=== PATIENT | female | born 1945 | race Caucasian/White ===

== ENCOUNTER → 2019-07-27 11:33 | Outpatient (CLI) | payer MEDICARE, BC, SELFPAY ==
--- NOTE | 2019-07-27 | DI.MG.S_ITS ---
BILATERAL DIGITAL SCREENING MAMMOGRAM 3D/2D WITH CAD: 07/27/2019 CLINICAL: Routine screening. Family history of breast cancer. Comparison is made to exams dated: 08/24/2017 mammogram, 08/13/2015 mammogram, and 08/02/2014 mammogram - [facility]. The tissue of both breasts is heterogeneously dense. This may lower the sensitivity of mammography. Current study was also evaluated with a Computer Aided Detection (CAD) system. No significant masses, calcifications, or other findings are seen in either breast. There has been no significant interval change. IMPRESSION: NEGATIVE There is no mammographic evidence of malignancy. A 1 year screening mammogram is recommended. This exam was interpreted at Station ID: [id number]. NOTE: For mammograms, a report in lay terms will be sent to the patient. Approximately 15% of breast malignancies will not be visualized mammographically. In the management of a palpable breast mass, a negative mammogram must not discourage biopsy of a clinically suspicious lesion. Electronically Signed By: Rafael conde/niyah:07/27/2019 16:25:09 letter sent: Normal Exam ACR BI-RADS Category 1: Negative 3341F
== END ==
PROVIDERS: PCP Student in an Organized Health Care Education/Training Program; Visit Provider Student in an Organized Health Care Education/Training Program
DX: Z12.31 Encounter for screening mammogram for malignant neoplasm of breast (principal); Z80.3 Family history of malignant neoplasm of breast
CPT/HCPCS: 77063; 77067

== ENCOUNTER → 2019-09-24 12:34 | Outpatient (CLI) | payer MEDICARE, BC, SELFPAY | PROVIDERS: PCP Student in an Organized Health Care Education/Training Program; Visit Provider Student in an Organized Health Care Education/Training Program | DX: Z13.820 Encounter for screening for osteoporosis (principal); Z78.0 Asymptomatic menopausal state; E07.9 Disorder of thyroid, unspecified; Z90.722 Acquired absence of ovaries, bilateral | CPT/HCPCS: 77080 ==

== ENCOUNTER → 2020-09-05 11:56 | Outpatient (CLI) | payer MEDICARE, BC, SELFPAY ==
--- NOTE | 2020-09-05 | DI.MG.S_ITS ---
BILATERAL DIGITAL SCREENING MAMMOGRAM 3D/2D WITH CAD: 09/05/2020 CLINICAL: Routine screening. Family history of breast cancer. Comparison is made to exams dated: 07/27/2019 mammogram, 08/24/2017 mammogram, and 08/13/2015 mammogram - [facility]. The tissue of both breasts is heterogeneously dense. This may lower the sensitivity of mammography. Current study was also evaluated with a Computer Aided Detection (CAD) system. No significant masses, calcifications, or other findings are seen in either breast. There has been no significant interval change. IMPRESSION: NEGATIVE There is no mammographic evidence of malignancy. A 1 year screening mammogram is recommended. This exam was interpreted at Station ID: [id number]. NOTE: For mammograms, a report in lay terms will be sent to the patient. Approximately 15% of breast malignancies will not be visualized mammographically. In the management of a palpable breast mass, a negative mammogram must not discourage biopsy of a clinically suspicious lesion. Electronically Signed By: Carly green/niyah:09/05/2020 12:51:48 letter sent: Normal Exam ACR BI-RADS Category 1: Negative 3341F
== END ==
PROVIDERS: PCP Student in an Organized Health Care Education/Training Program; Referring Provider Student in an Organized Health Care Education/Training Program; Visit Provider Student in an Organized Health Care Education/Training Program
DX: Z12.31 Encounter for screening mammogram for malignant neoplasm of breast (principal); Z80.3 Family history of malignant neoplasm of breast
CPT/HCPCS: 77063; 77067

== ENCOUNTER → 2021-09-14 08:34 | Outpatient (CLI) | payer MEDICARE, BC, SELFPAY ==
--- NOTE | 2021-09-14 08:35 | DI.MG.S_ITS ---
BILATERAL DIGITAL SCREENING MAMMOGRAM 3D/2D WITH CAD: 09/14/2021 CLINICAL: Routine screening. Family history of breast cancer. Comparison is made to exams dated: 09/05/2020 mammogram, 07/27/2019 mammogram, and 08/24/2017 mammogram - [facility]. The tissue of both breasts is heterogeneously dense. This may lower the sensitivity of mammography. Current study was also evaluated with a Computer Aided Detection (CAD) system. There is a possible developing irregular asymmetry in the left breast at 12 o'clock posterior depth. This is more prominent and increased in size. No other significant masses, calcifications, or other findings are seen in either breast. IMPRESSION: INCOMPLETE: NEEDS ADDITIONAL IMAGING EVALUATION The possible developing irregular asymmetry in the left breast is indeterminate. Additional views with possible ultrasound are recommended. This exam was interpreted at Station ID: [id number]. NOTE: For mammograms, a report in lay terms will be sent to the patient. Approximately 15% of breast malignancies will not be visualized mammographically. In the management of a palpable breast mass, a negative mammogram must not discourage biopsy of a clinically suspicious lesion. Electronically Signed By: Bridget angel/niyah:09/14/2021 10:31:50 letter sent: Additional Imaging Needed ACR BI-RADS Category 0: Incomplete 3340F
== END ==
PROVIDERS: PCP Student in an Organized Health Care Education/Training Program; Referring Provider Student in an Organized Health Care Education/Training Program; Visit Provider Student in an Organized Health Care Education/Training Program
DX: Z12.31 Encounter for screening mammogram for malignant neoplasm of breast (principal); Z80.3 Family history of malignant neoplasm of breast
CPT/HCPCS: 77063; 77067

== ENCOUNTER → 2021-09-21 11:47 | Outpatient (CLI) | payer MEDICARE, BC, SELFPAY ==
--- NOTE | 2021-09-21 | DI.MG.S_ITS ---
UNILATERAL LEFT DIGITAL DIAGNOSTIC MAMMOGRAM 3D/2D WITH ADDITIONAL VIEWS: 09/21/2021 CLINICAL: Additional evaluation requested from prior study. Comparison is made to exams dated: 09/14/2021 mammogram, 09/05/2020 mammogram, 07/27/2019 mammogram, 08/24/2017 mammogram, and 08/13/2015 mammogram - [facility]. The tissue of left breast is heterogeneously dense. This may lower the sensitivity of mammography. The previously seen focal asymmetry in the left breast at the 12 o'clock position posterior depth disperses on spot compression views, compatible with normal fibroglandular breast tissue. No significant masses, calcifications, or other findings are seen in the breast. IMPRESSION: NEGATIVE There is no mammographic evidence of malignancy. A 1 year screening mammogram is recommended. This exam was interpreted at Station ID: [id number]. NOTE: For mammograms, a report in lay terms will be sent to the patient. Approximately 15% of breast malignancies will not be visualized mammographically. In the management of a palpable breast mass, a negative mammogram must not discourage biopsy of a clinically suspicious lesion. Electronically Signed By: Ruddy ng/niyah:09/21/2021 12:21:33 letter sent: Normal Exam ACR BI-RADS Category 1: Negative 3341F
== END ==
PROVIDERS: PCP Student in an Organized Health Care Education/Training Program; Referring Provider Student in an Organized Health Care Education/Training Program; Visit Provider Student in an Organized Health Care Education/Training Program
DX: R92.8 Other abnormal and inconclusive findings on diagnostic imaging of breast (principal)
CPT/HCPCS: 77065; G0279

== ENCOUNTER → 2021-11-23 10:16 | Outpatient (CLI) | payer MEDICARE, OTHER, SELFPAY ==
[2021-11-23 15:19] LABS: COVID19 -Nasal RAPID Negative (Negative)
== END ==
PROVIDERS: PCP Student in an Organized Health Care Education/Training Program; Visit Provider Physician Assistant
DX: Z01.812 Encounter for preprocedural laboratory examination (principal); Z20.822 Contact with and (suspected) exposure to COVID-19
CPT/HCPCS: 87635; C9803

== ENCOUNTER 2021-11-24 08:22 | Day surgery (SDC) | payer MEDICARE, OTHER, SELFPAY ==
[2021-11-24 09:42] VITALS: BP 149/79; PULSE 70; RESP 18; TEMP 36.6; O2SAT 99; BMI 23.6
[2021-11-24] MEDS: CATARACT EYE COMPOUND (10 DROPS/SYRINGE) 3 DROPS EYE-OP (09:50)
[2021-11-24] MEDS: PROPARACAINE 0.5% OPHTH SOL 2 DROPS EYE-OP (09:50)
--- NOTE | 2021-11-24 10:21 | P.OP_ITS ---
Operative Date/Time/Diagnoses Pre-op diagnosis: Nuclear Cataract Left eye Post-op diagnosis: same Procedure & Clinicians Same procedure as scheduled: Yes Surgeon: Yang Lala Anesthesia Type: MAC +/- and Sedation Operative Notes Procedure in detail: Patient brought to the operating suite. Tetracaine drops placed in the left eye. Marking instrument was used to rosa maria the vertical and horizontal meridians. Patient was prepped and draped in sterile manner. Wire lid speculum was placed in the eye. Marking instrument was used to rosa maria the 80 degree meridian. Beta dine drops were placed on the eye. This was irrigated. Lidocaine jelly was placed on the eye. A paracentesis port was created with a side-port blade. 0.1 mL 1% preservative free lidocaine was injected into the anterior chamber. The anterior chamber was deepened with viscoelastic. 2.6 mm keratome was used to create a temporal clear corneal incision. Cystotome and Utrata forceps were used to create continuous tear capsulorrhexis. Balanced salt solution was used to hydro dissect the nucleus. The phacoemulsification handpiece was inserted and the nucleus was removed using the stop and chop technique. The irrigation aspiration handpiece was inserted and the remaining cortex was removed. Anterior chamber was deepened with viscoelastic. An Thakkar RML380 intraocular lens with a power of 23.0 was injected into the capsular bag. Irrigation aspiration handpiece was inserted and the remaining viscoelastic was removed. The lens was rotated to the 80 degree meridian. Incision was hydrated with balanced salt solution and found to be leak free with pressure with Weck-Shelly sponges. 0.1 mL Vigamox injected anterior chamber. 0.3 mL Kenalog 10 mg was injected subconjunctivally. Lid speculum was removed. The patient left the operating room in excellent condition. Complications: none Post-operative Condition: stable Disposition: same day surgery
--- NOTE | 2021-11-24 10:21 | PM.PREOP ---
Pre-operative Note Interval Note History & Physical reviewed/Exam performed by Physician: Yes Changes to H&P: No
[2021-11-24] MEDS: HYALURONATE SODIUM 30 MG-10 MG/ML SYRINGES 1 BOX INTRAOCULA (10:39)
[2021-11-24] MEDS: MOXIFLOXACIN INJ 4 MG/0.8 ML VIAL 0.5 MG EYE-OP (10:40)
[2021-11-24] MEDS: PHENYLEPHRINE/LIDOCAINE VIAL (OR) 0.2 ML EYE-OP (10:40)
[2021-11-24] MEDS: TRIAMCINOLONE 50 MG/5 ML VIAL INJ (10:40)
[2021-11-24] MEDS: LIDOCAINE 2% (GLYDO) 6 ML GEL TOP (10:42)
[2021-11-24] MEDS: BALANCED SALT IRRIG SOLN NO.2 500 ML, EPINEPHrine 1 MG IRR (10:42)
[2021-11-24] MEDS: TETRACAINE 0.5% OPHTH DROPS 4 ML 2 DROPS EYE-OP (10:42)
[2021-11-24 10:54] VITALS: BP 124/62; PULSE 64; RESP 16; TEMP 36.6; O2SAT 99
--- NOTE | 2021-11-24 11:22 | SUR.PHASEII ---
Pt ready to go, ride called, not available x 2. Message left x 2.
== END 2021-11-24 11:20 | disposition home or self-care (01) ==
PROVIDERS: PCP Student in an Organized Health Care Education/Training Program; Referring Provider Ophthalmology; Visit Provider Ophthalmology
PROC: (CPT 66984; principal; 2021-11-24 10:15)
DX: H25.12 Age-related nuclear cataract, left eye (principal)
CPT/HCPCS: 66984; J0171; J3301; V2787

== ENCOUNTER → 2021-12-07 09:47 | Outpatient (CLI) | payer MEDICARE, OTHER, SELFPAY ==
[2021-12-07 13:30] LABS: COVID19 -Nasal RAPID Negative (Negative)
== END ==
PROVIDERS: PCP Student in an Organized Health Care Education/Training Program; Referring Provider Ophthalmology; Visit Provider Ophthalmology
DX: Z20.822 Contact with and (suspected) exposure to COVID-19 (principal)
CPT/HCPCS: 87635; C9803

== ENCOUNTER 2021-12-08 11:54 | Day surgery (SDC) | payer MEDICARE, OTHER, SELFPAY ==
[2021-12-08] MEDS: PROPARACAINE 0.5% OPHTH SOL 2 DROPS EYE-OP (12:09)
[2021-12-08] MEDS: CATARACT EYE COMPOUND (10 DROPS/SYRINGE) 3 DROPS EYE-OP (12:10)
[2021-12-08 12:14] VITALS: BP 147/81; PULSE 75; RESP 14; TEMP 36.7; O2SAT 99
--- NOTE | 2021-12-08 12:49 | SUR.OPER ---
Supine on eye stretcher, head on extension cradle secured with tape. Arms tucked at sides with blanket. Pillow under knees.
--- NOTE | 2021-12-08 13:00 | PM.PREOP ---
Pre-operative Note Interval Note History & Physical reviewed/Exam performed by Physician: Yes Changes to H&P: No Addendum Addendum Note: There are no non surgical alternatives to the patients condition. Deterioration of the patient's condition is expected. There is the possibility that delay results in more complex future surgery.
[2021-12-08] MEDS: HYALURONATE SODIUM 30 MG-10 MG/ML SYRINGES 1 BOX INTRAOCULA (13:10)
[2021-12-08] MEDS: MOXIFLOXACIN INJ 4 MG/0.8 ML VIAL 0.5 MG EYE-OP (13:10)
[2021-12-08] MEDS: PHENYLEPHRINE/LIDOCAINE VIAL (OR) 0.2 ML EYE-OP (13:11)
[2021-12-08] MEDS: TRIAMCINOLONE 50 MG/5 ML VIAL INJ (13:11)
[2021-12-08] MEDS: BALANCED SALT IRRIG SOLN NO.2 500 ML, EPINEPHrine 1 MG IRR (13:11)
[2021-12-08] MEDS: LIDOCAINE 2% (GLYDO) 6 ML GEL TOP (13:12)
[2021-12-08] MEDS: TETRACAINE 0.5% OPHTH DROPS 4 ML 2 DROPS EYE-OP (13:12)
[2021-12-08 13:22] VITALS: BP 138/59; PULSE 66; RESP 12; TEMP 37; O2SAT 98
--- NOTE | 2021-12-08 13:22 | P.OP_ITS ---
Operative Date/Time/Diagnoses Pre-op diagnosis: Nuclear cataract right eye Procedure & Clinicians Procedure: Cataract Surgery Same procedure as scheduled: Yes Surgeon: Yang Lala Anesthesia Type: MAC +/- and Sedation Operative Notes Procedure in detail: Patient brought to the operating suite. Tetracaine drops placed in the right eye. Marking instrument was used to rosa maria the vertical and horizontal meridians. Patient was prepped and draped in sterile manner. Wire lid speculum was placed in the eye. Marking instrument was used to rosa maria the 80 degree meridian. Betadine drops were placed on the eye. This was irrigated. Lidocaine jelly was placed on the eye. A paracentesis port was created with a side-port blade. 0.1 mL 1% preservative free lidocaine was injected into the anterior chamber. The anterior chamber was deepened with viscoelastic. 2.6 mm keratome was used to create a temporal clear corneal incision. Cystotome and Utrata forceps were used to create continuous tear capsulorrhexis. Balanced salt solution was used to hydro dissect the nucleus. The phacoemulsification handpiece was inserted and the nucleus was removed using the stop and chop technique. The irrigation aspiration handpiece was inserted and the remaining cortex was removed. Anterior chamber was deepened with viscoelastic. An Thakkar [id number] intraocular lens with a power of 24.0 was injected into the capsular bag. Irrigation aspiration handpiece was inserted and the remaining viscoelastic was removed. The lens was rotated to the 80 degree meridian. Incision was hydrated with balanced salt solution and found to be leak free with pressure with Weck-Shelly sponges. 0.1 mL Vigamox injected anterior chamber. 0.3 mL Kenalog 10 mg was injected subco njunctivally. Lid speculum was removed. The patient left the operating room in excellent condition. Complications: none Post-operative Condition: stable Disposition: same day surgery
== END 2021-12-08 13:38 | disposition home or self-care (01) ==
PROVIDERS: PCP Student in an Organized Health Care Education/Training Program; Referring Provider Ophthalmology; Visit Provider Ophthalmology
PROC: (CPT 66984; principal; 2021-12-08 13:45)
DX: H25.11 Age-related nuclear cataract, right eye (principal); E03.9 Hypothyroidism, unspecified
CPT/HCPCS: 66984; J0171; J2250; J3010; J3301; V2787

== ENCOUNTER → 2022-06-28 07:39 | Outpatient (CLI) | payer MEDICARE, OTHER, SELFPAY ==
[2022-06-28 08:27] LABS: BUN Creatinine Ratio 16.5 (6-22); Blood Urea Nitrogen 14 mg/dL (7-17); Calcium 8.7 mg/dL (8.4-10.2); Carbon Dioxide 29 mmol/L (22-32); Chloride 103 mmol/L (98-107); Estimated Glomerular Filt Rate > 60 mL/min (>60); Glucose 103 mg/dL (80-110); HEMOLYSIS < 15 (0-50); Potassium 4.2 mmol/L (3.4-5.1); Sodium 137 mmol/L (137-145)
== END ==
PROVIDERS: PCP Family Medicine; Referring Provider Family Medicine; Visit Provider Family Medicine
DX: U07.1 COVID-19 (principal)
CPT/HCPCS: 36415; 80048

== ENCOUNTER → 2022-09-21 09:09 | Outpatient (CLI) | payer MEDICARE, OTHER, SELFPAY ==
--- NOTE | 2022-09-21 | DI.MG.S_ITS ---
BILATERAL DIGITAL SCREENING MAMMOGRAM 3D/2D WITH CAD: 09/21/2022 CLINICAL: Routine screening. Family history of breast cancer. Comparison is made to exams dated: 09/14/2021 mammogram, 09/05/2020 mammogram, and 07/27/2019 mammogram - [facility]. Both breasts are heterogeneously dense, which may obscure small masses (category c / 51-75% glandular tissue). Current study was also evaluated with a Computer Aided Detection (CAD) system. No significant masses, calcifications, or other findings are seen in either breast. There has been no significant interval change. IMPRESSION: NEGATIVE There is no mammographic evidence of malignancy. A 1 year screening mammogram is recommended. Based on the Tyrer Cuzick model (a risk assessment model) the patient's lifetime risk is 6.7% and her 10 year risk is 6.7%. According to the ACR, ACS, and NCCN guidelines, an annual breast MRI exam along with mammogram is recommended if the patient's lifetime risk is 20% or greater. This exam was interpreted at Station ID: [id number]. NOTE: For mammograms, a report in lay terms will be sent to the patient. Approximately 15% of breast malignancies will not be visualized mammographically. In the management of a palpable breast mass, a negative mammogram must not discourage biopsy of a clinically suspicious lesion. Electronically Signed By: Carly green/niyah:09/21/2022 15:10:34 letter sent: Normal Exam ACR BI-RADS Category 1: Negative 3341F
== END ==
PROVIDERS: PCP Family Medicine; Referring Provider Family Medicine; Visit Provider Family Medicine
DX: Z12.31 Encounter for screening mammogram for malignant neoplasm of breast (principal); Z80.3 Family history of malignant neoplasm of breast
CPT/HCPCS: 77063; 77067

== ENCOUNTER → 2023-03-23 09:01 | Outpatient (CLI) | payer MEDICARE, OTHER, SELFPAY ==
--- NOTE | 2023-03-23 09:02 | DI.RAD.S_ITS ---
PROCEDURE: XR LUMBAR SPINE MIN 4V INDICATIONS: LOW BACK PAIN TECHNIQUE: 5 views of the lumbar spine were acquired, including bilateral oblique views. COMPARISON: None. FINDINGS: Bones: 5 nonrib-bearing vertebrae are present. There is normal bony alignment. No vertebral body compression fractures. No suspicious bony lesions. Moderate disc height loss at all levels. Grade 1 retrolisthesis of L3 on L4, L2 on L3. Soft tissues: Overlying bowel gas pattern is normal. No suspicious soft tissue calcifications. Oblique images: No pars defects. IMPRESSION: Grade 1 retrolisthesis of L3 on L4 and L2 on L3. Moderate, multilevel degenerative disc disease. Dictated by: Rupesh Jaramillo M.D. on 03/23/2023 at 15:39 Approved by: Rupesh Jaramillo M.D. on 03/23/2023 at 15:40
== END ==
PROVIDERS: PCP Family Medicine; Referring Provider Anesthesiology; Visit Provider Anesthesiology
DX: M51.16 Intervertebral disc disorders with radiculopathy, lumbar region (principal); M47.26 Other spondylosis with radiculopathy, lumbar region; M43.16 Spondylolisthesis, lumbar region; M54.50 Low back pain, unspecified; G89.29 Other chronic pain
CPT/HCPCS: 72110; 99214

== ENCOUNTER → 2023-03-30 13:36 | Outpatient (CLI) | payer MEDICARE, OTHER, SELFPAY ==
--- NOTE | 2023-03-30 13:38 | DI.MRI.S_ITS ---
PROCEDURE: MR LUMBAR SPINE WO CON INDICATIONS: Lumbar Radiculopathy TECHNIQUE: Noncontrast sagittal T1 spin echo and T2 fast echo, sagittal STIR, and T2 fast spin echo through the lumbar spine. In cases with scoliosis, additional coronal T2 fast spin echo may be performed. COMPARISON: [facility], , L-SPINE WITHOUT CONTRAST, 11/03/2016, 10:26. FINDINGS: Image quality: Excellent. Alignment and Curvature: There is normal bony alignment. Bone Marrow: Marrow is of normal overall signal. No acute vertebral body compression fractures. Spinal Cord: Conus medullaris terminates at the L1 level. Visualized cord demonstrates normal signal and size. Paraspinous Soft Tissues: No paravertebral masses. T12-L1: Severe disc desiccation and height loss. Broad-based disc bulge. Mild facet ligamentum flavum hypertrophy. No canal stenosis. No foraminal stenosis. Findings are unchanged from the study dated November 03, 2016. L1-L2: Moderate disc desiccation and height loss. Broad-based disc bulge. Mild facet ligamentum flavum hypertrophy. No canal stenosis. No foraminal stenosis. Findings are unchanged. L2-L3: Severe disc desiccation and height loss. No canal stenosis. Mild bilateral foraminal stenosis. The extent of reactive endplate changes has increased when compared with the 2016 study. L3-L4: Moderate disc desiccation and height loss. Broad-based disc bulge. Moderate facet ligamentum flavum hypertrophy. No canal stenosis. Mild bilateral foraminal stenosis. Findings are unchanged from the prior study. L4-L5: Moderate disc desiccation and height loss. Broad-based disc bulge. Moderate facet ligamentum flavum hypertrophy. Mild foraminal stenosis. No canal stenosis. Findings are unchanged. L5-S1: Severe disc desiccation and height loss. Mild facet sclerosis. No canal stenosis. Mild left foraminal stenosis. Findings are similar to the 2016 study. IMPRESSION: 1. Overall similar findings when compared with the MRI dated November 03, 2016. There are slightly increased reactive endplate changes at L2-3 when compared with the prior study. No significant canal stenosis or foraminal narrowing of the lumbar spine. Dictated by: Carly Montez M.D. on 03/30/2023 at 15:41 Approved by: Carly Montez M.D. on 03/30/2023 at 15:45
== END ==
PROVIDERS: PCP Family Medicine; Referring Provider Anesthesiology; Visit Provider Anesthesiology
DX: M54.16 Radiculopathy, lumbar region (principal)
CPT/HCPCS: 72148

== ENCOUNTER → 2023-09-05 17:13 | Outpatient (ROUT) | payer MEDICARE, OTHER, SELFPAY | PROVIDERS: Family Provider Family Medicine; PCP Family Medicine; Visit Provider Dermatology | DX: L02.416 Cutaneous abscess of left lower limb (principal) | CPT/HCPCS: 87070; 87075; 87205 ==

== ENCOUNTER → 2023-09-29 12:56 | Outpatient (CLI) | payer MEDICARE, OTHER, SELFPAY ==
--- NOTE | 2023-09-29 13:00 | DI.MG.S_ITS ---
BILATERAL DIGITAL SCREENING MAMMOGRAM 3D/2D WITH CAD: 09/29/2023 CLINICAL: Routine screening. Family history of breast cancer. Comparison is made to exams dated: 09/21/2022 mammogram, 09/21/2021 mammogram, 09/14/2021 mammogram, and 09/05/2020 mammogram - [facility]. Both breasts are heterogeneously dense, which may obscure small masses (category c / 51-75% glandular tissue). Current study was also evaluated with a Computer Aided Detection (CAD) system. There is a possible developing irregular high density asymmetry with an obscured margin in the right breast at 10 o'clock posterior depth. No other significant masses, calcifications, or other findings are seen in either breast. IMPRESSION: INCOMPLETE: NEEDS ADDITIONAL IMAGING EVALUATION The possible developing irregular high density asymmetry in the right breast is indeterminate. Additional views with possible ultrasound are recommended. Based on the Tyrer Cuzick model (a risk assessment model) the patient's lifetime risk is 6.2% and her 10 year risk is 0.0%. According to the ACR, ACS, and NCCN guidelines, an annual breast MRI exam along with mammogram is recommended if the patient's lifetime risk is 20% or greater. This exam was interpreted at Station ID: [id number]. NOTE: For mammograms, a report in lay terms will be sent to the patient. Approximately 15% of breast malignancies will not be visualized mammographically. In the management of a palpable breast mass, a negative mammogram must not discourage biopsy of a clinically suspicious lesion. Electronically Signed By: Bridget angel/niyah:09/29/2023 17:17:13 letter sent: Additional Imaging Needed ACR BI-RADS Category 0: Incomplete [id number]
== END ==
PROVIDERS: Family Provider Family Medicine; PCP Family Medicine; Referring Provider Family Medicine; Visit Provider Family Medicine
DX: Z12.31 Encounter for screening mammogram for malignant neoplasm of breast (principal); Z80.3 Family history of malignant neoplasm of breast
CPT/HCPCS: 77063; 77067

== ENCOUNTER → 2023-10-24 11:52 | Outpatient (CLI) | payer MEDICARE, OTHER, SELFPAY ==
--- NOTE | 2023-10-24 | DI.MG.S_ITS ---
UNILATERAL RIGHT DIGITAL DIAGNOSTIC MAMMOGRAM 3D/2D WITH ADDITIONAL VIEWS: 10/24/2023 CLINICAL: Additional evaluation requested from prior study. Comparison is made to exams dated: 09/29/2023 mammogram, 09/21/2022 mammogram, 09/21/2021 mammogram, and 09/14/2021 mammogram - [facility]. The right breast is heterogeneously dense, which may obscure small masses (category c / 51-75% glandular tissue). The asymmetry in the right breast at 10 o'clock posterior depth seen on the screening mammogram is not seen in additional views. No other significant masses or calcifications are seen in the breast. IMPRESSION: BENIGN There is no mammographic evidence of malignancy. Return to annual mammogram screening schedule is recommended. Based on the Tyrer Cuzick model (a risk assessment model) the patient's lifetime risk is 6.2% and her 10 year risk is 0.0%. According to the ACR, ACS, and NCCN guidelines, an annual breast MRI exam along with mammogram is recommended if the patient's lifetime risk is 20% or greater. This exam was interpreted at Station ID: [id number]. NOTE: For mammograms, a report in lay terms will be sent to the patient. Approximately 15% of breast malignancies will not be visualized mammographically. In the management of a palpable breast mass, a negative mammogram must not discourage biopsy of a clinically suspicious lesion. Electronically Signed By: Carly Montez M.D. lk/:10/24/2023 12:29:18 letter sent: Normal Exam ACR BI-RADS Category 2: Benign Finding(s) 3342F
== END ==
PROVIDERS: Family Provider Family Medicine; PCP Family Medicine; Referring Provider Family Medicine; Visit Provider Family Medicine
DX: R92.8 Other abnormal and inconclusive findings on diagnostic imaging of breast (principal)
CPT/HCPCS: 77065; G0279

== ENCOUNTER 2023-11-24 13:45 | Outpatient (RCR) | payer MEDICARE, OTHER, SELFPAY ==
--- NOTE | 2023-06-16 16:44 | PT.OIE ---
Current Diagnoses Other chronic pain (06/16/23) Spondylosis without myelopathy or radiculopathy, lumbar region (06/16/23) Other intervertebral disc degeneration, lumbar region (06/16/23) Radiculopathy, lumbar region (06/16/23) Low back pain, unspecified (06/16/23) Muscle weakness (generalized) (06/16/23) Past Medical History (Last Updated 04/04/23 @ 14:32 by Kevan Marino MD) Arthritis Chronic low back pain Costochondritis DDD (degenerative disc disease), lumbar DJD (degenerative joint disease) Hiatal hernia Hypothyroidism Lumbar radiculopathy Lumbar spondylosis Past Surgical History (Last Reviewed 04/04/23 @ 14:29 by Kevan Marino MD) H/O partial thyroidectomy History of hysterectomy Status post tonsillectomy and adenoidectomy Visit Care Team Role Provider Type Genie Milligan MD Family Provider Physician Primary Care Provider Specialty: Family Practice Address: [address] [place] [address], [facility] Email: [email or web address] Kevan Marino MD Attending Provider Physician Referring Provider Specialty: Anesthesiology Interventional Radiology Pain Management Address: [address] [place] [address], [id number] Email: [email or web address] Physical Therapy Initial Evaluation PT-OP-A Visit Information Start: 06/02/23 18:16 Freq: Status: Active Protocol: Document 06/16/23 12:33 LRN (Rec: 06/16/23 13:28 LRN [id number]) Out-Patient Physical Therapy Visit Information Visit Information Visit Type Initial Evaluation Visit Start Time 12:33 Visit Stop Time 13:27 Total Visit Minutes 49 Visit Number 1 Evaluation Information Evaluation Date 06/16/23 Precautions Precautions LATEX ALLERGY, arthritis, thyroid disorder PT-OP-B Current Condition Start: 06/02/23 18:16 Freq: Status: Active Protocol: Document 06/16/23 12:33 LRN (Rec: 06/16/23 13:28 LRN [id number]) Current Condition History of Current Condition Onset Date Last year worsened after return to gym exer Current Complaints Back pain and R LE pain. History of Current Condition For 25 yrs has had back pain and R hip pain. Variable onset of bilateral leg pain that comes only on one side at a time. States the pain moves around. Walking, standing has worsened her back and shooting pain in R hip on lateral side into the top/ lateral foot. Pain with twisting, like wiping after a BM. Pt reports being referred to PT after imaging comparison to see if her back was worsening. Prior Treatments and Tests X-Ray report 03/23/23: Grade 1 retrolisthesis of L3 on L4 and L2 on L3. Moderate, multilevel degenerative disc disease (pt reported it showed arthritis, impinging on nerves and R hip bursitis). MRI report 03/30/23: Overall similar findings when compared with the MRI dated November 03, 2016 (moderate to severe disc dessication and height loss). There was slightly increased reactive endplate changes at L2-3. No significant canal stenosis or foraminal narrowing of the lumbar spine. Pt reports in/out of PT for years. Last time 10-12 yrs ago had PT and was on an ex program, but then moved and took care of grandson from 8 months old until 8 yrs old. Future Testing and Treatments Planned Next MD visit is after 2 PT treatment visits. Developmental History Developmental History In 1999, bent over into car to pick something up and couldn' t move and straighten up. Pt was living in [place] at the time and was told not to lift >20#. Now when she lifts a gallon of milk she has tightness in the low back that warns her not to lift more. Treatment Goals Patient/Caregiver Goals Pt goal: To learn what she should avoid doing, Be placed on an exercise program. How to keep from aggrevating the LB to avoid increased pain . Current Functional Impairments (Reported) Functional Limitations- ADL's Standing or walking 1 hr or less (causes compaction of spine). Sit for a long time. Sometimes was wakes with pain in the hips and generally sore in hips waking up in morning. Avoids twisting as much as she can. Functional Limitations- Other ........... Vacuming results in pain. Personal Factors Other Personal Factors That May Effect Pt spouse sometimes needs Therapy/Recovery physical assist with tasks, pt has 25 yr history of LBP. PT-OP-C Subjective Start: 06/02/23 18:16 Freq: Status: Active Protocol: Document 06/16/23 12:33 LRN (Rec: 06/16/23 13:28 LRN [id number]) Patient Questionnaires Oswestry Low Back Index Oswestry Score 32 Oswestry Impairment 20 to 39% Impaired (Score 20- 39) OP-PT Pain Assessment Pain Assessment Grid Paper Pain Assessment Grid Completed Yes Location Low back Pain Location Details Across low back Intensity 3 Scale Used Numeric (0 - 10) Description Aching,Dull,Sharp Description- Other Pain ranges 2-9 Frequency Frequent Pain Duration Comes and goes. Pain Aggravating Factors Activity,Standing,Walking Pain Alleviating Factors Heat,Medication Other Pain Alleviating Factors Tylenol PT-OP-H Neuro Start: 06/02/23 18:16 Freq: Status: Active Protocol: Document 06/16/23 12:33 LRN (Rec: 06/16/23 13:28 LRN [id number]) Sensation Evaluation Gross Sensation Gross Sensation WNL PT-OP-J Posture/Palpation/Skin Start: 06/02/23 18:16 Freq: Status: Active Protocol: Document 06/16/23 12:33 LRN (Rec: 06/16/23 13:28 LRN [id number]) Posture Evaluation Position Standing T-Spine Posture Increased Kyphosis L-Spine Posture Decreased Lordosis,Shifted Left Scapula Posture (R) Depressed Pelvis Posture (R) Iliac Crest Superior Comments Posture Comments Mild increased lordosis, protruding abdomen Palpation Assessment Location Sacrum Palpation Location Sacrum Palpation Findings Tenderness Palpation Details Sacrum in extension. Hips Palpation Location Gluteals Palpation Details R Gluteals - atrophy L Gluteals - Ms tightness Low back Palpation Location Paraspinals, Interspinous spaces L1 through S1 Palpation Findings Muscle Guarding,Tenderness PT-OP-K Range of Motion Start: 06/02/23 18:16 Freq: Status: Active Protocol: Document 06/16/23 12:33 LRN (Rec: 06/16/23 13:28 LRN [id number]) Lumbar Spine Range of Motion Lumbar Spine Active Degrees Testing Position Standing Flexion 50 Extension 5 Rotation Left 20 Rotation Right 20 Lateral Flexion Left 7 Lateral Flexion Right 5 Comments Trunk AROM: Flexion is 50 deg ?s with 30 deg?s hip flexion, Trunk extension is 5 deg?s with 3 deg?s hip extension. Hip Goniometric Range of Motion Hip Right Passive Testing Position Supine Straight Leg Raise 75 Internal Rotation 30 External Rotation 65 Comments R hip pain with ER. Left Passive Testing Position Supine Straight Leg Raise 55 Internal Rotation 20 External Rotation 65 PT-OP-L Special Tests Start: 06/02/23 18:16 Freq: Status: Active Protocol: Document 06/16/23 12:33 LRN (Rec: 06/16/23 13:28 LRN [id number]) Special Tests Lumbar Spine Special Tests Straight Leg Raise Test Results + R LE: 75 deg's. L LE: 65 deg's. Comments RLE: Pain in R posterior thigh and hip PT-OP-M Strength Start: 06/02/23 18:16 Freq: Status: Active Protocol: Document 06/16/23 12:33 LRN (Rec: 06/16/23 13:28 LRN [id number]) Trunk Strength Trunk Manual Muscle Testing Core Stabilization Pt is unable to maintain core stability with LE MMT. Hip Strength Hip Manual Muscle Testing Right Flexion (L2) 3+ Fair+ Extension (S1) 5 Normal Abduction 4 Good Adduction 2 Poor External Rotation 5 Normal Internal Rotation 5 Normal Comments Pain with ER Left Flexion (L2) 3+ Fair+ Extension (S1) 3 Fair Abduction 3 Fair Adduction 1 Trace External Rotation 3 Fair Internal Rotation 5 Normal PT-OP-Q Treatments Start: 06/02/23 18:16 Freq: Status: Active Protocol: Document 06/16/23 12:33 LRN (Rec: 06/16/23 13:28 LRN [id number]) Self-Care/Home Management Treatment Education Other Education Discussed results of evaluation, goals, and plan of care (POC). Pt agreeable to goals and POC of possible PT beyond 2 visits. Discussed at length modification of pt's home activities and pt making choices of activities vs pain. PT-OP-T Assessment and Plan Start: 06/02/23 18:16 Freq: Status: Active Protocol: Document 06/16/23 12:33 LRN (Rec: 06/16/23 13:28 LRN [id number]) Physical Therapy Assessment Rehab Potential Rehabilitation Potential Good Evaluation Complexity Number of Personal Factors/Comorbidities 1-2 Number of Body Systems Impaired 4 or More Clinical Presentation at Evaluation Evolving Impairments Impairments Activity Tolerance,Functional Activities,Pain,Posture,ROM, Soft Tissue Mobility,Strength, Transfers Other Impairments Limited lifting of 20# or greater. Goals Three Impairment Decreased hip strength Impairment R hip: Flex 3+/5, AB 4/5, AD 2/5, ER/IR 5/5. L hip: Flex 3+/5, AB & Ext 3 /5, AD 1/5, ER 3/5, IR 5/5 Detention Goal (LTG) Improve hip strength to 4-/5 or greater in areas of weakness. LTG Duration 12 weeks (09/14/23) Two Impairment Decreased core strength and stability Impairment Pt limited in functional activities, especially motions including twisting. Short Term Goal (STG) Pt will be educated in movements and activities to avoid. STG Duration 6 wks (07/31/23) Rope Silica Machine Operator Goal (LTG) Pt will be able to maintain core stability with MMT of lower extremities to demonstrate improved core stability and strength. LTG Duration 12 weeks (09/14/23) One Impairment Pt lacks appropriate self care HEP. Short Term Goal (STG) Pt will be educated in log roll transfers, proper body mechanics for ADLs, proper sitting/standing posture. STG Duration 6 wks (07/31/23) Rope Silica Machine Operator Goal (LTG) Be placed on an exercise program of self care HEP for core/hip strengthening, stabilization and mobility ex' s. LTG Duration 12 weeks (09/14/23) Assessment Summary Assessment Pt is a 77 year old female who presents with + R PSLR and very limited mobility of the hips and trunk bilaterally with RLE symptoms consistent with R sciatic pain althought she is +R PSLR. She has notable Weakness in the R hip. As expected she has limited LB mobility and pain in the low back and sacral region, although X-ray and MRI shows more dysfunction in the upper lumbar region. The pt also demonstrates poor body mechanics with transfers and will benefit from transfer training to reduce LB strain. The pt would benefit from more than 2 therapy visits for skilled physical therapy for pt education, Soft tissue mobilization (STM), therapeutic exercise and progression of a core stabilization program and proper body mechanics training , in order to improve her core stability, minimize pain and maximize function in above stated goals. If you have any questions or concerns, please feel free to contact me at your convenience. Physical Therapy Plan Frequency and Duration Frequency of Treatment 2x/Week Duration of treatment (weeks) 6 Plan of Care Start Date 06/16/23 Plan of Care End Date 07/31/23 Therapeutic Interventions Therapeutic Interventions Home Exercise Program,Joint Mobilizations,Manual Therapy, Neuromuscular Re-education, Self-Care/Home Management,Soft Tissue Mobilization, Therapeutic Activities, Therapeutic Exercises Modalities Cold Pack/Ice Massage,Electric Stimulation,Hot Packs, Ultrasound Next Visit Focus/Plan Next Note Type Treatment Note Next Visit Plan HEP in next 1-2 visits, then reassess need for further therapy needs. Education: Transfer & body mechanics training STM: Paraspinals Ex's: Trunk and hip mobility, Core (abdominals)/hip strengthening. Manual: Lumbar traction, sacral balancing. Modalities: Cryotherapy/MH
--- NOTE | 2023-06-16 16:46 | PT.OPPOC ---
Physical, Occupational & Speech Therapy At [facility] Current Diagnoses Other chronic pain (06/16/23) Spondylosis without myelopathy or radiculopathy, lumbar region (06/16/23) Other intervertebral disc degeneration, lumbar region (06/16/23) Radiculopathy, lumbar region (06/16/23) Low back pain, unspecified (06/16/23) Muscle weakness (generalized) (06/16/23) Visit Care Team Role Provider Type Genie Milligan MD Family Provider Physician Primary Care Provider Specialty: Family Practice Address: [address] [place] [address], [id number] Email: [email or web address] Kevan Marino MD Attending Provider Physician Referring Provider Specialty: Anesthesiology Interventional Radiology Pain Management Address: [address] [place] [address], [id number] Email: [email or web address] Plan Of Care PT-OP-T Assessment and Plan Start: 06/02/23 18:16 Freq: Status: Active Protocol: Document 06/16/23 12:33 LRN (Rec: 06/16/23 13:28 LRN [id number]) Physical Therapy Assessment Rehab Potential Rehabilitation Potential Good Evaluation Complexity Number of Personal Factors/Comorbidities 1-2 Number of Body Systems Impaired 4 or More Clinical Presentation at Evaluation Evolving Impairments Impairments Activity Tolerance,Functional Activities,Pain,Posture,ROM, Soft Tissue Mobility,Strength, Transfers Other Impairments Limited lifting of 20# or greater. Goals Three Impairment Decreased hip strength Impairment R hip: Flex 3+/5, AB 4/5, AD 2/5, ER/IR 5/5. L hip: Flex 3+/5, AB & Ext 3 /5, AD 1/5, ER 3/5, IR 5/5 Fdc Goal (LTG) Improve hip strength to 4-/5 or greater in areas of weakness. LTG Duration 12 weeks (09/14/23) Two Impairment Decreased core strength and stability Impairment Pt limited in functional activities, especially motions including twisting. Short Term Goal (STG) Pt will be educated in movements and activities to avoid. STG Duration 6 wks (07/31/23) Open Winder Goal (LTG) Pt will be able to maintain core stability with MMT of lower extremities to demonstrate improved core stability and strength. LTG Duration 12 weeks (09/14/23) One Impairment Pt lacks appropriate self care HEP. Short Term Goal (STG) Pt will be educated in log roll transfers, proper body mechanics for ADLs, proper sitting/standing posture. STG Duration 6 wks (07/31/23) Fdc Goal (LTG) Be placed on an exercise program of self care HEP for core/hip strengthening, stabilization and mobility ex' s. LTG Duration 12 weeks (09/14/23) Assessment Summary Assessment Pt is a 77 year old female who presents with + R PSLR and very limited mobility of the hips and trunk bilaterally with RLE symptoms consistent with R sciatic pain althought she is +R PSLR. She has notable Weakness in the R hip. As expected she has limited LB mobility and pain in the low back and sacral region, although X-ray and MRI shows more dysfunction in the upper lumbar region. The pt also demonstrates poor body mechanics with transfers and will benefit from transfer training to reduce LB strain. The pt would benefit from more than 2 therapy visits for skilled physical therapy for pt education, Soft tissue mobilization (STM), therapeutic exercise and progression of a core stabilization program and proper body mechanics training , in order to improve her core stability, minimize pain and maximize function in above stated goals. If you have any questions or concerns, please feel free to contact me at your convenience. Physical Therapy Plan Frequency and Duration Frequency of Treatment 2x/Week Duration of treatment (weeks) 6 Plan of Care Start Date 06/16/23 Plan of Care End Date 07/31/23 Therapeutic Interventions Therapeutic Interventions Home Exercise Program,Joint Mobilizations,Manual Therapy, Neuromuscular Re-education, Self-Care/Home Management,Soft Tissue Mobilization, Therapeutic Activities, Therapeutic Exercises Modalities Cold Pack/Ice Massage,Electric Stimulation,Hot Packs, Ultrasound Next Visit Focus/Plan Next Note Type Treatment Note Next Visit Plan HEP in next 1-2 visits, then reassess need for further therapy needs. Education: Transfer & body mechanics training STM: Paraspinals Ex's: Trunk and hip mobility, Core (abdominals)/hip strengthening. Manual: Lumbar traction, sacral balancing. Modalities: Cryotherapy/MH Plan of Care Dates Plan of Care Start Date 06/16/23 Plan of Care End Date 07/31/23 Electronically Signed by: Carly Austin, PT 06/17/23 [id number] If you are in agreement with this Plan of Care, please return a signed and dated copy. I have reviewed this Plan of Care and certify that the skilled therapy services above are required to meet the patient?s needs. Physician Signature Date Printed Name and Credentials Clinical Instructor Signature Printed Name and Credentials
--- NOTE | 2023-06-23 10:56 | PT.OTN ---
Current Diagnoses Other chronic pain (06/23/23) Spondylosis without myelopathy or radiculopathy, lumbar region (06/23/23) Other intervertebral disc degeneration, lumbar region (06/23/23) Radiculopathy, lumbar region (06/23/23) Low back pain, unspecified (06/23/23) Muscle weakness (generalized) (06/23/23) Physical Therapy Treatment Note PT-OP-A Visit Information Start: 06/02/23 18:16 Freq: Status: Active Protocol: Document 06/23/23 09:38 LRN (Rec: 06/23/23 10:30 LRN [id number]) Out-Patient Physical Therapy Visit Information Visit Information Visit Type Treatment Note Visit Start Time 09:37 Visit Stop Time 10:18 Total Visit Minutes 41 Visit Number 2 PT-OP-B Current Condition Start: 06/02/23 18:16 Freq: Status: Active Protocol: Document 06/16/23 12:33 LRN (Rec: 06/16/23 13:28 LRN [id number]) Current Condition History of Current Condition Onset Date Last year worsened after return to gym exer Current Complaints Back pain and R LE pain. History of Current Condition For 25 yrs has had back pain and R hip pain. Variable onset of bilateral leg pain that comes only on one side at a time. States the pain moves around. Walking, standing has worsened her back and shooting pain in R hip on lateral side into the top/ lateral foot. Pain with twisting, like wiping after a BM. Pt reports being referred to PT after imaging comparison to see if her back was worsening. Prior Treatments and Tests X-Ray report 03/23/23: Grade 1 retrolisthesis of L3 on L4 and L2 on L3. Moderate, multilevel degenerative disc disease (pt reported it showed arthritis, impinging on nerves and R hip bursitis). MRI report 03/30/23: Overall similar findings when compared with the MRI dated November 03, 2016 (moderate to severe disc dessication and height loss). There was slightly increased reactive endplate changes at L2-3. No significant canal stenosis or foraminal narrowing of the lumbar spine. Pt reports in/out of PT for years. Last time 10-12 yrs ago had PT and was on an ex program, but then moved and took care of grandson from 8 months old until 8 yrs old. Future Testing and Treatments Planned Next MD visit is after 2 PT treatment visits. Developmental History Developmental History In 1999, bent over into car to pick something up and couldn' t move and straighten up. Pt was living in [place] at the time and was told not to lift >20#. Now when she lifts a gallon of milk she has tightness in the low back that warns her not to lift more. Treatment Goals Patient/Caregiver Goals Pt goal: To learn what she should avoid doing, Be placed on an exercise program. How to keep from aggrevating the LB to avoid increased pain . Current Functional Impairments (Reported) Functional Limitations- ADL's Standing or walking 1 hr or less (causes compaction of spine). Sit for a long time. Sometimes was wakes with pain in the hips and generally sore in hips waking up in morning. Avoids twisting as much as she can. Functional Limitations- Other ........... Vacuming results in pain. Personal Factors Other Personal Factors That May Effect Pt spouse sometimes needs Therapy/Recovery physical assist with tasks, pt has 25 yr history of LBP. PT-OP-C Subjective Start: 06/02/23 18:16 Freq: Status: Active Protocol: Document 06/23/23 09:38 LRN (Rec: 06/23/23 10:30 LRN [id number]) OP-PT Subjective Patient Comments Patient Comments Bad pain one night in R hip going down lateral leg. Has had twiges of pain like when you turn wrong. States she will do more therapy than 1-[address] Marino agrees. PT-OP-H Neuro Start: 06/02/23 18:16 Freq: Status: Active Protocol: Document 06/16/23 12:33 LRN (Rec: 06/16/23 13:28 LRN [id number]) Sensation Evaluation Gross Sensation Gross Sensation WNL PT-OP-J Posture/Palpation/Skin Start: 06/02/23 18:16 Freq: Status: Active Protocol: Document 06/16/23 12:33 LRN (Rec: 06/16/23 13:28 LRN [id number]) Posture Evaluation Position Standing T-Spine Posture Increased Kyphosis L-Spine Posture Decreased Lordosis,Shifted Left Scapula Posture (R) Depressed Pelvis Posture (R) Iliac Crest Superior Comments Posture Comments Mild increased lordosis, protruding abdomen Palpation Assessment Location Sacrum Palpation Location Sacrum Palpation Findings Tenderness Palpation Details Sacrum in extension. Hips Palpation Location Gluteals Palpation Details R Gluteals - atrophy L Gluteals - Ms tightness Low back Palpation Location Paraspinals, Interspinous spaces L1 through S1 Palpation Findings Muscle Guarding,Tenderness PT-OP-K Range of Motion Start: 06/02/23 18:16 Freq: Status: Active Protocol: Document 06/16/23 12:33 LRN (Rec: 06/16/23 13:28 LRN [id number]) Lumbar Spine Range of Motion Lumbar Spine Active Degrees Testing Position Standing Flexion 50 Extension 5 Rotation Left 20 Rotation Right 20 Lateral Flexion Left 7 Lateral Flexion Right 5 Comments Trunk AROM: Flexion is 50 deg ?s with 30 deg?s hip flexion, Trunk extension is 5 deg?s with 3 deg?s hip extension. Hip Goniometric Range of Motion Hip Right Passive Testing Position Supine Straight Leg Raise 75 Internal Rotation 30 External Rotation 65 Comments R hip pain with ER. Left Passive Testing Position Supine Straight Leg Raise 55 Internal Rotation 20 External Rotation 65 PT-OP-L Special Tests Start: 06/02/23 18:16 Freq: Status: Active Protocol: Document 06/16/23 12:33 LRN (Rec: 06/16/23 13:28 LRN [id number]) Special Tests Lumbar Spine Special Tests Straight Leg Raise Test Results + R LE: 75 deg's. L LE: 65 deg's. Comments RLE: Pain in R posterior thigh and hip PT-OP-M Strength Start: 06/02/23 18:16 Freq: Status: Active Protocol: Document 06/16/23 12:33 LRN (Rec: 06/16/23 13:28 LRN [id number]) Trunk Strength Trunk Manual Muscle Testing Core Stabilization Pt is unable to maintain core stability with LE MMT. Hip Strength Hip Manual Muscle Testing Right Flexion (L2) 3+ Fair+ Extension (S1) 5 Normal Abduction 4 Good Adduction 2 Poor External Rotation 5 Normal Internal Rotation 5 Normal Comments Pain with ER Left Flexion (L2) 3+ Fair+ Extension (S1) 3 Fair Abduction 3 Fair Adduction 1 Trace External Rotation 3 Fair Internal Rotation 5 Normal PT-OP-Q Treatments Start: 06/02/23 18:16 Freq: Status: Active Protocol: Document 06/23/23 09:38 LRN (Rec: 06/23/23 10:30 LRN [id number]) Therapeutic Activity Therapeutic Activity Sidelie positioning Name Sidelie positioning training with pillows btn legs Reps/Minutes 3' Sitting posture training Name Sitting posture training Reps/Minutes 4' Comments Much cuing and reinforcement of concept of not slouching with sitting and to minimize flexion at hips when sitting for prolonged time. Sit<>supine transfer Name Sit<>supine transfer training Reps/Minutes 11 Comments Much repetition of training needed for pt to understand how to perform log roll transfer to support and protect the low back. Manual Therapy Treatment Manual Traction Lumbar Details Gentle slow pull traction with belt Body Position Hooklying Reps/Duration 5' Comments Pt felt stretch in L upper back with lumbar traction. Pt reports a little lessening of bilateral hip pain with traction. Self-Care/Home Management Treatment Education Patient Education Body Mechanics,Posture Other Education Pt education in: - proper standing sitting posture. - proper body mechanics for ADLs. - proper transfer sit<>supine. - LB excess pressure on discs in all positions. - position of comfort with recommendation to avoid prone lying at nighttime. Handouts issued and reviewed for education topics above. PT-OP-T Assessment and Plan Start: 06/02/23 18:16 Freq: Status: Active Protocol: Document 06/23/23 09:38 LRN (Rec: 06/23/23 10:30 LRN [id number]) Physical Therapy Assessment Goals Three Impairment Decreased hip strength Impairment R hip: Flex 3+/5, AB 4/5, AD 2/5, ER/IR 5/5. L hip: Flex 3+/5, AB & Ext 3 /5, AD 1/5, ER 3/5, IR 5/5 Community Resource Consultant Goal (LTG) Improve hip strength to 4-/5 or greater in areas of weakness. LTG Duration 12 weeks (09/14/23) Two Impairment Decreased core strength and stability Impairment Pt limited in functional activities, especially motions including twisting. Short Term Goal (STG) Pt will be educated in movements and activities to avoid. 06/23/23: Pt educated in proper transfer sit<>supine and proper body mechanics. STG Duration 6 wks (07/31/23) discussed proper movement 06/23/23 Community Resource Consultant Goal (LTG) Pt will be able to maintain core stability with MMT of lower extremities to demonstrate improved core stability and strength. LTG Duration 12 weeks (09/14/23) One Impairment Pt lacks appropriate self care HEP. Short Term Goal (STG) Pt will be educated in log roll transfers, proper body mechanics for ADLs, proper sitting/standing posture. STG Duration 6 wks (07/31/23) (06/23/23: MET GOAL) Community Resource Consultant Goal (LTG) Be placed on an exercise program of self care HEP for core/hip strengthening, stabilization and mobility ex' s. LTG Duration 12 weeks (09/14/23) Assessment Summary Assessment Pt receptive to education in minimizing onset of LBP & RLE pain through proper posturing, body mechanics and positioning. Pt does not hold core stable with transfer sit <>supine and appears to hve poor awareness of she is choosing to sit slouched and move without core stabilized; therefore further training may be needed. Review of referring physician note doesn 't specify number of PT visits he wants pt to receive. Physical Therapy Plan Frequency and Duration Frequency of Treatment 2x/Week Duration of treatment (weeks) 6 Plan of Care Start Date 06/16/23 Plan of Care End Date 07/31/23 Next Visit Focus/Plan Next Note Type Treatment Note Next Visit Plan Education: movements and activities to avoid (STG #2). STM: Paraspinals Manual: Self mob for T/S Ex's: Trunk and hip mobility, Core (abdominals)/hip strengthening. Manual: sacral balancing, occasional check for need of L /S traction. Modalities: Cryotherapy/MH
--- NOTE | 2023-06-27 12:19 | PT.OTN ---
Current Diagnoses Other chronic pain (06/27/23) Spondylosis without myelopathy or radiculopathy, lumbar region (06/27/23) Other intervertebral disc degeneration, lumbar region (06/27/23) Radiculopathy, lumbar region (06/27/23) Low back pain, unspecified (06/27/23) Muscle weakness (generalized) (06/27/23) Physical Therapy Treatment Note PT-OP-A Visit Information Start: 06/02/23 18:16 Freq: Status: Active Protocol: Document 06/27/23 11:20 LRN (Rec: 06/27/23 12:18 LRN [id number]) Out-Patient Physical Therapy Visit Information Visit Information Visit Type Treatment Note Visit Start Time 11:20 Visit Stop Time 12:00 Total Visit Minutes 40 Visit Number 2 Evaluation Information Evaluation Date 06/16/23 Precautions Precautions LATEX ALLERGY, arthritis, thyroid disorder PT-OP-B Current Condition Start: 06/02/23 18:16 Freq: Status: Active Protocol: Document 06/16/23 12:33 LRN (Rec: 06/16/23 13:28 LRN [id number]) Current Condition History of Current Condition Onset Date Last year worsened after return to gym exer Current Complaints Back pain and R LE pain. History of Current Condition For 25 yrs has had back pain and R hip pain. Variable onset of bilateral leg pain that comes only on one side at a time. States the pain moves around. Walking, standing has worsened her back and shooting pain in R hip on lateral side into the top/ lateral foot. Pain with twisting, like wiping after a BM. Pt reports being referred to PT after imaging comparison to see if her back was worsening. Prior Treatments and Tests X-Ray report 03/23/23: Grade 1 retrolisthesis of L3 on L4 and L2 on L3. Moderate, multilevel degenerative disc disease (pt reported it showed arthritis, impinging on nerves and R hip bursitis). MRI report 03/30/23: Overall similar findings when compared with the MRI dated November 03, 2016 (moderate to severe disc dessication and height loss). There was slightly increased reactive endplate changes at L2-3. No significant canal stenosis or foraminal narrowing of the lumbar spine. Pt reports in/out of PT for years. Last time 10-12 yrs ago had PT and was on an ex program, but then moved and took care of grandson from 8 months old until 8 yrs old. Future Testing and Treatments Planned Next MD visit is after 2 PT treatment visits. Developmental History Developmental History In 1999, bent over into car to pick something up and couldn' t move and straighten up. Pt was living in [place] at the time and was told not to lift >20#. Now when she lifts a gallon of milk she has tightness in the low back that warns her not to lift more. Treatment Goals Patient/Caregiver Goals Pt goal: To learn what she should avoid doing, Be placed on an exercise program. How to keep from aggrevating the LB to avoid increased pain . Current Functional Impairments (Reported) Functional Limitations- ADL's Standing or walking 1 hr or less (causes compaction of spine). Sit for a long time. Sometimes was wakes with pain in the hips and generally sore in hips waking up in morning. Avoids twisting as much as she can. Functional Limitations- Other ........... Vacuming results in pain. Personal Factors Other Personal Factors That May Effect Pt spouse sometimes needs Therapy/Recovery physical assist with tasks, pt has 25 yr history of LBP. PT-OP-C Subjective Start: 06/02/23 18:16 Freq: Status: Active Protocol: Document 06/27/23 11:20 LRN (Rec: 06/27/23 12:18 LRN [id number]) OP-PT Subjective Patient Comments Patient Comments States [place] the [place] 2 hrs was problematic due to pain on R hip starting. Bursitis pain every morning. Stiff this morning. Seeing Dr Marino tomorrow PT-OP-H Neuro Start: 06/02/23 18:16 Freq: Status: Active Protocol: Document 06/16/23 12:33 LRN (Rec: 06/16/23 13:28 LRN [id number]) Sensation Evaluation Gross Sensation Gross Sensation WNL PT-OP-J Posture/Palpation/Skin Start: 06/02/23 18:16 Freq: Status: Active Protocol: Document 06/16/23 12:33 LRN (Rec: 06/16/23 13:28 LRN [id number]) Posture Evaluation Position Standing T-Spine Posture Increased Kyphosis L-Spine Posture Decreased Lordosis,Shifted Left Scapula Posture (R) Depressed Pelvis Posture (R) Iliac Crest Superior Comments Posture Comments Mild increased lordosis, protruding abdomen Palpation Assessment Location Sacrum Palpation Location Sacrum Palpation Findings Tenderness Palpation Details Sacrum in extension. Hips Palpation Location Gluteals Palpation Details R Gluteals - atrophy L Gluteals - Ms tightness Low back Palpation Location Paraspinals, Interspinous spaces L1 through S1 Palpation Findings Muscle Guarding,Tenderness PT-OP-K Range of Motion Start: 06/02/23 18:16 Freq: Status: Active Protocol: Document 06/16/23 12:33 LRN (Rec: 06/16/23 13:28 LRN [id number]) Lumbar Spine Range of Motion Lumbar Spine Active Degrees Testing Position Standing Flexion 50 Extension 5 Rotation Left 20 Rotation Right 20 Lateral Flexion Left 7 Lateral Flexion Right 5 Comments Trunk AROM: Flexion is 50 deg ?s with 30 deg?s hip flexion, Trunk extension is 5 deg?s with 3 deg?s hip extension. Hip Goniometric Range of Motion Hip Right Passive Testing Position Supine Straight Leg Raise 75 Internal Rotation 30 External Rotation 65 Comments R hip pain with ER. Left Passive Testing Position Supine Straight Leg Raise 55 Internal Rotation 20 External Rotation 65 PT-OP-L Special Tests Start: 06/02/23 18:16 Freq: Status: Active Protocol: Document 06/16/23 12:33 LRN (Rec: 06/16/23 13:28 LRN [id number]) Special Tests Lumbar Spine Special Tests Straight Leg Raise Test Results + R LE: 75 deg's. L LE: 65 deg's. Comments RLE: Pain in R posterior thigh and hip PT-OP-M Strength Start: 06/02/23 18:16 Freq: Status: Active Protocol: Document 06/16/23 12:33 LRN (Rec: 06/16/23 13:28 LRN [id number]) Trunk Strength Trunk Manual Muscle Testing Core Stabilization Pt is unable to maintain core stability with LE MMT. Hip Strength Hip Manual Muscle Testing Right Flexion (L2) 3+ Fair+ Extension (S1) 5 Normal Abduction 4 Good Adduction 2 Poor External Rotation 5 Normal Internal Rotation 5 Normal Comments Pain with ER Left Flexion (L2) 3+ Fair+ Extension (S1) 3 Fair Abduction 3 Fair Adduction 1 Trace External Rotation 3 Fair Internal Rotation 5 Normal PT-OP-Q Treatments Start: 06/02/23 18:16 Freq: Status: Active Protocol: Document 06/27/23 11:20 LRN (Rec: 06/27/23 12:18 LRN [id number]) Therapeutic Exercises Supine Exercises TA/PF tightening Supine Exercise Name TA/PF tightening TA tightening Supine Exercise Name TA tightening Reps/Minutes 6' Neutral spine awareness Supine Exercise Name Neutral spine awareness Reps/Minutes 8 Self-Care/Home Management Treatment Education Patient Education Home Exercise Program,Posture Other Education Educated and discussed best sitting posture of her home rocking chair and positions to avoid (slouching) Educated and discussed posturing in sitting and supine in neutral spine positioning and positions to avoid (working in forward bend and rotation, sitting bending forward, instead to hip hinge ). Used anatomy model to demonstrate changes in spine curves with excessive slouching. Activities Self-Care/Home Management Activities Issued & reviewed HEP: Core stabilization program for first 4 ex's (pelvic tilts, PF /TA, Multipfidi/PF, and Heel slides (HS)). Pt to work up to 10x 3 sets of heel slides before advancing to HS/SLR. PT-OP-T Assessment and Plan Start: 06/02/23 18:16 Freq: Status: Active Protocol: Document 06/27/23 11:20 LRN (Rec: 06/27/23 12:18 LRN [id number]) Physical Therapy Assessment Goals Three Impairment Decreased hip strength Impairment R hip: Flex 3+/5, AB 4/5, AD 2/5, ER/IR 5/5. L hip: Flex 3+/5, AB & Ext 3 /5, AD 1/5, ER 3/5, IR 5/5 Residential Goal (LTG) Improve hip strength to 4-/5 or greater in areas of weakness. LTG Duration 12 weeks (09/14/23) Two Impairment Decreased core strength and stability Impairment Pt limited in functional activities, especially motions including twisting. Short Term Goal (STG) Pt will be educated in movements and activities to avoid. 06/23/23: Pt educated in proper transfer sit<>supine and proper body mechanics. 06/27/23: Educated pt in proper transfer sit<>supine from L side of plinth and in proper body mechanics for her activities of ironing, mopping and vacumming floors. 06/27/23: Educated pt in positions and movements to avoid and educated in hip hinging for activities. STG Duration 6 wks (07/31/23) (06/23/23: MET GOAL) Residential Goal (LTG) Pt will be able to maintain core stability with MMT of lower extremities to demonstrate improved core stability and strength. LTG Duration 12 weeks (09/14/23) One Impairment Pt lacks appropriate self care HEP. Short Term Goal (STG) Pt will be educated in log roll transfers, proper body mechanics for ADLs, proper sitting/standing posture. STG Duration 6 wks (07/31/23) (06/23/23: MET GOAL) Recruiting Coordinator Goal (LTG) Be placed on an exercise program of self care HEP for core/hip strengthening, stabilization and mobility ex' s. 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 Pt was not able to hold neutral spine in supine with heel slides. Physical Therapy Plan Frequency and Duration Frequency of Treatment 2x/Week Duration of treatment (weeks) 6 Plan of Care Start Date 06/16/23 Plan of Care End Date 07/31/23 Next Visit Focus/Plan Next Note Type Treatment Note Next Visit Plan Pt to see MD tomorrow. Pt to return in 1 month 07/22/23 for 2x/wk for 8 weeks rehab; therefore new POC needed on return. Review core stab program progression. STM: Paraspinals Manual: Self mob for T/S Ex's: Trunk and hip mobility, Core (abdominals)/hip strengthening. Manual: sacral balancing, occasional check for need of L /S traction. Modalities: Cryotherapy/MH
--- NOTE | 2023-07-22 17:45 | PT.OTN ---
Current Diagnoses Other chronic pain (07/22/23) Spondylosis without myelopathy or radiculopathy, lumbar region (07/22/23) Other intervertebral disc degeneration, lumbar region (07/22/23) Radiculopathy, lumbar region (07/22/23) Low back pain, unspecified (07/22/23) Muscle weakness (generalized) (07/22/23) Physical Therapy Treatment Note PT-OP-A Visit Information Start: 06/02/23 18:16 Freq: Status: Active Protocol: Document 07/22/23 13:21 LRN (Rec: 07/22/23 17:38 LRN [id number]) Out-Patient Physical Therapy Visit Information Visit Information Visit Type Progress Note Visit Start Time 13:21 Visit Stop Time 13:59 Total Visit Minutes 38 Visit Number 3 Evaluation Information Evaluation Date 06/16/23 Precautions Precautions LATEX ALLERGY, arthritis, thyroid disorder PT-OP-B Current Condition Start: 06/02/23 18:16 Freq: Status: Active Protocol: Document 06/16/23 12:33 LRN (Rec: 06/16/23 13:28 LRN [id number]) Current Condition History of Current Condition Onset Date Last year worsened after return to gym exer Current Complaints Back pain and R LE pain. History of Current Condition For 25 yrs has had back pain and R hip pain. Variable onset of bilateral leg pain that comes only on one side at a time. States the pain moves around. Walking, standing has worsened her back and shooting pain in R hip on lateral side into the top/ lateral foot. Pain with twisting, like wiping after a BM. Pt reports being referred to PT after imaging comparison to see if her back was worsening. Prior Treatments and Tests X-Ray report 03/23/23: Grade 1 retrolisthesis of L3 on L4 and L2 on L3. Moderate, multilevel degenerative disc disease (pt reported it showed arthritis, impinging on nerves and R hip bursitis). MRI report 03/30/23: Overall similar findings when compared with the MRI dated November 03, 2016 (moderate to severe disc dessication and height loss). There was slightly increased reactive endplate changes at L2-3. No significant canal stenosis or foraminal narrowing of the lumbar spine. Pt reports in/out of PT for years. Last time 10-12 yrs ago had PT and was on an ex program, but then moved and took care of grandson from 8 months old until 8 yrs old. Future Testing and Treatments Planned Next MD visit is after 2 PT treatment visits. Developmental History Developmental History In 1999, bent over into car to pick something up and couldn' t move and straighten up. Pt was living in [place] at the time and was told not to lift >20#. Now when she lifts a gallon of milk she has tightness in the low back that warns her not to lift more. Treatment Goals Patient/Caregiver Goals Pt goal: To learn what she should avoid doing, Be placed on an exercise program. How to keep from aggrevating the LB to avoid increased pain . Current Functional Impairments (Reported) Functional Limitations- ADL's Standing or walking 1 hr or less (causes compaction of spine). Sit for a long time. Sometimes was wakes with pain in the hips and generally sore in hips waking up in morning. Avoids twisting as much as she can. Functional Limitations- Other ........... Vacuming results in pain. Personal Factors Other Personal Factors That May Effect Pt spouse sometimes needs Therapy/Recovery physical assist with tasks, pt has 25 yr history of LBP. PT-OP-C Subjective Start: 06/02/23 18:16 Freq: Status: Active Protocol: Document 07/22/23 13:21 LRN (Rec: 07/22/23 17:38 LRN [id number]) OP-PT Subjective Patient Comments Patient Comments While on vacatioin walked ~ mile while and then every step hurt. Once home, sitting in chair helped to ease out the discomfort. Woke today in a lot of pain in legs and low back. Same condition or getting worse. PT-OP-H Neuro Start: 06/02/23 18:16 Freq: Status: Active Protocol: Document 06/16/23 12:33 LRN (Rec: 06/16/23 13:28 LRN [id number]) Sensation Evaluation Gross Sensation Gross Sensation WNL PT-OP-J Posture/Palpation/Skin Start: 06/02/23 18:16 Freq: Status: Active Protocol: Document 06/16/23 12:33 LRN (Rec: 06/16/23 13:28 LRN [id number]) Posture Evaluation Position Standing T-Spine Posture Increased Kyphosis L-Spine Posture Decreased Lordosis,Shifted Left Scapula Posture (R) Depressed Pelvis Posture (R) Iliac Crest Superior Comments Posture Comments Mild increased lordosis, protruding abdomen Palpation Assessment Location Sacrum Palpation Location Sacrum Palpation Findings Tenderness Palpation Details Sacrum in extension. Hips Palpation Location Gluteals Palpation Details R Gluteals - atrophy L Gluteals - Ms tightness Low back Palpation Location Paraspinals, Interspinous spaces L1 through S1 Palpation Findings Muscle Guarding,Tenderness PT-OP-K Range of Motion Start: 06/02/23 18:16 Freq: Status: Active Protocol: Document 06/16/23 12:33 LRN (Rec: 06/16/23 13:28 LRN [id number]) Lumbar Spine Range of Motion Lumbar Spine Active Degrees Testing Position Standing Flexion 50 Extension 5 Rotation Left 20 Rotation Right 20 Lateral Flexion Left 7 Lateral Flexion Right 5 Comments Trunk AROM: Flexion is 50 deg ?s with 30 deg?s hip flexion, Trunk extension is 5 deg?s with 3 deg?s hip extension. Hip Goniometric Range of Motion Hip Right Passive Testing Position Supine Straight Leg Raise 75 Internal Rotation 30 External Rotation 65 Comments R hip pain with ER. Left Passive Testing Position Supine Straight Leg Raise 55 Internal Rotation 20 External Rotation 65 PT-OP-L Special Tests Start: 06/02/23 18:16 Freq: Status: Active Protocol: Document 06/16/23 12:33 LRN (Rec: 06/16/23 13:28 LRN [id number]) Special Tests Lumbar Spine Special Tests Straight Leg Raise Test Results + R LE: 75 deg's. L LE: 65 deg's. Comments RLE: Pain in R posterior thigh and hip PT-OP-M Strength Start: 06/02/23 18:16 Freq: Status: Active Protocol: Document 06/16/23 12:33 LRN (Rec: 06/16/23 13:28 LRN [id number]) Trunk Strength Trunk Manual Muscle Testing Core Stabilization Pt is unable to maintain core stability with LE MMT. Hip Strength Hip Manual Muscle Testing Right Flexion (L2) 3+ Fair+ Extension (S1) 5 Normal Abduction 4 Good Adduction 2 Poor External Rotation 5 Normal Internal Rotation 5 Normal Comments Pain with ER Left Flexion (L2) 3+ Fair+ Extension (S1) 3 Fair Abduction 3 Fair Adduction 1 Trace External Rotation 3 Fair Internal Rotation 5 Normal PT-OP-Q Treatments Start: 06/02/23 18:16 Freq: Status: Active Protocol: Document 07/22/23 13:21 LRN (Rec: 07/22/23 17:38 LRN [id number]) Therapeutic Exercises Supine Exercises NS/Heel slides Supine Exercise Name NS/heels slides Side bilateral Reps/Minutes 9' Comments Manual assist & phys/v cuing needed to TA and multifidus during slides Neutral Spine(NS)/TA/Multifidus/PF Supine Exercise Name Neutral Spine(NS)/TA/ Multifidus/PF Reps/Minutes 5' Comments Req'd NS awareness training before ex; then cuing needed for all ms grps TA/PF tightening Supine Exercise Name TA/PF tightening Reps/Minutes 2' Comments Cuing to tighten PF w/o arching back. TA tightening Supine Exercise Name TA tightening Reps/Minutes 6' Comments Cuing to pull belly button to spine Neutral spine awareness Supine Exercise Name Neutral spine awareness training Reps/Minutes 4' Sitting Exercises NS/TA/Multifidus/PF Sitting Exercise Name NS/TA/Multifidus/PF Reps/Minutes 12' PT-OP-T Assessment and Plan Start: 06/02/23 18:16 Freq: Status: Active Protocol: Document 07/22/23 13:21 LRN (Rec: 07/22/23 17:38 LRN [id number]) Physical Therapy Assessment Rehab Potential Rehabilitation Potential Good Evaluation Complexity Number of Personal Factors/Comorbidities 1-2 Number of Body Systems Impaired 4 or More Clinical Presentation at Evaluation Evolving Impairments Impairments Activity Tolerance,Functional Activities,Pain,Posture,ROM, Soft Tissue Mobility,Strength, Transfers Other Impairments Limited lifting of 20# or greater. Goals Three Impairment Decreased hip strength Impairment R hip: Flex 3+/5, AB 4/5, AD 2/5, ER/IR 5/5. L hip: Flex 3+/5, AB & Ext 3 /5, AD 1/5, ER 3/5, IR 5/5 Short Term Goal (STG) Pt will be independent on a HEP of hip strengthening and mobility ex's. STG Duration 5 wks (08/26/23) Fci Goal (LTG) Improve hip strength to 4-/5 or greater in areas of weakness. LTG Duration 10 wks (09/30/23) Two Impairment Decreased core strength and stability Impairment Pt limited in functional activities, especially motions including twisting. Short Term Goal (STG) Pt will be educated in movements and activities to avoid. 06/23/23: Pt educated in proper transfer sit<>supine and proper body mechanics. 06/27/23: Educated pt in proper transfer sit<>supine from L side of plinth and in proper body mechanics for her activities of ironing, mopping and vacumming floors. 06/27/23: Educated pt in positions and movements to avoid and educated in hip hinging for activities. STG Duration 6 wks (07/31/23) (06/23/23: MET GOAL) [facility]ci Goal (LTG) Pt will be able to maintain core stability with MMT of lower extremities to demonstrate improved core stability and strength. LTG Duration 10 wks (09/30/23) One Impairment Pt lacks appropriate self care HEP. Short Term Goal (STG) Pt will be educated in log roll transfers, proper body mechanics for ADLs, proper sitting/standing posture. STG Duration 6 wks (07/31/23) (06/23/23: MET GOAL) [facility]ci Goal (LTG) Be placed on an exercise program of self care HEP for core strengthening, stabilization and mobility ex' s. 06/27/23: HEP: Neutral spine, LTG Duration 10 wks (09/30/23) Assessment Summary Assessment The pt is a 78 yo female who was seen for her initial eval 06/16/23, and 2 treatment visits before leaving for vacation for the 2 months and returns with worsening of her LB and hips. It appears she did not have a good understanding of her HEP ex's issued before she left on vacation and needed a through review. She was extremely slow in understanding and learning, but after much education in core tightening ex's she was finally able to show understanding of her HEP of progressive TA exercises. Now that the pt has no other plans of leaving the area I recommend the pt resume her rehabilitation program for mechanical and soft tissue dysfunction of her low back and sacrum. Initially she presented with bilateral Sciatic pain and +R PSLR, MRI showing moderate to severe disc desiccation of lumbar region. She has pain in bilateral hips and demonstrates demonstrates poor body mechanics with transfers. The pt would benefit from skilled physical therapy for pt education, Soft tissue mobilization (STM), therapeutic exercise and progression of a core stabilization program and proper body mechanics training , in order to improve her core stability, minimize pain and maximize function in above stated goals. Physical Therapy Plan Frequency and Duration Frequency of Treatment 2x/Week Duration of treatment (weeks) 10 Plan of Care Start Date 07/22/23 Plan of Care End Date 09/30/23 Therapeutic Interventions Therapeutic Interventions Home Exercise Program,Joint Mobilizations,Manual Therapy, Neuromuscular Re-education, Self-Care/Home Management,Soft Tissue Mobilization, Therapeutic Activities, Therapeutic Exercises Modalities Cold Pack/Ice Massage,Electric Stimulation,Hot Packs, Ultrasound Next Visit Focus/Plan Next Note Type Treatment Note Next Visit Plan 2x/wk for 10 weeks extended lumbar rehab due to holiday and vacation schedule. Review again core stab program progression. STM: Paraspinals Manual: Self mob for T/S, lumbar traction Ex's: Trunk (disc dessication) and hip mobility (note: + R PSLR), Core (abdominals)/hip strengthening. Education: Posture, body mechanics/ADLs, rest positioning. Manual: sacral balancing, occasional check for need of L /S traction due to disc dessication. Modalities: Cryotherapy/MH/US
--- NOTE | 2023-07-22 17:45 | PT.OPPOC ---
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 Kevan Marino MD Attending Provider Physician Referring Provider Specialty: Anesthesiology Interventional Radiology Pain Management Address: [address] [place] [address], [id number] Email: [email or web address] Plan Of Care PT-OP-T Assessment and Plan Start: 06/02/23 18:16 Freq: Status: Active Protocol: Document 07/22/23 13:21 LRN (Rec: 07/22/23 17:38 LRN [id number]) Physical Therapy Assessment Rehab Potential Rehabilitation Potential Good Evaluation Complexity Number of Personal Factors/Comorbidities 1-2 Number of Body Systems Impaired 4 or More Clinical Presentation at Evaluation Evolving Impairments Impairments Activity Tolerance,Functional Activities,Pain,Posture,ROM, Soft Tissue Mobility,Strength, Transfers Other Impairments Limited lifting of 20# or greater. Goals Three Impairment Decreased hip strength Impairment R hip: Flex 3+/5, AB 4/5, AD 2/5, ER/IR 5/5. L hip: Flex 3+/5, AB & Ext 3 /5, AD 1/5, ER 3/5, IR 5/5 Short Term Goal (STG) Pt will be independent on a HEP of hip strengthening and mobility ex's. STG Duration 5 wks (08/26/23) Filter Plant Operator Goal (LTG) Improve hip strength to 4-/5 or greater in areas of weakness. LTG Duration 10 wks (09/30/23) Two Impairment Decreased core strength and stability Impairment Pt limited in functional activities, especially motions including twisting. Short Term Goal (STG) Pt will be educated in movements and activities to avoid. 06/23/23: Pt educated in proper transfer sit<>supine and proper body mechanics. 06/27/23: Educated pt in proper transfer sit<>supine from L side of plinth and in proper body mechanics for her activities of ironing, mopping and vacumming floors. 06/27/23: Educated pt in positions and movements to avoid and educated in hip hinging for activities. STG Duration 6 wks (07/31/23) (06/23/23: MET GOAL) Filter Plant Operator Goal (LTG) Pt will be able to maintain core stability with MMT of lower extremities to demonstrate improved core stability and strength. LTG Duration 10 wks (09/30/23) One Impairment Pt lacks appropriate self care HEP. Short Term Goal (STG) Pt will be educated in log roll transfers, proper body mechanics for ADLs, proper sitting/standing posture. STG Duration 6 wks (07/31/23) (06/23/23: MET GOAL) Care Home Goal (LTG) Be placed on an exercise program of self care HEP for core strengthening, stabilization and mobility ex' s. 06/27/23: HEP: Neutral spine, LTG Duration 10 wks (09/30/23) Assessment Summary Assessment The pt is a 78 yo female who was seen for her initial eval 06/16/23, and 2 treatment visits before leaving for vacation for the 2 months and returns with worsening of her LB and hips. It appears she did not have a good understanding of her HEP ex's issued before she left on vacation and needed a through review. She was extremely slow in understanding and learning, but after much education in core tightening ex's she was finally able to show understanding of her HEP of progressive TA exercises. Now that the pt has no other plans of leaving the area I recommend the pt resume her rehabilitation program for mechanical and soft tissue dysfunction of her low back and sacrum. Initially she presented with bilateral Sciatic pain and +R PSLR, MRI showing moderate to severe disc desiccation of lumbar region. She has pain in bilateral hips and demonstrates demonstrates poor body mechanics with transfers. The pt would benefit from skilled physical therapy for pt education, Soft tissue mobilization (STM), therapeutic exercise and progression of a core stabilization program and proper body mechanics training , in order to improve her core stability, minimize pain and maximize function in above stated goals. Physical Therapy Plan Frequency and Duration Frequency of Treatment 2x/Week Duration of treatment (weeks) 10 Plan of Care Start Date 07/22/23 Plan of Care End Date 09/30/23 Therapeutic Interventions Therapeutic Interventions Home Exercise Program,Joint Mobilizations,Manual Therapy, Neuromuscular Re-education, Self-Care/Home Management,Soft Tissue Mobilization, Therapeutic Activities, Therapeutic Exercises Modalities Cold Pack/Ice Massage,Electric Stimulation,Hot Packs, Ultrasound Next Visit Focus/Plan Next Note Type Treatment Note Next Visit Plan 2x/wk for 10 weeks extended lumbar rehab due to holiday and vacation schedule. Review again core stab program progression. STM: Paraspinals Manual: Self mob for T/S, lumbar traction Ex's: Trunk (disc dessication) and hip mobility (note: + R PSLR), Core (abdominals)/hip strengthening. Education: Posture, body mechanics/ADLs, rest positioning. Manual: sacral balancing, occasional check for need of L /S traction due to disc dessication. Modalities: Cryotherapy/MH/US Plan of Care Dates Plan of Care Start Date 07/22/23 Plan of Care End Date 09/30/23 Electronically Signed by: Carly Austin, PT 07/22/23 [id number] If you are in agreement with this Plan of Care, please return a signed and dated copy. I have reviewed this Plan of Care and certify that the skilled therapy services above are required to meet the patient?s needs. Physician Signature Date Printed Name and Credentials Clinical Instructor Signature Printed Name and Credentials
--- NOTE | 2023-07-29 11:33 | PT.OTN ---
Current Diagnoses Other chronic pain (07/29/23) Spondylosis without myelopathy or radiculopathy, lumbar region (07/29/23) Other intervertebral disc degeneration, lumbar region (07/29/23) Radiculopathy, lumbar region (07/29/23) Low back pain, unspecified (07/29/23) Muscle weakness (generalized) (07/29/23) Physical Therapy Treatment Note PT-OP-A Visit Information Start: 06/02/23 18:16 Freq: Status: Active Protocol: Document 07/29/23 10:49 SP (Rec: 07/29/23 11:35 SP [id number]) Out-Patient Physical Therapy Visit Information Visit Information Visit Type Treatment Note Visit Start Time 10:49 Visit Stop Time 11:33 Total Visit Minutes 44 Visit Number 4 Number of INSURANCE LICENSING SUPERVISOR Visits 1 Evaluation Information Evaluation Date 06/16/23 Precautions Precautions LATEX ALLERGY, arthritis, thyroid disorder PT-OP-B Current Condition Start: 06/02/23 18:16 Freq: Status: Active Protocol: Document 06/16/23 12:33 LRN (Rec: 06/16/23 13:28 LRN [id number]) Current Condition History of Current Condition Onset Date Last year worsened after return to gym exer Current Complaints Back pain and R LE pain. History of Current Condition For 25 yrs has had back pain and R hip pain. Variable onset of bilateral leg pain that comes only on one side at a time. States the pain moves around. Walking, standing has worsened her back and shooting pain in R hip on lateral side into the top/ lateral foot. Pain with twisting, like wiping after a BM. Pt reports being referred to PT after imaging comparison to see if her back was worsening. Prior Treatments and Tests X-Ray report 03/23/23: Grade 1 retrolisthesis of L3 on L4 and L2 on L3. Moderate, multilevel degenerative disc disease (pt reported it showed arthritis, impinging on nerves and R hip bursitis). MRI report 03/30/23: Overall similar findings when compared with the MRI dated November 03, 2016 (moderate to severe disc dessication and height loss). There was slightly increased reactive endplate changes at L2-3. No significant canal stenosis or foraminal narrowing of the lumbar spine. Pt reports in/out of PT for years. Last time 10-12 yrs ago had PT and was on an ex program, but then moved and took care of grandson from 8 months old until 8 yrs old. Future Testing and Treatments Planned Next MD visit is after 2 PT treatment visits. Developmental History Developmental History In 1999, bent over into car to pick something up and couldn' t move and straighten up. Pt was living in [place] at the time and was told not to lift >20#. Now when she lifts a gallon of milk she has tightness in the low back that warns her not to lift more. Treatment Goals Patient/Caregiver Goals Pt goal: To learn what she should avoid doing, Be placed on an exercise program. How to keep from aggrevating the LB to avoid increased pain . Current Functional Impairments (Reported) Functional Limitations- ADL's Standing or walking 1 hr or less (causes compaction of spine). Sit for a long time. Sometimes was wakes with pain in the hips and generally sore in hips waking up in morning. Avoids twisting as much as she can. Functional Limitations- Other ........... Vacuming results in pain. Personal Factors Other Personal Factors That May Effect Pt spouse sometimes needs Therapy/Recovery physical assist with tasks, pt has 25 yr history of LBP. PT-OP-C Subjective Start: 06/02/23 18:16 Freq: Status: Active Protocol: Document 07/29/23 10:49 SP (Rec: 07/29/23 11:35 SP [id number]) OP-PT Subjective Patient Comments Patient Comments Pt reports thinks did her exercises to hard and back pain extending down her R leg down to R ankle (sometimes skips fischer). PT-OP-H Neuro Start: 06/02/23 18:16 Freq: Status: Active Protocol: Document 06/16/23 12:33 LRN (Rec: 06/16/23 13:28 LRN [id number]) Sensation Evaluation Gross Sensation Gross Sensation WNL PT-OP-J Posture/Palpation/Skin Start: 06/02/23 18:16 Freq: Status: Active Protocol: Document 06/16/23 12:33 LRN (Rec: 06/16/23 13:28 LRN [id number]) Posture Evaluation Position Standing T-Spine Posture Increased Kyphosis L-Spine Posture Decreased Lordosis,Shifted Left Scapula Posture (R) Depressed Pelvis Posture (R) Iliac Crest Superior Comments Posture Comments Mild increased lordosis, protruding abdomen Palpation Assessment Location Sacrum Palpation Location Sacrum Palpation Findings Tenderness Palpation Details Sacrum in extension. Hips Palpation Location Gluteals Palpation Details R Gluteals - atrophy L Gluteals - Ms tightness Low back Palpation Location Paraspinals, Interspinous spaces L1 through S1 Palpation Findings Muscle Guarding,Tenderness PT-OP-K Range of Motion Start: 06/02/23 18:16 Freq: Status: Active Protocol: Document 06/16/23 12:33 LRN (Rec: 06/16/23 13:28 LRN [id number]) Lumbar Spine Range of Motion Lumbar Spine Active Degrees Testing Position Standing Flexion 50 Extension 5 Rotation Left 20 Rotation Right 20 Lateral Flexion Left 7 Lateral Flexion Right 5 Comments Trunk AROM: Flexion is 50 deg ?s with 30 deg?s hip flexion, Trunk extension is 5 deg?s with 3 deg?s hip extension. Hip Goniometric Range of Motion Hip Right Passive Testing Position Supine Straight Leg Raise 75 Internal Rotation 30 External Rotation 65 Comments R hip pain with ER. Left Passive Testing Position Supine Straight Leg Raise 55 Internal Rotation 20 External Rotation 65 PT-OP-L Special Tests Start: 06/02/23 18:16 Freq: Status: Active Protocol: Document 06/16/23 12:33 LRN (Rec: 06/16/23 13:28 LRN [id number]) Special Tests Lumbar Spine Special Tests Straight Leg Raise Test Results + R LE: 75 deg's. L LE: 65 deg's. Comments RLE: Pain in R posterior thigh and hip PT-OP-M Strength Start: 06/02/23 18:16 Freq: Status: Active Protocol: Document 06/16/23 12:33 LRN (Rec: 06/16/23 13:28 LRN [id number]) Trunk Strength Trunk Manual Muscle Testing Core Stabilization Pt is unable to maintain core stability with LE MMT. Hip Strength Hip Manual Muscle Testing Right Flexion (L2) 3+ Fair+ Extension (S1) 5 Normal Abduction 4 Good Adduction 2 Poor External Rotation 5 Normal Internal Rotation 5 Normal Comments Pain with ER Left Flexion (L2) 3+ Fair+ Extension (S1) 3 Fair Abduction 3 Fair Adduction 1 Trace External Rotation 3 Fair Internal Rotation 5 Normal PT-OP-Q Treatments Start: 06/02/23 18:16 Freq: Status: Active Protocol: Document 07/29/23 10:49 SP (Rec: 07/29/23 11:35 SP [id number]) Therapeutic Exercises Supine Exercises LTR Supine Exercise Name showed/discussed, not performed Resistance * review next tx- give HO Reps/Minutes 5 reps each side Comments early am warm up mobility before get up Sciatic nerve glide Supine Exercise Name added for active HS mobiltiy w / AP Side bilateral Reps/Minutes x10 APs Comments good feedback stretch Piriformis stretch Supine Exercise Name reviewed past own stretch Side bilateral Resistance R>L Equipment Used opp LE straight Reps/Minutes 20 SH Comments good feedback stretch Fig 4 stretch Supine Exercise Name Reviewed past own stretch Side bilateral Resistance R>L Reps/Minutes 20SH Comments good feedback stretch NS/Heel slides Supine Exercise Name NS/ DL heels slides Side bilateral Equipment Used TA/ Multifidus/ neutral pelvis Reps/Minutes 3 reps x3 Comments cue TA, neutral pelvis, LE ROM can maintain TA- dbl feels moreeff vs single Neutral Spine(NS)/TA/Multifidus/PF Supine Exercise Name Neutral Spine(NS)/TA/ Multifidus/PF Reps/Minutes 5' Comments Req'd NS awareness training before ex; then cuing needed for all ms grps TA/PF tightening Supine Exercise Name TA/PF tightening Reps/Minutes 10 SH x10 Comments Cuing to tighten PF w/o arching back. TA tightening Supine Exercise Name TA tightening Resistance supine and standing Reps/Minutes 10 SH x10 Comments TA draw in. Neutral spine awareness Supine Exercise Name Neutral spine awareness training Reps/Minutes 4' Comments supine and standing Sidelying Exercises openbook Sidelying Exercise Name showed/discussed, not performed Resistance * review next tx- give HO Reps/Minutes 5 reps each side Comments early am warm up mobility before get up Sitting Exercises NS/TA/Multifidus/PF Sitting Exercise Name NS/TA/Multifidus/PF Reps/Minutes 20 SH x10 Self-Care/Home Management Treatment Education Patient Education Home Exercise Program,Posture Other Education TIme spent ed anatomy disc/ vertebra/ facet and structure for mobility posture/TA strength. Extr time spent feedback engagement TA, multifidi for HEP supine and standing for carryover. Short discussion or use pillow behind back for postural positioning. PT-OP-T Assessment and Plan Start: 06/02/23 18:16 Freq: Status: Active Protocol: Document 07/29/23 10:49 SP (Rec: 07/29/23 11:37 SP [id number]) Physical Therapy Assessment Goals Three Impairment Decreased hip strength Impairment R hip: Flex 3+/5, AB 4/5, AD 2/5, ER/IR 5/5. L hip: Flex 3+/5, AB & Ext 3 /5, AD 1/5, ER 3/5, IR 5/5 Short Term Goal (STG) Pt will be independent on a HEP of hip strengthening and mobility ex's. 07/29/23: added fig 4, piriformis stretch and sciatic nerve/active HS stretch R>L LE diminished radiating leg pain. STG Duration 5 wks (08/26/23) updated Digital Strategy Director Goal (LTG) Improve hip strength to 4-/5 or greater in areas of weakness. LTG Duration 10 wks (09/30/23) Two Impairment Decreased core strength and stability Impairment Pt limited in functional activities, especially motions including twisting. Short Term Goal (STG) Pt will be educated in movements and activities to avoid. 06/23/23: Pt educated in proper transfer sit<>supine and proper body mechanics. 06/27/23: Educated pt in proper transfer sit<>supine from L side of plinth and in proper body mechanics for her activities of ironing, mopping and vacumming floors. 06/27/23: Educated pt in positions and movements to avoid and educated in hip hinging for activities. STG Duration 6 wks (07/31/23) (06/23/23: MET GOAL) Digital Strategy Director Goal (LTG) Pt will be able to maintain core stability with MMT of lower extremities to demonstrate improved core stability and strength. LTG Duration 10 wks (09/30/23) One Impairment Pt lacks appropriate self care HEP. Short Term Goal (STG) Pt will be educated in log roll transfers, proper body mechanics for ADLs, proper sitting/standing posture. STG Duration 6 wks (07/31/23) (06/23/23: MET GOAL) Jail Goal (LTG) Be placed on an exercise program of self care HEP for core strengthening, stabilization and mobility ex' s. 06/27/23: HEP: Neutral spine 07/29/23: Reviewed HEP: TA/ multifidus and DL heel slides. LTG Duration 10 wks (09/30/23) updated Assessment Summary Assessment Pt improved self corrections for maintaining TA, neutral pelvis and multifidi HEP review this tx. Added fig 4, piriformis and sciatic nerve glide this tx for R hip flexibility ROM with reports made R hip pain down leg go away by end of tx. Physical Therapy Plan Frequency and Duration Frequency of Treatment 2x/Week Duration of treatment (weeks) 10 Plan of Care Start Date 07/22/23 Plan of Care End Date 09/30/23 Therapeutic Interventions Therapeutic Interventions Home Exercise Program,Joint Mobilizations,Manual Therapy, Neuromuscular Re-education, Self-Care/Home Management,Soft Tissue Mobilization, Therapeutic Activities, Therapeutic Exercises Modalities Cold Pack/Ice Massage,Electric Stimulation,Hot Packs, Ultrasound Next Visit Focus/Plan Next Note Type Treatment Note Next Visit Plan 2x/wk for 10 weeks extended lumbar rehab due to holiday and vacation schedule. Check response stretch, add TA sit/ stands, ball wall, check LTR/ open book give HOs if needed. Review again core stab program progression. STM: Paraspinals Manual: Self mob for T/S, lumbar traction Ex's: Trunk (disc dessication) and hip mobility (note: + R PSLR), Core (abdominals)/hip strengthening. Education: Posture, body mechanics/ADLs, rest positioning. Manual: sacral balancing, occasional check for need of L /S traction due to disc dessication. Modalities: Cryotherapy/MH/US
--- NOTE | 2023-08-02 12:45 | PT.OTN ---
Current Diagnoses Other chronic pain (08/02/23) Spondylosis without myelopathy or radiculopathy, lumbar region (08/02/23) Other intervertebral disc degeneration, lumbar region (08/02/23) Radiculopathy, lumbar region (08/02/23) Low back pain, unspecified (08/02/23) Muscle weakness (generalized) (08/02/23) Physical Therapy Treatment Note PT-OP-A Visit Information Start: 06/02/23 18:16 Freq: Status: Active Protocol: Document 08/02/23 12:01 SP (Rec: 08/02/23 12:47 SP [id number]) Out-Patient Physical Therapy Visit Information Visit Information Visit Type Treatment Note Visit Start Time 12:01 Visit Stop Time 12:45 Total Visit Minutes 44 Visit Number 5 Number of PROPERTY CARETAKER Visits 2 Evaluation Information Evaluation Date 06/16/23 Precautions Precautions LATEX ALLERGY, arthritis, thyroid disorder PT-OP-B Current Condition Start: 06/02/23 18:16 Freq: Status: Active Protocol: Document 06/16/23 12:33 LRN (Rec: 06/16/23 13:28 LRN [id number]) Current Condition History of Current Condition Onset Date Last year worsened after return to gym exer Current Complaints Back pain and R LE pain. History of Current Condition For 25 yrs has had back pain and R hip pain. Variable onset of bilateral leg pain that comes only on one side at a time. States the pain moves around. Walking, standing has worsened her back and shooting pain in R hip on lateral side into the top/ lateral foot. Pain with twisting, like wiping after a BM. Pt reports being referred to PT after imaging comparison to see if her back was worsening. Prior Treatments and Tests X-Ray report 03/23/23: Grade 1 retrolisthesis of L3 on L4 and L2 on L3. Moderate, multilevel degenerative disc disease (pt reported it showed arthritis, impinging on nerves and R hip bursitis). MRI report 03/30/23: Overall similar findings when compared with the MRI dated November 03, 2016 (moderate to severe disc dessication and height loss). There was slightly increased reactive endplate changes at L2-3. No significant canal stenosis or foraminal narrowing of the lumbar spine. Pt reports in/out of PT for years. Last time 10-12 yrs ago had PT and was on an ex program, but then moved and took care of grandson from 8 months old until 8 yrs old. Future Testing and Treatments Planned Next MD visit is after 2 PT treatment visits. Developmental History Developmental History In 1999, bent over into car to pick something up and couldn' t move and straighten up. Pt was living in [place] at the time and was told not to lift >20#. Now when she lifts a gallon of milk she has tightness in the low back that warns her not to lift more. Treatment Goals Patient/Caregiver Goals Pt goal: To learn what she should avoid doing, Be placed on an exercise program. How to keep from aggrevating the LB to avoid increased pain . Current Functional Impairments (Reported) Functional Limitations- ADL's Standing or walking 1 hr or less (causes compaction of spine). Sit for a long time. Sometimes was wakes with pain in the hips and generally sore in hips waking up in morning. Avoids twisting as much as she can. Functional Limitations- Other ........... Vacuming results in pain. Personal Factors Other Personal Factors That May Effect Pt spouse sometimes needs Therapy/Recovery physical assist with tasks, pt has 25 yr history of LBP. PT-OP-C Subjective Start: 06/02/23 18:16 Freq: Status: Active Protocol: Document 08/02/23 12:01 SP (Rec: 08/02/23 12:47 SP [id number]) OP-PT Subjective Patient Comments Patient Comments Pt reported young grandson was in town so didn't get many exercises done. She reported walked around [place] and had her L low back tweek and now when performs TA back flatening and wiping causes more pain. She reports when focuses on posture, helps reduce back tension sitting in chair. PT-OP-H Neuro Start: 06/02/23 18:16 Freq: Status: Active Protocol: Document 06/16/23 12:33 LRN (Rec: 06/16/23 13:28 LRN [id number]) Sensation Evaluation Gross Sensation Gross Sensation WNL PT-OP-J Posture/Palpation/Skin Start: 06/02/23 18:16 Freq: Status: Active Protocol: Document 06/16/23 12:33 LRN (Rec: 06/16/23 13:28 LRN [id number]) Posture Evaluation Position Standing T-Spine Posture Increased Kyphosis L-Spine Posture Decreased Lordosis,Shifted Left Scapula Posture (R) Depressed Pelvis Posture (R) Iliac Crest Superior Comments Posture Comments Mild increased lordosis, protruding abdomen Palpation Assessment Location Sacrum Palpation Location Sacrum Palpation Findings Tenderness Palpation Details Sacrum in extension. Hips Palpation Location Gluteals Palpation Details R Gluteals - atrophy L Gluteals - Ms tightness Low back Palpation Location Paraspinals, Interspinous spaces L1 through S1 Palpation Findings Muscle Guarding,Tenderness PT-OP-K Range of Motion Start: 06/02/23 18:16 Freq: Status: Active Protocol: Document 06/16/23 12:33 LRN (Rec: 06/16/23 13:28 LRN [id number]) Lumbar Spine Range of Motion Lumbar Spine Active Degrees Testing Position Standing Flexion 50 Extension 5 Rotation Left 20 Rotation Right 20 Lateral Flexion Left 7 Lateral Flexion Right 5 Comments Trunk AROM: Flexion is 50 deg ?s with 30 deg?s hip flexion, Trunk extension is 5 deg?s with 3 deg?s hip extension. Hip Goniometric Range of Motion Hip Right Passive Testing Position Supine Straight Leg Raise 75 Internal Rotation 30 External Rotation 65 Comments R hip pain with ER. Left Passive Testing Position Supine Straight Leg Raise 55 Internal Rotation 20 External Rotation 65 PT-OP-L Special Tests Start: 06/02/23 18:16 Freq: Status: Active Protocol: Document 06/16/23 12:33 LRN (Rec: 06/16/23 13:28 LRN [id number]) Special Tests Lumbar Spine Special Tests Straight Leg Raise Test Results + R LE: 75 deg's. L LE: 65 deg's. Comments RLE: Pain in R posterior thigh and hip PT-OP-M Strength Start: 06/02/23 18:16 Freq: Status: Active Protocol: Document 06/16/23 12:33 LRN (Rec: 06/16/23 13:28 LRN [id number]) Trunk Strength Trunk Manual Muscle Testing Core Stabilization Pt is unable to maintain core stability with LE MMT. Hip Strength Hip Manual Muscle Testing Right Flexion (L2) 3+ Fair+ Extension (S1) 5 Normal Abduction 4 Good Adduction 2 Poor External Rotation 5 Normal Internal Rotation 5 Normal Comments Pain with ER Left Flexion (L2) 3+ Fair+ Extension (S1) 3 Fair Abduction 3 Fair Adduction 1 Trace External Rotation 3 Fair Internal Rotation 5 Normal PT-OP-Q Treatments Start: 06/02/23 18:16 Freq: Status: Active Protocol: Document 08/02/23 12:01 SP (Rec: 08/02/23 12:47 SP [id number]) Therapeutic Exercises Supine Exercises TA/braced bridge Supine Exercise Name added to HEP Reps/Minutes 3 SH x8 reps Comments cued TA&multifidus fac LTR Supine Exercise Name reviewed added last tx to HEP Side bilateral Reps/Minutes 5 reps each side Comments early am warm up mobility before get up Sciatic nerve glide Supine Exercise Name reviewed active HS mobiltiy w/ AP Side bilateral Reps/Minutes x10 APs Comments good feedback stretch to low back Neutral Spine(NS)/TA/Multifidus/PF Supine Exercise Name Neutral Spine(NS)/TA/ Multifidus/PF Reps/Minutes 2x8 reps Comments alternating LE ext/heel slide TA/PF tightening Supine Exercise Name TA/PF tightening Reps/Minutes 10 SH x10 Comments Cuing to tighten PF w/o arching back. Standing Exercises shoulder extension Standing Exercise Name added HEP Side bilateral Resistance orange TB Reps/Minutes x10 reps Comments cued neutral pelvis, elbow extension, pull back to side leg- good core/rho Other Exercises bird dog Other Exercise Name UE/ LE ext- (added/ review past self HEP) Side bilateral Reps/Minutes x 5 reps each side Comments occasional cue L hip depress level pelvis quadruped Other Exercise Name 1. cat camel 2. child's pose ( added/ review past self HEP) Reps/Minutes 1. x8- reps 2. 2 x30 sec Comments improved decrease LB tension reported PT-OP-T Assessment and Plan Start: 06/02/23 18:16 Freq: Status: Active Protocol: Document 08/02/23 12:01 SP (Rec: 08/02/23 12:47 SP [id number]) Physical Therapy Assessment Goals Three Impairment Decreased hip strength Impairment R hip: Flex 3+/5, AB 4/5, AD 2/5, ER/IR 5/5. L hip: Flex 3+/5, AB & Ext 3 /5, AD 1/5, ER 3/5, IR 5/5 Short Term Goal (STG) Pt will be independent on a HEP of hip strengthening and mobility ex's. 07/29/23: added fig 4, piriformis stretch and sciatic nerve/active HS stretch R>L LE diminished radiating leg pain. STG Duration 5 wks (08/26/23) updated Platform Worker Goal (LTG) Improve hip strength to 4-/5 or greater in areas of weakness. LTG Duration 10 wks (09/30/23) Two Impairment Decreased core strength and stability Impairment Pt limited in functional activities, especially motions including twisting. Short Term Goal (STG) Pt will be educated in movements and activities to avoid. 06/23/23: Pt educated in proper transfer sit<>supine and proper body mechanics. 06/27/23: Educated pt in proper transfer sit<>supine from L side of plinth and in proper body mechanics for her activities of ironing, mopping and vacumming floors. 06/27/23: Educated pt in positions and movements to avoid and educated in hip hinging for activities. STG Duration 6 wks (07/31/23) (06/23/23: MET GOAL) Platform Worker Goal (LTG) Pt will be able to maintain core stability with MMT of lower extremities to demonstrate improved core stability and strength. LTG Duration 10 wks (09/30/23) One Impairment Pt lacks appropriate self care HEP. Short Term Goal (STG) Pt will be educated in log roll transfers, proper body mechanics for ADLs, proper sitting/standing posture. STG Duration 6 wks (07/31/23) (06/23/23: MET GOAL) [facility] Goal (LTG) Be placed on an exercise program of self care HEP for core strengthening, stabilization and mobility ex' s. 06/27/23: HEP: Neutral spine 07/29/23: Reviewed HEP: TA/ multifidus and DL heel slides. 08/02/23: added/reviewed a self quadruped stretching cat/ camel and child's pose and UE/ LE ext. Added resisted shld ext with core fac reported. LTG Duration 10 wks (09/30/23) updated 08/02 Assessment Summary Assessment Pt improved TA and multifidus facilitation during today's HEP review. Pt responded well to added from previous self exercise program for continue at home quadruped UE/ LE ext cued for chin tuck and lower L pelvis slightly but no report pain performing. Pt reports back feels better and less Physical Therapy Plan Frequency and Duration Frequency of Treatment 2x/Week Duration of treatment (weeks) 10 Plan of Care Start Date 07/22/23 Plan of Care End Date 09/30/23 Therapeutic Interventions Therapeutic Interventions Home Exercise Program,Joint Mobilizations,Manual Therapy, Neuromuscular Re-education, Self-Care/Home Management,Soft Tissue Mobilization, Therapeutic Activities, Therapeutic Exercises Modalities Cold Pack/Ice Massage,Electric Stimulation,Hot Packs, Ultrasound Next Visit Focus/Plan Next Note Type Treatment Note Next Visit Plan Update goal feedback next appt . 2x/wk for 10 weeks extended lumbar rehab due to holiday and vacation schedule. Check response stretch, add TA sit/ stands and body mechanics with lifting item and chores. STM: Paraspinals Manual: Self mob for T/S, lumbar traction Ex's: Trunk (disc dessication) and hip mobility (note: + R PSLR), Core (abdominals)/hip strengthening. Education: Posture, body mechanics/ADLs, rest positioning. Manual: sacral balancing, occasional check for need of L /S traction due to disc dessication. Modalities: Cryotherapy/MH/US
--- NOTE | 2023-08-03 12:45 | PT.OTN ---
Current Diagnoses Other chronic pain (08/02/23) Spondylosis without myelopathy or radiculopathy, lumbar region (08/02/23) Other intervertebral disc degeneration, lumbar region (08/02/23) Radiculopathy, lumbar region (08/02/23) Low back pain, unspecified (08/02/23) Muscle weakness (generalized) (08/02/23) Physical Therapy Treatment Note PT-OP-A Visit Information Start: 06/02/23 18:16 Freq: Status: Active Protocol: Document 08/02/23 12:01 SP (Rec: 08/02/23 12:47 SP [id number]) Out-Patient Physical Therapy Visit Information Visit Information Visit Type Treatment Note Visit Start Time 12:01 Visit Stop Time 12:45 Total Visit Minutes 44 Visit Number 5 Number of SIGNALER Visits 2 Evaluation Information Evaluation Date 06/16/23 Precautions Precautions LATEX ALLERGY, arthritis, thyroid disorder PT-OP-B Current Condition Start: 06/02/23 18:16 Freq: Status: Active Protocol: Document 06/16/23 12:33 LRN (Rec: 06/16/23 13:28 LRN [id number]) Current Condition History of Current Condition Onset Date Last year worsened after return to gym exer Current Complaints Back pain and R LE pain. History of Current Condition For 25 yrs has had back pain and R hip pain. Variable onset of bilateral leg pain that comes only on one side at a time. States the pain moves around. Walking, standing has worsened her back and shooting pain in R hip on lateral side into the top/ lateral foot. Pain with twisting, like wiping after a BM. Pt reports being referred to PT after imaging comparison to see if her back was worsening. Prior Treatments and Tests X-Ray report 03/23/23: Grade 1 retrolisthesis of L3 on L4 and L2 on L3. Moderate, multilevel degenerative disc disease (pt reported it showed arthritis, impinging on nerves and R hip bursitis). MRI report 03/30/23: Overall similar findings when compared with the MRI dated November 03, 2016 (moderate to severe disc dessication and height loss). There was slightly increased reactive endplate changes at L2-3. No significant canal stenosis or foraminal narrowing of the lumbar spine. Pt reports in/out of PT for years. Last time 10-12 yrs ago had PT and was on an ex program, but then moved and took care of grandson from 8 months old until 8 yrs old. Future Testing and Treatments Planned Next MD visit is after 2 PT treatment visits. Developmental History Developmental History In 1999, bent over into car to pick something up and couldn' t move and straighten up. Pt was living in [place] at the time and was told not to lift >20#. Now when she lifts a gallon of milk she has tightness in the low back that warns her not to lift more. Treatment Goals Patient/Caregiver Goals Pt goal: To learn what she should avoid doing, Be placed on an exercise program. How to keep from aggrevating the LB to avoid increased pain . Current Functional Impairments (Reported) Functional Limitations- ADL's Standing or walking 1 hr or less (causes compaction of spine). Sit for a long time. Sometimes was wakes with pain in the hips and generally sore in hips waking up in morning. Avoids twisting as much as she can. Functional Limitations- Other ........... Vacuming results in pain. Personal Factors Other Personal Factors That May Effect Pt spouse sometimes needs Therapy/Recovery physical assist with tasks, pt has 25 yr history of LBP. PT-OP-C Subjective Start: 06/02/23 18:16 Freq: Status: Active Protocol: Document 08/02/23 12:01 SP (Rec: 08/02/23 12:47 SP [id number]) OP-PT Subjective Patient Comments Patient Comments Pt reported young grandson was in town so didn't get many exercises done. She reported walked around [place] and had her L low back tweek and now when performs TA back flatening and wiping causes more pain. She reports when focuses on posture, helps reduce back tension sitting in chair. PT-OP-H Neuro Start: 06/02/23 18:16 Freq: Status: Active Protocol: Document 06/16/23 12:33 LRN (Rec: 06/16/23 13:28 LRN [id number]) Sensation Evaluation Gross Sensation Gross Sensation WNL PT-OP-J Posture/Palpation/Skin Start: 06/02/23 18:16 Freq: Status: Active Protocol: Document 06/16/23 12:33 LRN (Rec: 06/16/23 13:28 LRN [id number]) Posture Evaluation Position Standing T-Spine Posture Increased Kyphosis L-Spine Posture Decreased Lordosis,Shifted Left Scapula Posture (R) Depressed Pelvis Posture (R) Iliac Crest Superior Comments Posture Comments Mild increased lordosis, protruding abdomen Palpation Assessment Location Sacrum Palpation Location Sacrum Palpation Findings Tenderness Palpation Details Sacrum in extension. Hips Palpation Location Gluteals Palpation Details R Gluteals - atrophy L Gluteals - Ms tightness Low back Palpation Location Paraspinals, Interspinous spaces L1 through S1 Palpation Findings Muscle Guarding,Tenderness PT-OP-K Range of Motion Start: 06/02/23 18:16 Freq: Status: Active Protocol: Document 06/16/23 12:33 LRN (Rec: 06/16/23 13:28 LRN [id number]) Lumbar Spine Range of Motion Lumbar Spine Active Degrees Testing Position Standing Flexion 50 Extension 5 Rotation Left 20 Rotation Right 20 Lateral Flexion Left 7 Lateral Flexion Right 5 Comments Trunk AROM: Flexion is 50 deg ?s with 30 deg?s hip flexion, Trunk extension is 5 deg?s with 3 deg?s hip extension. Hip Goniometric Range of Motion Hip Right Passive Testing Position Supine Straight Leg Raise 75 Internal Rotation 30 External Rotation 65 Comments R hip pain with ER. Left Passive Testing Position Supine Straight Leg Raise 55 Internal Rotation 20 External Rotation 65 PT-OP-L Special Tests Start: 06/02/23 18:16 Freq: Status: Active Protocol: Document 06/16/23 12:33 LRN (Rec: 06/16/23 13:28 LRN [id number]) Special Tests Lumbar Spine Special Tests Straight Leg Raise Test Results + R LE: 75 deg's. L LE: 65 deg's. Comments RLE: Pain in R posterior thigh and hip PT-OP-M Strength Start: 06/02/23 18:16 Freq: Status: Active Protocol: Document 06/16/23 12:33 LRN (Rec: 06/16/23 13:28 LRN [id number]) Trunk Strength Trunk Manual Muscle Testing Core Stabilization Pt is unable to maintain core stability with LE MMT. Hip Strength Hip Manual Muscle Testing Right Flexion (L2) 3+ Fair+ Extension (S1) 5 Normal Abduction 4 Good Adduction 2 Poor External Rotation 5 Normal Internal Rotation 5 Normal Comments Pain with ER Left Flexion (L2) 3+ Fair+ Extension (S1) 3 Fair Abduction 3 Fair Adduction 1 Trace External Rotation 3 Fair Internal Rotation 5 Normal PT-OP-Q Treatments Start: 06/02/23 18:16 Freq: Status: Active Protocol: Document 08/02/23 12:01 SP (Rec: 08/02/23 12:47 SP [id number]) Therapeutic Exercises Supine Exercises TA/braced bridge Supine Exercise Name added to HEP Reps/Minutes 3 SH x8 reps Comments cued TA&multifidus fac LTR Supine Exercise Name reviewed added last tx to HEP Side bilateral Reps/Minutes 5 reps each side Comments early am warm up mobility before get up Sciatic nerve glide Supine Exercise Name reviewed active HS mobiltiy w/ AP Side bilateral Reps/Minutes x10 APs Comments good feedback stretch to low back Neutral Spine(NS)/TA/Multifidus/PF Supine Exercise Name Neutral Spine(NS)/TA/ Multifidus/PF Reps/Minutes 2x8 reps Comments alternating LE ext/heel slide TA/PF tightening Supine Exercise Name TA/PF tightening Reps/Minutes 10 SH x10 Comments Cuing to tighten PF w/o arching back. Standing Exercises shoulder extension Standing Exercise Name added HEP Side bilateral Resistance orange TB Reps/Minutes x10 reps Comments cued neutral pelvis, elbow extension, pull back to side leg- good core/rho Other Exercises bird dog Other Exercise Name UE/ LE ext- (added/ review past self HEP) Side bilateral Reps/Minutes x 5 reps each side Comments occasional cue L hip depress level pelvis quadruped Other Exercise Name 1. cat camel 2. child's pose ( added/ review past self HEP) Reps/Minutes 1. x8- reps 2. 2 x30 sec Comments improved decrease LB tension reported PT-OP-T Assessment and Plan Start: 06/02/23 18:16 Freq: Status: Active Protocol: Document 08/02/23 12:01 SP (Rec: 08/02/23 12:47 SP [id number]) Physical Therapy Assessment Goals Three Impairment Decreased hip strength Impairment R hip: Flex 3+/5, AB 4/5, AD 2/5, ER/IR 5/5. L hip: Flex 3+/5, AB & Ext 3 /5, AD 1/5, ER 3/5, IR 5/5 Short Term Goal (STG) Pt will be independent on a HEP of hip strengthening and mobility ex's. 07/29/23: added fig 4, piriformis stretch and sciatic nerve/active HS stretch R>L LE diminished radiating leg pain. STG Duration 5 wks (08/26/23) updated Grain Elevator Clerk Goal (LTG) Improve hip strength to 4-/5 or greater in areas of weakness. LTG Duration 10 wks (09/30/23) Two Impairment Decreased core strength and stability Impairment Pt limited in functional activities, especially motions including twisting. Short Term Goal (STG) Pt will be educated in movements and activities to avoid. 06/23/23: Pt educated in proper transfer sit<>supine and proper body mechanics. 06/27/23: Educated pt in proper transfer sit<>supine from L side of plinth and in proper body mechanics for her activities of ironing, mopping and vacumming floors. 06/27/23: Educated pt in positions and movements to avoid and educated in hip hinging for activities. STG Duration 6 wks (07/31/23) (06/23/23: MET GOAL) Grain Elevator Clerk Goal (LTG) Pt will be able to maintain core stability with MMT of lower extremities to demonstrate improved core stability and strength. LTG Duration 10 wks (09/30/23) One Impairment Pt lacks appropriate self care HEP. Short Term Goal (STG) Pt will be educated in log roll transfers, proper body mechanics for ADLs, proper sitting/standing posture. STG Duration 6 wks (07/31/23) (06/23/23: MET GOAL) [facility] Goal (LTG) Be placed on an exercise program of self care HEP for core strengthening, stabilization and mobility ex' s. 06/27/23: HEP: Neutral spine 07/29/23: Reviewed HEP: TA/ multifidus and DL heel slides. 08/02/23: added/reviewed a self quadruped stretching cat/ camel and child's pose and UE/ LE ext. Added resisted shld ext with core fac reported. LTG Duration 10 wks (09/30/23) updated 08/02 Assessment Summary Assessment Pt improved TA and multifidus facilitation during today's HEP review. Pt responded well to added from previous self exercise program for continue at home quadruped UE/ LE ext cued for chin tuck and lower L pelvis slightly but no report pain performing. Pt reports back feels better and less Physical Therapy Plan Frequency and Duration Frequency of Treatment 2x/Week Duration of treatment (weeks) 10 Plan of Care Start Date 07/22/23 Plan of Care End Date 09/30/23 Therapeutic Interventions Therapeutic Interventions Home Exercise Program,Joint Mobilizations,Manual Therapy, Neuromuscular Re-education, Self-Care/Home Management,Soft Tissue Mobilization, Therapeutic Activities, Therapeutic Exercises Modalities Cold Pack/Ice Massage,Electric Stimulation,Hot Packs, Ultrasound Next Visit Focus/Plan Next Note Type Treatment Note Next Visit Plan Update goal feedback next appt . 2x/wk for 10 weeks extended lumbar rehab due to holiday and vacation schedule. Check response stretch, add TA sit/ stands and body mechanics with lifting item and chores. STM: Paraspinals Manual: Self mob for T/S, lumbar traction Ex's: Trunk (disc dessication) and hip mobility (note: + R PSLR), Core (abdominals)/hip strengthening. Education: Posture, body mechanics/ADLs, rest positioning. Manual: sacral balancing, occasional check for need of L /S traction due to disc dessication. Modalities: Cryotherapy/MH/US
--- NOTE | 2023-08-05 11:33 | PT.OTN ---
Current Diagnoses Other chronic pain (08/05/23) Spondylosis without myelopathy or radiculopathy, lumbar region (08/05/23) Other intervertebral disc degeneration, lumbar region (08/05/23) Radiculopathy, lumbar region (08/05/23) Low back pain, unspecified (08/05/23) Muscle weakness (generalized) (08/05/23) Physical Therapy Treatment Note PT-OP-A Visit Information Start: 06/02/23 18:16 Freq: Status: Active Protocol: Document 08/05/23 10:49 SP (Rec: 08/05/23 11:45 SP [id number]) Out-Patient Physical Therapy Visit Information Visit Information Visit Type Treatment Note Visit Start Time 10:49 Visit Stop Time 11:33 Total Visit Minutes 44 Visit Number 6 Number of STRUCTURED CABLING TECHNICIAN Visits 3 Evaluation Information Evaluation Date 06/16/23 Precautions Precautions LATEX ALLERGY, arthritis, thyroid disorder PT-OP-B Current Condition Start: 06/02/23 18:16 Freq: Status: Active Protocol: Document 06/16/23 12:33 LRN (Rec: 06/16/23 13:28 LRN [id number]) Current Condition History of Current Condition Onset Date Last year worsened after return to gym exer Current Complaints Back pain and R LE pain. History of Current Condition For 25 yrs has had back pain and R hip pain. Variable onset of bilateral leg pain that comes only on one side at a time. States the pain moves around. Walking, standing has worsened her back and shooting pain in R hip on lateral side into the top/ lateral foot. Pain with twisting, like wiping after a BM. Pt reports being referred to PT after imaging comparison to see if her back was worsening. Prior Treatments and Tests X-Ray report 03/23/23: Grade 1 retrolisthesis of L3 on L4 and L2 on L3. Moderate, multilevel degenerative disc disease (pt reported it showed arthritis, impinging on nerves and R hip bursitis). MRI report 03/30/23: Overall similar findings when compared with the MRI dated November 03, 2016 (moderate to severe disc dessication and height loss). There was slightly increased reactive endplate changes at L2-3. No significant canal stenosis or foraminal narrowing of the lumbar spine. Pt reports in/out of PT for years. Last time 10-12 yrs ago had PT and was on an ex program, but then moved and took care of grandson from 8 months old until 8 yrs old. Future Testing and Treatments Planned Next MD visit is after 2 PT treatment visits. Developmental History Developmental History In 1999, bent over into car to pick something up and couldn' t move and straighten up. Pt was living in [place] at the time and was told not to lift >20#. Now when she lifts a gallon of milk she has tightness in the low back that warns her not to lift more. Treatment Goals Patient/Caregiver Goals Pt goal: To learn what she should avoid doing, Be placed on an exercise program. How to keep from aggrevating the LB to avoid increased pain . Current Functional Impairments (Reported) Functional Limitations- ADL's Standing or walking 1 hr or less (causes compaction of spine). Sit for a long time. Sometimes was wakes with pain in the hips and generally sore in hips waking up in morning. Avoids twisting as much as she can. Functional Limitations- Other ........... Vacuming results in pain. Personal Factors Other Personal Factors That May Effect Pt spouse sometimes needs Therapy/Recovery physical assist with tasks, pt has 25 yr history of LBP. PT-OP-C Subjective Start: 06/02/23 18:16 Freq: Status: Active Protocol: Document 08/05/23 10:49 SP (Rec: 08/05/23 11:45 SP [id number]) OP-PT Subjective Patient Comments Patient Comments Pt reports still has dull ache in L low back that always lives there, performed bridge a couple times since last tx but most recent one of last reps after already completed ex felt a twinge and increased her pain so stopped. PT-OP-H Neuro Start: 06/02/23 18:16 Freq: Status: Active Protocol: Document 06/16/23 12:33 LRN (Rec: 06/16/23 13:28 LRN [id number]) Sensation Evaluation Gross Sensation Gross Sensation WNL PT-OP-J Posture/Palpation/Skin Start: 06/02/23 18:16 Freq: Status: Active Protocol: Document 06/16/23 12:33 LRN (Rec: 06/16/23 13:28 LRN [id number]) Posture Evaluation Position Standing T-Spine Posture Increased Kyphosis L-Spine Posture Decreased Lordosis,Shifted Left Scapula Posture (R) Depressed Pelvis Posture (R) Iliac Crest Superior Comments Posture Comments Mild increased lordosis, protruding abdomen Palpation Assessment Location Sacrum Palpation Location Sacrum Palpation Findings Tenderness Palpation Details Sacrum in extension. Hips Palpation Location Gluteals Palpation Details R Gluteals - atrophy L Gluteals - Ms tightness Low back Palpation Location Paraspinals, Interspinous spaces L1 through S1 Palpation Findings Muscle Guarding,Tenderness PT-OP-K Range of Motion Start: 06/02/23 18:16 Freq: Status: Active Protocol: Document 06/16/23 12:33 LRN (Rec: 06/16/23 13:28 LRN [id number]) Lumbar Spine Range of Motion Lumbar Spine Active Degrees Testing Position Standing Flexion 50 Extension 5 Rotation Left 20 Rotation Right 20 Lateral Flexion Left 7 Lateral Flexion Right 5 Comments Trunk AROM: Flexion is 50 deg ?s with 30 deg?s hip flexion, Trunk extension is 5 deg?s with 3 deg?s hip extension. Hip Goniometric Range of Motion Hip Right Passive Testing Position Supine Straight Leg Raise 75 Internal Rotation 30 External Rotation 65 Comments R hip pain with ER. Left Passive Testing Position Supine Straight Leg Raise 55 Internal Rotation 20 External Rotation 65 PT-OP-L Special Tests Start: 06/02/23 18:16 Freq: Status: Active Protocol: Document 06/16/23 12:33 LRN (Rec: 06/16/23 13:28 LRN [id number]) Special Tests Lumbar Spine Special Tests Straight Leg Raise Test Results + R LE: 75 deg's. L LE: 65 deg's. Comments RLE: Pain in R posterior thigh and hip PT-OP-M Strength Start: 06/02/23 18:16 Freq: Status: Active Protocol: Document 06/16/23 12:33 LRN (Rec: 06/16/23 13:28 LRN [id number]) Trunk Strength Trunk Manual Muscle Testing Core Stabilization Pt is unable to maintain core stability with LE MMT. Hip Strength Hip Manual Muscle Testing Right Flexion (L2) 3+ Fair+ Extension (S1) 5 Normal Abduction 4 Good Adduction 2 Poor External Rotation 5 Normal Internal Rotation 5 Normal Comments Pain with ER Left Flexion (L2) 3+ Fair+ Extension (S1) 3 Fair Abduction 3 Fair Adduction 1 Trace External Rotation 3 Fair Internal Rotation 5 Normal PT-OP-Q Treatments Start: 06/02/23 18:16 Freq: Status: Active Protocol: Document 08/05/23 10:49 SP (Rec: 08/05/23 11:45 SP [id number]) Therapeutic Exercises Supine Exercises TA/braced bridge Supine Exercise Name reviewed HEP Reps/Minutes 3 SH x8 reps Comments cued TA&multifidus fac- good response LTR Supine Exercise Name reviewed Side bilateral Reps/Minutes 5 reps each side, 2 breath hold Comments reports discomfort L SI area Sciatic nerve glide Supine Exercise Name reviewed active HS mobiltiy w/ AP Side bilateral Reps/Minutes x10 APs Comments good feedback stretch to low back Piriformis stretch Supine Exercise Name reviewed past own stretch Side bilateral Resistance R>L Equipment Used opp LE straight Reps/Minutes 20 SH Comments good feedback stretch Fig 4 stretch Supine Exercise Name Reviewed past own stretch Side bilateral Resistance R>L Reps/Minutes 20SH Comments good feedback stretch Standing Exercises shoulder extension Standing Exercise Name reviewed HEP Side bilateral Resistance orange TB Reps/Minutes x10 reps Comments cued neutral pelvis, elbow extension, pull back to side leg- good core/rho Manual Therapy Treatment Soft Tissue Mobilization L LS Body Location QL, ES, Glut superior to ilium Mobilization Type Strumming Intensity/Depth Moderate Body Position Sidelying Comments manual Manual Traction Lumbar Details B Long axis LE pull Body Position Hooklying Comments reports decrease back/ hip tension Self-Care/Home Management Treatment Activities Self-Care/Home Management Activities Time spent body mechanics lifting groceries (basked 5-10 #) close to body, hip hinge into car and push in further vs reach in further. Wt shift between BLEs during vacuuming/ sweeping, good feedback response with improve back alignment. PT-OP-T Assessment and Plan Start: 06/02/23 18:16 Freq: Status: Active Protocol: Document 08/05/23 10:49 SP (Rec: 08/05/23 11:45 SP [id number]) Physical Therapy Assessment Goals Three Impairment Decreased hip strength Impairment R hip: Flex 3+/5, AB 4/5, AD 2/5, ER/IR 5/5. L hip: Flex 3+/5, AB & Ext 3 /5, AD 1/5, ER 3/5, IR 5/5 Short Term Goal (STG) Pt will be independent on a HEP of hip strengthening and mobility ex's. 07/29/23: added fig 4, piriformis stretch and sciatic nerve/active HS stretch R>L LE diminished radiating leg pain. 08/05/23: reviewed added last tx: LTR, piriformis, LE neural glides w/ AP with good response STG Duration 5 wks (08/26/23) updated Special Agent [employer] Goal (LTG) Improve hip strength to 4-/5 or greater in areas of weakness. LTG Duration 10 wks (09/30/23) Two Impairment Decreased core strength and stability Impairment Pt limited in functional activities, especially motions including twisting. Short Term Goal (STG) Pt will be educated in movements and activities to avoid. 06/23/23: Pt educated in proper transfer sit<>supine and proper body mechanics. 06/27/23: Educated pt in proper transfer sit<>supine from L side of plinth and in proper body mechanics for her activities of ironing, mopping and vacumming floors. 06/27/23: Educated pt in positions and movements to avoid and educated in hip hinging for activities. STG Duration 6 wks (07/31/23) (06/23/23: MET GOAL) Snf Goal (LTG) Pt will be able to maintain core stability with MMT of lower extremities to demonstrate improved core stability and strength. 08/05/23: REviewed added TA& Multifidus bridge- painfree today. LTG Duration 10 wks (09/30/23) progressing 08/05/23 One Impairment Pt lacks appropriate self care HEP. Short Term Goal (STG) Pt will be educated in log roll transfers, proper body mechanics for ADLs, proper sitting/standing posture. 08/05/23: time spent body mechanics lifting groceries BUE at this time/clse to body and postural alignment squat as needed straight back hip hinge if needed, vacuuming/ sweeping wt shift- better understanding. STG Duration 6 wks (07/31/23) (06/23/23: MET GOAL) updated progression Snf Goal (LTG) Be placed on an exercise program of self care HEP for core strengthening, stabilization and mobility ex' s. 06/27/23: HEP: Neutral spine 07/29/23: Reviewed HEP: TA/ multifidus and DL heel slides. 08/02/23: added/reviewed a self quadruped stretching cat/ camel and child's pose and UE/ LE ext. Added resisted shld ext with core fac reported. LTG Duration 10 wks (09/30/23) updated 08/02 Assessment Summary Assessment Pt reports still little discomfort R SI area but not as solid. Improved understanding stretch/ ROM to LS/L SI area less tension felt , not over recruit core/ multifidus with bridge better support/less back tension. Improved body mechanics carrying grocerise and know lessen amt in each bag, hip hinge and close to body in/out car. Pt reports back does feel little better end tx compared to arrival. Physical Therapy Plan Frequency and Duration Frequency of Treatment 2x/Week Duration of treatment (weeks) 10 Plan of Care Start Date 07/22/23 Plan of Care End Date 09/30/23 Therapeutic Interventions Therapeutic Interventions Home Exercise Program,Joint Mobilizations,Manual Therapy, Neuromuscular Re-education, Self-Care/Home Management,Soft Tissue Mobilization, Therapeutic Activities, Therapeutic Exercises Modalities Cold Pack/Ice Massage,Electric Stimulation,Hot Packs, Ultrasound Next Visit Focus/Plan Next Note Type Treatment Note Next Visit Plan Review HEP TA heel slide if able, check TA bridge going, body mechanics with groceries, recheck resisted lat pull down. How are stretches going for back relief/support with ex? 2x/wk for 10 weeks extended lumbar rehab due to holiday and vacation schedule. Check response stretch, add TA sit/ stands and body mechanics with lifting item and chores. STM: Paraspinals Manual: Self mob for T/S, lumbar traction Ex's: Trunk (disc dessication) and hip mobility (note: + R PSLR), Core (abdominals)/hip strengthening. Education: Posture, body mechanics/ADLs, rest positioning. Manual: sacral balancing, occasional check for need of L /S traction due to disc dessication. Modalities: Cryotherapy/MH/US
--- NOTE | 2023-08-16 16:31 | PT.OTN ---
Current Diagnoses Other chronic pain (08/16/23) Spondylosis without myelopathy or radiculopathy, lumbar region (08/16/23) Other intervertebral disc degeneration, lumbar region (08/16/23) Radiculopathy, lumbar region (08/16/23) Low back pain, unspecified (08/16/23) Muscle weakness (generalized) (08/16/23) Physical Therapy Treatment Note PT-OP-A Visit Information Start: 06/02/23 18:16 Freq: Status: Active Protocol: Document 08/16/23 10:30 LRN (Rec: 08/16/23 11:22 LRN [id number]) Out-Patient Physical Therapy Visit Information Visit Information Visit Type Treatment Note Visit Start Time 10:30 Visit Stop Time 11:22 Total Visit Minutes 52 Visit Number 7 Evaluation Information Evaluation Date 06/16/23 Precautions Precautions LATEX ALLERGY, arthritis, thyroid disorder PT-OP-B Current Condition Start: 06/02/23 18:16 Freq: Status: Active Protocol: Document 06/16/23 12:33 LRN (Rec: 06/16/23 13:28 LRN [id number]) Current Condition History of Current Condition Onset Date Last year worsened after return to gym exer Current Complaints Back pain and R LE pain. History of Current Condition For 25 yrs has had back pain and R hip pain. Variable onset of bilateral leg pain that comes only on one side at a time. States the pain moves around. Walking, standing has worsened her back and shooting pain in R hip on lateral side into the top/ lateral foot. Pain with twisting, like wiping after a BM. Pt reports being referred to PT after imaging comparison to see if her back was worsening. Prior Treatments and Tests X-Ray report 03/23/23: Grade 1 retrolisthesis of L3 on L4 and L2 on L3. Moderate, multilevel degenerative disc disease (pt reported it showed arthritis, impinging on nerves and R hip bursitis). MRI report 03/30/23: Overall similar findings when compared with the MRI dated November 03, 2016 (moderate to severe disc dessication and height loss). There was slightly increased reactive endplate changes at L2-3. No significant canal stenosis or foraminal narrowing of the lumbar spine. Pt reports in/out of PT for years. Last time 10-12 yrs ago had PT and was on an ex program, but then moved and took care of grandson from 8 months old until 8 yrs old. Future Testing and Treatments Planned Next MD visit is after 2 PT treatment visits. Developmental History Developmental History In 1999, bent over into car to pick something up and couldn' t move and straighten up. Pt was living in [place] at the time and was told not to lift >20#. Now when she lifts a gallon of milk she has tightness in the low back that warns her not to lift more. Treatment Goals Patient/Caregiver Goals Pt goal: To learn what she should avoid doing, Be placed on an exercise program. How to keep from aggrevating the LB to avoid increased pain . Current Functional Impairments (Reported) Functional Limitations- ADL's Standing or walking 1 hr or less (causes compaction of spine). Sit for a long time. Sometimes was wakes with pain in the hips and generally sore in hips waking up in morning. Avoids twisting as much as she can. Functional Limitations- Other ........... Vacuming results in pain. Personal Factors Other Personal Factors That May Effect Pt spouse sometimes needs Therapy/Recovery physical assist with tasks, pt has 25 yr history of LBP. PT-OP-C Subjective Start: 06/02/23 18:16 Freq: Status: Active Protocol: Document 08/16/23 10:30 LRN (Rec: 08/16/23 11:22 LRN [id number]) OP-PT Subjective Patient Comments Patient Comments Pillow btn knees has decreased the tenderness of the hips. States the brick in the back has returned. Was feeling better (not the constant pain in the L trunk/LB) but last week was walking around the kitchen counter and her L low back tightness returned. L lower lateral trunk pain with bending forward and rotating to the R. PT-OP-H Neuro Start: 06/02/23 18:16 Freq: Status: Active Protocol: Document 06/16/23 12:33 LRN (Rec: 06/16/23 13:28 LRN [id number]) Sensation Evaluation Gross Sensation Gross Sensation WNL PT-OP-J Posture/Palpation/Skin Start: 06/02/23 18:16 Freq: Status: Active Protocol: Document 06/16/23 12:33 LRN (Rec: 06/16/23 13:28 LRN [id number]) Posture Evaluation Position Standing T-Spine Posture Increased Kyphosis L-Spine Posture Decreased Lordosis,Shifted Left Scapula Posture (R) Depressed Pelvis Posture (R) Iliac Crest Superior Comments Posture Comments Mild increased lordosis, protruding abdomen Palpation Assessment Location Sacrum Palpation Location Sacrum Palpation Findings Tenderness Palpation Details Sacrum in extension. Hips Palpation Location Gluteals Palpation Details R Gluteals - atrophy L Gluteals - Ms tightness Low back Palpation Location Paraspinals, Interspinous spaces L1 through S1 Palpation Findings Muscle Guarding,Tenderness PT-OP-K Range of Motion Start: 06/02/23 18:16 Freq: Status: Active Protocol: Document 06/16/23 12:33 LRN (Rec: 06/16/23 13:28 LRN [id number]) Lumbar Spine Range of Motion Lumbar Spine Active Degrees Testing Position Standing Flexion 50 Extension 5 Rotation Left 20 Rotation Right 20 Lateral Flexion Left 7 Lateral Flexion Right 5 Comments Trunk AROM: Flexion is 50 deg ?s with 30 deg?s hip flexion, Trunk extension is 5 deg?s with 3 deg?s hip extension. Hip Goniometric Range of Motion Hip Right Passive Testing Position Supine Straight Leg Raise 75 Internal Rotation 30 External Rotation 65 Comments R hip pain with ER. Left Passive Testing Position Supine Straight Leg Raise 55 Internal Rotation 20 External Rotation 65 PT-OP-L Special Tests Start: 06/02/23 18:16 Freq: Status: Active Protocol: Document 06/16/23 12:33 LRN (Rec: 06/16/23 13:28 LRN [id number]) Special Tests Lumbar Spine Special Tests Straight Leg Raise Test Results + R LE: 75 deg's. L LE: 65 deg's. Comments RLE: Pain in R posterior thigh and hip PT-OP-M Strength Start: 06/02/23 18:16 Freq: Status: Active Protocol: Document 06/16/23 12:33 LRN (Rec: 06/16/23 13:28 LRN [id number]) Trunk Strength Trunk Manual Muscle Testing Core Stabilization Pt is unable to maintain core stability with LE MMT. Hip Strength Hip Manual Muscle Testing Right Flexion (L2) 3+ Fair+ Extension (S1) 5 Normal Abduction 4 Good Adduction 2 Poor External Rotation 5 Normal Internal Rotation 5 Normal Comments Pain with ER Left Flexion (L2) 3+ Fair+ Extension (S1) 3 Fair Abduction 3 Fair Adduction 1 Trace External Rotation 3 Fair Internal Rotation 5 Normal PT-OP-Q Treatments Start: 06/02/23 18:16 Freq: Status: Active Protocol: Document 08/16/23 10:30 LRN (Rec: 08/16/23 11:22 LRN [id number]) Therapeutic Exercises Supine Exercises TA/braced bridge Supine Exercise Name TA/braced bridge - doing HEP Side left Reps/Minutes 3 SH x8 reps Comments Much discussion/cuing TA& multifidus fac- good response Piriformis stretch Supine Exercise Name reviewed past own stretch Side bilateral Resistance R>L Equipment Used opp LE straight Reps/Minutes 30 SH Comments Phys & v cuing needed to perform properly Fig 4 stretch Side bilateral Resistance R>L Reps/Minutes 30SH Comments Cuing for proper postioining NS/Heel slides Supine Exercise Name NS/ Brandon heels slides Side bilateral Equipment Used TA/ Multifidus/ neutral pelvis Reps/Minutes 8 reps Comments cue TA, neutral pelvis, LE ROM can maintain TA Self-Care/Home Management Treatment Education Patient Education Home Exercise Program Activities Self-Care/Home Management Activities Issued & reviewed HEP: LE nerve glide: LE slump tensioner-kick the head. PT-OP-T Assessment and Plan Start: 06/02/23 18:16 Freq: Status: Active Protocol: Document 08/16/23 10:30 LRN (Rec: 08/16/23 11:22 LRN [id number]) Physical Therapy Assessment Goals Three Impairment Decreased hip strength Impairment R hip: Flex 3+/5, AB 4/5, AD 2/5, ER/IR 5/5. L hip: Flex 3+/5, AB & Ext 3 /5, AD 1/5, ER 3/5, IR 5/5 Short Term Goal (STG) Pt will be independent on a HEP of hip strengthening and mobility ex's. 07/29/23: added fig 4, piriformis stretch and sciatic nerve/active HS stretch R>L LE diminished radiating leg pain. 08/05/23: reviewed added last tx: LTR, piriformis, LE neural glides w/ AP with good response STG Duration 5 wks (08/26/23) updated Nursing Home Goal (LTG) Improve hip strength to 4-/5 or greater in areas of weakness. LTG Duration 10 wks (09/30/23) Two Impairment Decreased core strength and stability Impairment Pt limited in functional activities, especially motions including twisting. Short Term Goal (STG) Pt will be educated in movements and activities to avoid. 06/23/23: Pt educated in proper transfer sit<>supine and proper body mechanics. 06/27/23: Educated pt in proper transfer sit<>supine from L side of plinth and in proper body mechanics for her activities of ironing, mopping and vacumming floors. 06/27/23: Educated pt in positions and movements to avoid and educated in hip hinging for activities. STG Duration 6 wks (07/31/23) (06/23/23: MET GOAL) Balloon Tester Goal (LTG) Pt will be able to maintain core stability with MMT of lower extremities to demonstrate improved core stability and strength. 08/05/23: REviewed added TA& Multifidus bridge- painfree today. LTG Duration 10 wks (09/30/23) progressing 08/05/23 One Impairment Pt lacks appropriate self care HEP. Short Term Goal (STG) Pt will be educated in log roll transfers, proper body mechanics for ADLs, proper sitting/standing posture. 08/05/23: time spent body mechanics lifting groceries BUE at this time/clse to body and postural alignment squat as needed straight back hip hinge if needed, vacuuming/ sweeping wt shift- better understanding. STG Duration 6 wks (07/31/23) (06/23/23: MET GOAL) updated progression Balloon Tester Goal (LTG) Be placed on an exercise program of self care HEP for core strengthening, stabilization and mobility ex' s. 06/27/23: HEP: Neutral spine 07/29/23: Reviewed HEP: TA/ multifidus and DL heel slides. 08/02/23: added/reviewed a self quadruped stretching cat/ camel and child's pose and UE/ LE ext. Added resisted shld ext with core fac reported. LTG Duration 10 wks (09/30/23) updated 08/02 Assessment Summary Assessment 77 year old female who presents with onset of L posterolateral trunk pain with PSLR 70 L, 75 R. She appears to have poor core stability awareness, & doesn't appear to be aware of stabilizing her core with movement. The pt needs to stabilize her upper L /S and lower T/S to minimize L lateral trunk pain, that is probably due to Grade 1 retrolisthesis of L3 on L4 and L2 on L3 and Moderate, multilevel degenerative disc disease. Physical Therapy Plan Frequency and Duration Frequency of Treatment 2x/Week Duration of treatment (weeks) 10 Plan of Care Start Date 07/22/23 Plan of Care End Date 09/30/23 Next Visit Focus/Plan Next Note Type Treatment Note Next Visit Plan Review HEP LE neural glide- kick the head, body mechanics with groceries, recheck resisted lat pull down. Monitor how stretches are going for back relief/support with ex? Add: LE neural glide-kick the head off if needed. Progress Ex for L2-L3 and L3- L4 extension, T/S extension, upper L/S and lower T/S stabilization.Add TA sit/ stands and body mechanics with lifting item and chores. STM: Paraspinals Manual: Gentle self mob for T /S (extension avoiding rotation), lumbar traction Ex's: Trunk (disc dessication) and hip mobility (note: + R PSLR), Core (abdominals)/hip strengthening. Education: Posture, body mechanics/ADLs, rest positioning. Manual: sacral balancing, occasional check for need of L /S traction due to disc dessication. Modalities: Cryotherapy/MH/US POC: 2x/wk for 10 weeks extension of lumbar rehab due to holiday and vacation schedule.
--- NOTE | 2023-08-16 16:35 | PT.OTN ---
Current Diagnoses Other chronic pain (08/16/23) Spondylosis without myelopathy or radiculopathy, lumbar region (08/16/23) Other intervertebral disc degeneration, lumbar region (08/16/23) Radiculopathy, lumbar region (08/16/23) Low back pain, unspecified (08/16/23) Muscle weakness (generalized) (08/16/23) Physical Therapy Treatment Note PT-OP-A Visit Information Start: 06/02/23 18:16 Freq: Status: Active Protocol: Document 08/16/23 10:30 LRN (Rec: 08/16/23 11:22 LRN [id number]) Out-Patient Physical Therapy Visit Information Visit Information Visit Type Treatment Note Visit Start Time 10:30 Visit Stop Time 11:22 Total Visit Minutes 52 Visit Number 7 Evaluation Information Evaluation Date 06/16/23 Precautions Precautions LATEX ALLERGY, arthritis, thyroid disorder PT-OP-B Current Condition Start: 06/02/23 18:16 Freq: Status: Active Protocol: Document 06/16/23 12:33 LRN (Rec: 06/16/23 13:28 LRN [id number]) Current Condition History of Current Condition Onset Date Last year worsened after return to gym exer Current Complaints Back pain and R LE pain. History of Current Condition For 25 yrs has had back pain and R hip pain. Variable onset of bilateral leg pain that comes only on one side at a time. States the pain moves around. Walking, standing has worsened her back and shooting pain in R hip on lateral side into the top/ lateral foot. Pain with twisting, like wiping after a BM. Pt reports being referred to PT after imaging comparison to see if her back was worsening. Prior Treatments and Tests X-Ray report 03/23/23: Grade 1 retrolisthesis of L3 on L4 and L2 on L3. Moderate, multilevel degenerative disc disease (pt reported it showed arthritis, impinging on nerves and R hip bursitis). MRI report 03/30/23: Overall similar findings when compared with the MRI dated November 03, 2016 (moderate to severe disc dessication and height loss). There was slightly increased reactive endplate changes at L2-3. No significant canal stenosis or foraminal narrowing of the lumbar spine. Pt reports in/out of PT for years. Last time 10-12 yrs ago had PT and was on an ex program, but then moved and took care of grandson from 8 months old until 8 yrs old. Future Testing and Treatments Planned Next MD visit is after 2 PT treatment visits. Developmental History Developmental History In 1999, bent over into car to pick something up and couldn' t move and straighten up. Pt was living in [place] at the time and was told not to lift >20#. Now when she lifts a gallon of milk she has tightness in the low back that warns her not to lift more. Treatment Goals Patient/Caregiver Goals Pt goal: To learn what she should avoid doing, Be placed on an exercise program. How to keep from aggrevating the LB to avoid increased pain . Current Functional Impairments (Reported) Functional Limitations- ADL's Standing or walking 1 hr or less (causes compaction of spine). Sit for a long time. Sometimes was wakes with pain in the hips and generally sore in hips waking up in morning. Avoids twisting as much as she can. Functional Limitations- Other ........... Vacuming results in pain. Personal Factors Other Personal Factors That May Effect Pt spouse sometimes needs Therapy/Recovery physical assist with tasks, pt has 25 yr history of LBP. PT-OP-C Subjective Start: 06/02/23 18:16 Freq: Status: Active Protocol: Document 08/16/23 10:30 LRN (Rec: 08/16/23 11:22 LRN [id number]) OP-PT Subjective Patient Comments Patient Comments Pillow btn knees has decreased the tenderness of the hips. States the brick in the back has returned. Was feeling better (not the constant pain in the L trunk/LB) but last week was walking around the kitchen counter and her L low back tightness returned. L lower lateral trunk pain with bending forward and rotating to the R. PT-OP-H Neuro Start: 06/02/23 18:16 Freq: Status: Active Protocol: Document 06/16/23 12:33 LRN (Rec: 06/16/23 13:28 LRN [id number]) Sensation Evaluation Gross Sensation Gross Sensation WNL PT-OP-J Posture/Palpation/Skin Start: 06/02/23 18:16 Freq: Status: Active Protocol: Document 06/16/23 12:33 LRN (Rec: 06/16/23 13:28 LRN [id number]) Posture Evaluation Position Standing T-Spine Posture Increased Kyphosis L-Spine Posture Decreased Lordosis,Shifted Left Scapula Posture (R) Depressed Pelvis Posture (R) Iliac Crest Superior Comments Posture Comments Mild increased lordosis, protruding abdomen Palpation Assessment Location Sacrum Palpation Location Sacrum Palpation Findings Tenderness Palpation Details Sacrum in extension. Hips Palpation Location Gluteals Palpation Details R Gluteals - atrophy L Gluteals - Ms tightness Low back Palpation Location Paraspinals, Interspinous spaces L1 through S1 Palpation Findings Muscle Guarding,Tenderness PT-OP-K Range of Motion Start: 06/02/23 18:16 Freq: Status: Active Protocol: Document 08/16/23 10:30 LRN (Rec: 08/16/23 16:35 LRN [id number]) Hip Goniometric Range of Motion Hip Right Passive Testing Position Supine Straight Leg Raise 75 Comments L posterolateral trunk pain Left Passive Testing Position Supine Straight Leg Raise 70 Comments L posterolateral trunk pain PT-OP-L Special Tests Start: 06/02/23 18:16 Freq: Status: Active Protocol: Document 06/16/23 12:33 LRN (Rec: 06/16/23 13:28 LRN [id number]) Special Tests Lumbar Spine Special Tests Straight Leg Raise Test Results + R LE: 75 deg's. L LE: 65 deg's. Comments RLE: Pain in R posterior thigh and hip PT-OP-M Strength Start: 06/02/23 18:16 Freq: Status: Active Protocol: Document 06/16/23 12:33 LRN (Rec: 06/16/23 13:28 LRN [id number]) Trunk Strength Trunk Manual Muscle Testing Core Stabilization Pt is unable to maintain core stability with LE MMT. Hip Strength Hip Manual Muscle Testing Right Flexion (L2) 3+ Fair+ Extension (S1) 5 Normal Abduction 4 Good Adduction 2 Poor External Rotation 5 Normal Internal Rotation 5 Normal Comments Pain with ER Left Flexion (L2) 3+ Fair+ Extension (S1) 3 Fair Abduction 3 Fair Adduction 1 Trace External Rotation 3 Fair Internal Rotation 5 Normal PT-OP-Q Treatments Start: 06/02/23 18:16 Freq: Status: Active Protocol: Document 08/16/23 10:30 LRN (Rec: 08/16/23 11:22 LRN [id number]) Therapeutic Exercises Supine Exercises TA/braced bridge Supine Exercise Name TA/braced bridge - doing HEP Side left Reps/Minutes 3 SH x8 reps Comments Much discussion/cuing TA& multifidus fac- good response Piriformis stretch Supine Exercise Name reviewed past own stretch Side bilateral Resistance R>L Equipment Used opp LE straight Reps/Minutes 30 SH Comments Phys & v cuing needed to perform properly Fig 4 stretch Side bilateral Resistance R>L Reps/Minutes 30SH Comments Cuing for proper postioining NS/Heel slides Supine Exercise Name NS/ Brandon heels slides Side bilateral Equipment Used TA/ Multifidus/ neutral pelvis Reps/Minutes 8 reps Comments cue TA, neutral pelvis, LE ROM can maintain TA Self-Care/Home Management Treatment Education Patient Education Home Exercise Program Activities Self-Care/Home Management Activities Issued & reviewed HEP: LE nerve glide: LE slump tensioner-kick the head. PT-OP-T Assessment and Plan Start: 06/02/23 18:16 Freq: Status: Active Protocol: Document 08/16/23 10:30 LRN (Rec: 08/16/23 11:22 LRN [id number]) Physical Therapy Assessment Goals Three Impairment Decreased hip strength Impairment R hip: Flex 3+/5, AB 4/5, AD 2/5, ER/IR 5/5. L hip: Flex 3+/5, AB & Ext 3 /5, AD 1/5, ER 3/5, IR 5/5 Short Term Goal (STG) Pt will be independent on a HEP of hip strengthening and mobility ex's. 07/29/23: added fig 4, piriformis stretch and sciatic nerve/active HS stretch R>L LE diminished radiating leg pain. 08/05/23: reviewed added last tx: LTR, piriformis, LE neural glides w/ AP with good response STG Duration 5 wks (08/26/23) updated Cost Estimating Engineer Goal (LTG) Improve hip strength to 4-/5 or greater in areas of weakness. LTG Duration 10 wks (09/30/23) Two Impairment Decreased core strength and stability Impairment Pt limited in functional activities, especially motions including twisting. Short Term Goal (STG) Pt will be educated in movements and activities to avoid. 06/23/23: Pt educated in proper transfer sit<>supine and proper body mechanics. 06/27/23: Educated pt in proper transfer sit<>supine from L side of plinth and in proper body mechanics for her activities of ironing, mopping and vacumming floors. 06/27/23: Educated pt in positions and movements to avoid and educated in hip hinging for activities. STG Duration 6 wks (07/31/23) (06/23/23: MET GOAL) Cost Estimating Engineer Goal (LTG) Pt will be able to maintain core stability with MMT of lower extremities to demonstrate improved core stability and strength. 08/05/23: REviewed added TA& Multifidus bridge- painfree today. LTG Duration 10 wks (09/30/23) progressing 08/05/23 One Impairment Pt lacks appropriate self care HEP. Short Term Goal (STG) Pt will be educated in log roll transfers, proper body mechanics for ADLs, proper sitting/standing posture. 08/05/23: time spent body mechanics lifting groceries BUE at this time/clse to body and postural alignment squat as needed straight back hip hinge if needed, vacuuming/ sweeping wt shift- better understanding. STG Duration 6 wks (07/31/23) (06/23/23: MET GOAL) updated progression Snf Goal (LTG) Be placed on an exercise program of self care HEP for core strengthening, stabilization and mobility ex' s. 06/27/23: HEP: Neutral spine 07/29/23: Reviewed HEP: TA/ multifidus and DL heel slides. 08/02/23: added/reviewed a self quadruped stretching cat/ camel and child's pose and UE/ LE ext. Added resisted shld ext with core fac reported. LTG Duration 10 wks (09/30/23) updated 08/02 Assessment Summary Assessment 77 year old female who presents with onset of L posterolateral trunk pain with PSLR 70 L, 75 R. She appears to have poor core stability awareness, & doesn't appear to be aware of stabilizing her core with movement. The pt needs to stabilize her upper L /S and lower T/S to minimize L lateral trunk pain, that is probably due to Grade 1 retrolisthesis of L3 on L4 and L2 on L3 and Moderate, multilevel degenerative disc disease. Physical Therapy Plan Frequency and Duration Frequency of Treatment 2x/Week Duration of treatment (weeks) 10 Plan of Care Start Date 07/22/23 Plan of Care End Date 09/30/23 Next Visit Focus/Plan Next Note Type Treatment Note Next Visit Plan Review HEP LE neural glide- kick the head, body mechanics with groceries, recheck resisted lat pull down. Monitor how stretches are going for back relief/support with ex? Add: LE neural glide-kick the head off if needed. Progress Ex for L2-L3 and L3- L4 extension, T/S extension, upper L/S and lower T/S stabilization.Add TA sit/ stands and body mechanics with lifting item and chores. STM: Paraspinals Manual: Gentle self mob for T /S (extension avoiding rotation), lumbar traction Ex's: Trunk (disc dessication) and hip mobility (note: + R PSLR), Core (abdominals)/hip strengthening. Education: Posture, body mechanics/ADLs, rest positioning. Manual: sacral balancing, occasional check for need of L /S traction due to disc dessication. Modalities: Cryotherapy/MH/US POC: 2x/wk for 10 weeks extension of lumbar rehab due to holiday and vacation schedule.
--- NOTE | 2023-08-19 12:26 | PT.OTN ---
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/23) Other intervertebral disc degeneration, lumbar region (08/19/23) Radiculopathy, lumbar region (08/19/23) Low back pain, unspecified (08/19/23) Muscle weakness (generalized) (08/19/23) Physical Therapy Treatment Note PT-OP-A Visit Information Start: 06/02/23 18:16 Freq: Status: Active Protocol: Document 08/19/23 11:19 LRN (Rec: 08/19/23 12:26 LRN [id number]) Out-Patient Physical Therapy Visit Information Visit Information Visit Type Treatment Note Visit Start Time 11:19 Visit Stop Time 12:09 Total Visit Minutes 50 Visit Number 8 Evaluation Information Evaluation Date 06/16/23 Precautions Precautions LATEX ALLERGY, arthritis, thyroid disorder PT-OP-B Current Condition Start: 06/02/23 18:16 Freq: Status: Active Protocol: Document 06/16/23 12:33 LRN (Rec: 06/16/23 13:28 LRN [id number]) Current Condition History of Current Condition Onset Date Last year worsened after return to gym exer Current Complaints Back pain and R LE pain. History of Current Condition For 25 yrs has had back pain and R hip pain. Variable onset of bilateral leg pain that comes only on one side at a time. States the pain moves around. Walking, standing has worsened her back and shooting pain in R hip on lateral side into the top/ lateral foot. Pain with twisting, like wiping after a BM. Pt reports being referred to PT after imaging comparison to see if her back was worsening. Prior Treatments and Tests X-Ray report 03/23/23: Grade 1 retrolisthesis of L3 on L4 and L2 on L3. Moderate, multilevel degenerative disc disease (pt reported it showed arthritis, impinging on nerves and R hip bursitis). MRI report 03/30/23: Overall similar findings when compared with the MRI dated November 03, 2016 (moderate to severe disc dessication and height loss). There was slightly increased reactive endplate changes at L2-3. No significant canal stenosis or foraminal narrowing of the lumbar spine. Pt reports in/out of PT for years. Last time 10-12 yrs ago had PT and was on an ex program, but then moved and took care of grandson from 8 months old until 8 yrs old. Future Testing and Treatments Planned Next MD visit is after 2 PT treatment visits. Developmental History Developmental History In 1999, bent over into car to pick something up and couldn' t move and straighten up. Pt was living in [place] at the time and was told not to lift >20#. Now when she lifts a gallon of milk she has tightness in the low back that warns her not to lift more. Treatment Goals Patient/Caregiver Goals Pt goal: To learn what she should avoid doing, Be placed on an exercise program. How to keep from aggrevating the LB to avoid increased pain . Current Functional Impairments (Reported) Functional Limitations- ADL's Standing or walking 1 hr or less (causes compaction of spine). Sit for a long time. Sometimes was wakes with pain in the hips and generally sore in hips waking up in morning. Avoids twisting as much as she can. Functional Limitations- Other ........... Vacuming results in pain. Personal Factors Other Personal Factors That May Effect Pt spouse sometimes needs Therapy/Recovery physical assist with tasks, pt has 25 yr history of LBP. PT-OP-C Subjective Start: 06/02/23 18:16 Freq: Status: Active Protocol: Document 08/19/23 11:19 LRN (Rec: 08/19/23 12:26 LRN [id number]) OP-PT Subjective Patient Comments Patient Comments States she was doing well and yesterday was doing her HEP and caused pain in her R lower leg, thinks it is from the kick the head off ex. PT-OP-H Neuro Start: 06/02/23 18:16 Freq: Status: Active Protocol: Document 06/16/23 12:33 LRN (Rec: 06/16/23 13:28 LRN [id number]) Sensation Evaluation Gross Sensation Gross Sensation WNL PT-OP-J Posture/Palpation/Skin Start: 06/02/23 18:16 Freq: Status: Active Protocol: Document 06/16/23 12:33 LRN (Rec: 06/16/23 13:28 LRN [id number]) Posture Evaluation Position Standing T-Spine Posture Increased Kyphosis L-Spine Posture Decreased Lordosis,Shifted Left Scapula Posture (R) Depressed Pelvis Posture (R) Iliac Crest Superior Comments Posture Comments Mild increased lordosis, protruding abdomen Palpation Assessment Location Sacrum Palpation Location Sacrum Palpation Findings Tenderness Palpation Details Sacrum in extension. Hips Palpation Location Gluteals Palpation Details R Gluteals - atrophy L Gluteals - Ms tightness Low back Palpation Location Paraspinals, Interspinous spaces L1 through S1 Palpation Findings Muscle Guarding,Tenderness PT-OP-K Range of Motion Start: 06/02/23 18:16 Freq: Status: Active Protocol: Document 08/16/23 10:30 LRN (Rec: 08/16/23 16:35 LRN [id number]) Hip Goniometric Range of Motion Hip Right Passive Testing Position Supine Straight Leg Raise 75 Comments L posterolateral trunk pain Left Passive Testing Position Supine Straight Leg Raise 70 Comments L posterolateral trunk pain PT-OP-L Special Tests Start: 06/02/23 18:16 Freq: Status: Active Protocol: Document 06/16/23 12:33 LRN (Rec: 06/16/23 13:28 LRN [id number]) Special Tests Lumbar Spine Special Tests Straight Leg Raise Test Results + R LE: 75 deg's. L LE: 65 deg's. Comments RLE: Pain in R posterior thigh and hip PT-OP-M Strength Start: 06/02/23 18:16 Freq: Status: Active Protocol: Document 06/16/23 12:33 LRN (Rec: 06/16/23 13:28 LRN [id number]) Trunk Strength Trunk Manual Muscle Testing Core Stabilization Pt is unable to maintain core stability with LE MMT. Hip Strength Hip Manual Muscle Testing Right Flexion (L2) 3+ Fair+ Extension (S1) 5 Normal Abduction 4 Good Adduction 2 Poor External Rotation 5 Normal Internal Rotation 5 Normal Comments Pain with ER Left Flexion (L2) 3+ Fair+ Extension (S1) 3 Fair Abduction 3 Fair Adduction 1 Trace External Rotation 3 Fair Internal Rotation 5 Normal PT-OP-Q Treatments Start: 06/02/23 18:16 Freq: Status: Active Protocol: Document 08/19/23 11:19 LRN (Rec: 08/19/23 12:26 LRN [id number]) Therapeutic Exercises Supine Exercises TA/Leg lift Supine Exercise Name NS-TA/Leg lift Side bilateral Reps/Minutes 10x each Comments Extra time for training & Cuing for NS positioning throughout exercise. TA/braced bridge Supine Exercise Name TA/braced bridge - doing HEP Side left Reps/Minutes 10x lifts w/o pain Comments Much discussion/cuing TA& multifidus fac- good response Piriformis stretch Supine Exercise Name Piriformis stretch -past own stretch Side bilateral Resistance R>L Equipment Used opp LE straight Reps/Minutes 30 SH Comments Phys & v cuing needed to perform properly Fig 4 stretch Supine Exercise Name Fig 4 stretch Side bilateral Resistance R>L Reps/Minutes 30SH Comments Cuing for NS and proper postioining NS/Heel slides Supine Exercise Name NS/ Brandon heels slides Side bilateral Equipment Used TA/ Multifidus/ neutral pelvis Reps/Minutes 10 reps Comments cue TA, neutral pelvis, LE ROM can maintain TA Neutral spine awareness Supine Exercise Name Neutral spine awareness training Reps/Minutes 2' Comments supine and standing Standing Exercises shoulder extension Standing Exercise Name Core stab/Brandon Shldr ext Side bilateral Resistance orange TB Reps/Minutes 15x 2 reps Comments cued neutral pelvis, elbow extension, pull back to side leg- good core/rho Other Exercises Transfer training Other Exercise Name Sit<>Stand & Floor (1/2 kneel) to stand w/emphasis on NS Reps/Minutes 5' Comments Constant cuing for Neutral Spine (NS) and geting COG over feet. Self-Care/Home Management Treatment Education Other Education Educated pt in affect of carrying weights and posturing on mid/lower back with COG as reference. Discussed carrying of groceries and best places for carrying and arm placement for vacuuming activity. PT-OP-T Assessment and Plan Start: 06/02/23 18:16 Freq: Status: Active Protocol: Document 08/19/23 11:19 LRN (Rec: 08/19/23 12:26 LRN [id number]) Physical Therapy Assessment Goals Three Impairment Decreased hip strength Impairment R hip: Flex 3+/5, AB 4/5, AD 2/5, ER/IR 5/5. L hip: Flex 3+/5, AB & Ext 3 /5, AD 1/5, ER 3/5, IR 5/5 Short Term Goal (STG) Pt will be independent on a HEP of hip strengthening and mobility ex's. 07/29/23: added fig 4, piriformis stretch and sciatic nerve/active HS stretch R>L LE diminished radiating leg pain. 08/05/23: reviewed added last tx: LTR, piriformis, LE neural glides w/ AP with good response STG Duration 5 wks (08/26/23) updated Fpc Goal (LTG) Improve hip strength to 4-/5 or greater in areas of weakness. LTG Duration 10 wks (09/30/23) Two Impairment Decreased core strength and stability Impairment Pt limited in functional activities, especially motions including twisting. Short Term Goal (STG) Pt will be educated in movements and activities to avoid. 06/23/23: Pt educated in proper transfer sit<>supine and proper body mechanics. 06/27/23: Educated pt in proper transfer sit<>supine from L side of plinth and in proper body mechanics for her activities of ironing, mopping and vacumming floors. 06/27/23: Educated pt in positions and movements to avoid and educated in hip hinging for activities. STG Duration 6 wks (07/31/23) (06/23/23: MET GOAL) Fpc Goal (LTG) Pt will be able to maintain core stability with MMT of lower extremities to demonstrate improved core stability and strength. 08/05/23: REviewed added TA& Multifidus bridge- painfree today. LTG Duration 10 wks (09/30/23) progressing 08/05/23 One Impairment Pt lacks appropriate self care HEP. Short Term Goal (STG) Pt will be educated in log roll transfers, proper body mechanics for ADLs, proper sitting/standing posture. 08/05/23: time spent body mechanics lifting groceries BUE at this time/clse to body and postural alignment squat as needed straight back hip hinge if needed, vacuuming/ sweeping wt shift- better understanding. STG Duration 6 wks (07/31/23) (06/23/23: MET GOAL) updated progression Fpc Goal (LTG) Be placed on an exercise program of self care HEP for core strengthening, stabilization and mobility ex' s. 06/27/23: HEP: Neutral spine 07/29/23: Reviewed HEP: TA/ multifidus and DL heel slides. 08/02/23: added/reviewed a self quadruped stretching cat/ camel and child's pose and UE/ LE ext. Added resisted shld ext with core fac reported. LTG Duration 10 wks (09/30/23) updated 08/02 Assessment Summary Assessment Trunk rotation increases mid/ upper L/S pain, might try to isolate rotation from mid/ upper L/S back. Pt had onset of sciatic n complaints after HEP of sciatic n glide; therefore limited to sitting ex due to no pain complaints today. Pt needing a lot of cuing for neutral spine positioning with exercises. Progress is slow as pt is slowly improving in awareness of lumbar stability and posture. Much cuing is need throughout therapy for neutral spine positioning. It appears use of hot/cold during treatment was helpful in limiting pain in mid/upper lumbar pain on L side. Physical Therapy Plan Frequency and Duration Frequency of Treatment 2x/Week Duration of treatment (weeks) 10 Plan of Care Start Date 07/22/23 Plan of Care End Date 09/30/23 Next Visit Focus/Plan Next Note Type Treatment Note Next Visit Plan Review again body mechanics with groceries (lever arms) for understanding of training. Monitor how stretches are going for back relief/support with ex & Monitor for tolerance for: LE neural glide -kick the head and supine Hamstring/LE nerve glide. Review TA sit/stands and add body mechanics with lifting item and chores. Hold adding handout for HEP: LE neural glide-kick the head off until pt able to understand limit of performing . Progress slowly Ex for L2-L3 and L3-L4 extension, T/S extension, upper L/S and lower T/S stabilization. STM: Paraspinals Manual: Gentle self mob for T /S (extension avoiding rotation), lumbar traction Ex's: Trunk (disc dessication) and hip mobility (note: + R PSLR), Core (abdominals)/hip strengthening. Education: Posture, body mechanics/ADLs, rest positioning. Manual: sacral balancing, occasional check for need of L /S traction due to disc dessication. Modalities: Cryotherapy/MH/US POC: 2x/wk for 10 weeks extension of lumbar rehab due to holiday and vacation schedule.
--- NOTE | 2023-08-23 13:45 | PT.OTN ---
Current Diagnoses Other chronic pain (08/23/23) Spondylosis without myelopathy or radiculopathy, lumbar region (08/23/23) Other intervertebral disc degeneration, lumbar region (08/23/23) Radiculopathy, lumbar region (08/23/23) Low back pain, unspecified (08/23/23) Muscle weakness (generalized) (08/23/23) Physical Therapy Treatment Note PT-OP-A Visit Information Start: 06/02/23 18:16 Freq: Status: Active Protocol: Document 08/23/23 13:04 SP (Rec: 08/23/23 14:13 SP [id number]) Out-Patient Physical Therapy Visit Information Visit Information Visit Type Treatment Note Visit Start Time 13:04 Visit Stop Time 13:45 Total Visit Minutes 41 Visit Number 9 Number of DIRECTOR OF ESTATE Visits 1 Evaluation Information Evaluation Date 06/16/23 Precautions Precautions LATEX ALLERGY, arthritis, thyroid disorder PT-OP-B Current Condition Start: 06/02/23 18:16 Freq: Status: Active Protocol: Document 06/16/23 12:33 LRN (Rec: 06/16/23 13:28 LRN [id number]) Current Condition History of Current Condition Onset Date Last year worsened after return to gym exer Current Complaints Back pain and R LE pain. History of Current Condition For 25 yrs has had back pain and R hip pain. Variable onset of bilateral leg pain that comes only on one side at a time. States the pain moves around. Walking, standing has worsened her back and shooting pain in R hip on lateral side into the top/ lateral foot. Pain with twisting, like wiping after a BM. Pt reports being referred to PT after imaging comparison to see if her back was worsening. Prior Treatments and Tests X-Ray report 03/23/23: Grade 1 retrolisthesis of L3 on L4 and L2 on L3. Moderate, multilevel degenerative disc disease (pt reported it showed arthritis, impinging on nerves and R hip bursitis). MRI report 03/30/23: Overall similar findings when compared with the MRI dated November 03, 2016 (moderate to severe disc dessication and height loss). There was slightly increased reactive endplate changes at L2-3. No significant canal stenosis or foraminal narrowing of the lumbar spine. Pt reports in/out of PT for years. Last time 10-12 yrs ago had PT and was on an ex program, but then moved and took care of grandson from 8 months old until 6 yrs old. Future Testing and Treatments Planned Next MD visit is after 2 PT treatment visits. Developmental History Developmental History In 1999, bent over into car to pick something up and couldn' t move and straighten up. Pt was living in [place] at the time and was told not to lift >20#. Now when she lifts a gallon of milk she has tightness in the low back that warns her not to lift more. Treatment Goals Patient/Caregiver Goals Pt goal: To learn what she should avoid doing, Be placed on an exercise program. How to keep from aggrevating the LB to avoid increased pain . Current Functional Impairments (Reported) Functional Limitations- ADL's Standing or walking 1 hr or less (causes compaction of spine). Sit for a long time. Sometimes was wakes with pain in the hips and generally sore in hips waking up in morning. Avoids twisting as much as she can. Functional Limitations- Other ........... Vacuming results in pain. Personal Factors Other Personal Factors That May Effect Pt spouse sometimes needs Therapy/Recovery physical assist with tasks, pt has 25 yr history of LBP. PT-OP-C Subjective Start: 06/02/23 18:16 Freq: Status: Active Protocol: Document 08/23/23 13:04 SP (Rec: 08/23/23 14:13 SP [id number]) OP-PT Subjective Patient Comments Patient Comments Pt reports back feeling full and uncomfortable lateral B R> L hips down lateral leg (skips lateral mid thigh and knee) to lateral ankle. Has been sitting for longer than usual recently. Has follow up appt at 1400 with referring physician. She is having grocery store staff lessen items in each bag. Still has to ask to help her get groceries out of car. PT-OP-H Neuro Start: 06/02/23 18:16 Freq: Status: Active Protocol: Document 06/16/23 12:33 LRN (Rec: 06/16/23 13:28 LRN [id number]) Sensation Evaluation Gross Sensation Gross Sensation WNL PT-OP-J Posture/Palpation/Skin Start: 06/02/23 18:16 Freq: Status: Active Protocol: Document 06/16/23 12:33 LRN (Rec: 06/16/23 13:28 LRN [id number]) Posture Evaluation Position Standing T-Spine Posture Increased Kyphosis L-Spine Posture Decreased Lordosis,Shifted Left Scapula Posture (R) Depressed Pelvis Posture (R) Iliac Crest Superior Comments Posture Comments Mild increased lordosis, protruding abdomen Palpation Assessment Location Sacrum Palpation Location Sacrum Palpation Findings Tenderness Palpation Details Sacrum in extension. Hips Palpation Location Gluteals Palpation Details R Gluteals - atrophy L Gluteals - Ms tightness Low back Palpation Location Paraspinals, Interspinous spaces L1 through S1 Palpation Findings Muscle Guarding,Tenderness PT-OP-K Range of Motion Start: 06/02/23 18:16 Freq: Status: Active Protocol: Document 08/16/23 10:30 LRN (Rec: 08/16/23 16:35 LRN [id number]) Hip Goniometric Range of Motion Hip Right Passive Testing Position Supine Straight Leg Raise 75 Comments L posterolateral trunk pain Left Passive Testing Position Supine Straight Leg Raise 70 Comments L posterolateral trunk pain PT-OP-L Special Tests Start: 06/02/23 18:16 Freq: Status: Active Protocol: Document 06/16/23 12:33 LRN (Rec: 06/16/23 13:28 LRN [id number]) Special Tests Lumbar Spine Special Tests Straight Leg Raise Test Results + R LE: 75 deg's. L LE: 65 deg's. Comments RLE: Pain in R posterior thigh and hip PT-OP-M Strength Start: 06/02/23 18:16 Freq: Status: Active Protocol: Document 06/16/23 12:33 LRN (Rec: 06/16/23 13:28 LRN [id number]) Trunk Strength Trunk Manual Muscle Testing Core Stabilization Pt is unable to maintain core stability with LE MMT. Hip Strength Hip Manual Muscle Testing Right Flexion (L2) 3+ Fair+ Extension (S1) 5 Normal Abduction 4 Good Adduction 2 Poor External Rotation 5 Normal Internal Rotation 5 Normal Comments Pain with ER Left Flexion (L2) 3+ Fair+ Extension (S1) 3 Fair Abduction 3 Fair Adduction 1 Trace External Rotation 3 Fair Internal Rotation 5 Normal PT-OP-Q Treatments Start: 06/02/23 18:16 Freq: Status: Active Protocol: Document 08/23/23 13:04 SP (Rec: 08/23/23 14:13 SP [id number]) Therapeutic Exercises Supine Exercises TA/braced bridge Supine Exercise Name TA/braced bridge - doing HEP Side left Reps/Minutes 10x lifts w/o pain Comments Much discussion/cuing TA& multifidus fac- good response Sciatic nerve glide Supine Exercise Name LE neural sciatic glide review Side bilateral Equipment Used grasp behind thigh Reps/Minutes x10 CCW AROM Comments good feedback stretch , included ankle counterclockwise AROM Neutral spine awareness Supine Exercise Name Neutral spine awareness training Reps/Minutes 2' Comments supine and standing, corner turns around island, load/ empty medicine assistant, [place] Sitting Exercises stretching Sitting Exercise Name 1. trunk flexion (LS stretch) 2. piriformis (hip IR) 3. fig 4 (hip ER) Side bilateral Resistance 4. butterfly self on floor stretch (painfree) Reps/Minutes 20 SH x2 Comments R hip irritation fig 4/ok piriformis, L hip ok both- decre LS pain post hip Sciatic neural glide Sitting Exercise Name review seated neural glide Side bilateral Comments kick head off: LE ext with head extension-no pain Other Exercises STS Tball OH raise Other Exercise Name trialed for NS/hip hindge squat potato picker (laundry/dishes put OH cabinet) Resistance 55cm tball Equipment Used chair target hover to/sit if needed Reps/Minutes x5 reps Comments cues CS chin tuck, hip hinge, knee flex lift/lower tball Transfer training Other Exercise Name Sit<>Stand & Floor (1/2 kneel) to stand w/emphasis on NS Equipment Used NS over CHRISTOPHER with grandson Reps/Minutes 5' Comments Occ. Neutral Spine (NS) tall kneel> side sit>cymro , 1/2 kneel/tall kneel PT-OP-T Assessment and Plan Start: 06/02/23 18:16 Freq: Status: Active Protocol: Document 08/23/23 13:04 SP (Rec: 08/23/23 14:13 SP [id number]) Physical Therapy Assessment Goals Three Impairment Decreased hip strength Impairment R hip: Flex 3+/5, AB 4/5, AD 2/5, ER/IR 5/5. L hip: Flex 3+/5, AB & Ext 3 /5, AD 1/5, ER 3/5, IR 5/5 Short Term Goal (STG) Pt will be independent on a HEP of hip strengthening and mobility ex's. 07/29/23: added fig 4, piriformis stretch and sciatic nerve/active HS stretch R>L LE diminished radiating leg pain. 08/05/23: reviewed added last tx: LTR, piriformis, LE neural glides w/ AP with good response STG Duration 5 wks (08/26/23) updated Religious Activities Director Goal (LTG) Improve hip strength to 4-/5 or greater in areas of weakness. LTG Duration 10 wks (09/30/23) Two Impairment Decreased core strength and stability Impairment Pt limited in functional activities, especially motions including twisting. Short Term Goal (STG) Pt will be educated in movements and activities to avoid. 06/23/23: Pt educated in proper transfer sit<>supine and proper body mechanics. 06/27/23: Educated pt in proper transfer sit<>supine from L side of plinth and in proper body mechanics for her activities of ironing, mopping and vacumming floors. 06/27/23: Educated pt in positions and movements to avoid and educated in hip hinging for activities. STG Duration 6 wks (07/31/23) (06/23/23: MET GOAL) Residential Goal (LTG) Pt will be able to maintain core stability with MMT of lower extremities to demonstrate improved core stability and strength. 08/05/23: REviewed added TA& Multifidus bridge- painfree today. LTG Duration 10 wks (09/30/23) progressing 08/05/23 One Impairment Pt lacks appropriate self care HEP. Short Term Goal (STG) Pt will be educated in log roll transfers, proper body mechanics for ADLs, proper sitting/standing posture. 08/05/23: time spent body mechanics lifting groceries BUE at this time/clse to body and postural alignment squat as needed straight back hip hinge if needed, vacuuming/ sweeping wt shift- better understanding. STG Duration 6 wks (07/31/23) (06/23/23: MET GOAL) updated progression Religious Activities Director Goal (LTG) Be placed on an exercise program of self care HEP for core strengthening, stabilization and mobility ex' s. 06/27/23: HEP: Neutral spine 07/29/23: Reviewed HEP: TA/ multifidus and DL heel slides. 08/02/23: added/reviewed a self quadruped stretching cat/ camel and child's pose and UE/ LE ext. Added resisted shld ext with core fac reported. LTG Duration 10 wks (09/30/23) updated 08/02 Assessment Summary Assessment Pt improved self verbal neutral spine performance. Improved TA/ HS during bridge painfree, getting on/off floor no outside support needed, occasional cues for limit side sitting for NS support. She reported sciatic symptoms down R lateral hip/lower leg during squat motion of STS reaching Tball OH and seated hip fig 4, improves with piriformis stretch. She demonstrates understanding and corrections during mobility ADLs (at sink split stance, groceries NS). She stated back and leg pain better end of tx . She is seeing her referring physician at 1400. Physical Therapy Plan Frequency and Duration Frequency of Treatment 2x/Week Duration of treatment (weeks) 10 Plan of Care Start Date 07/22/23 Plan of Care End Date 09/30/23 Therapeutic Interventions Therapeutic Interventions Home Exercise Program,Joint Mobilizations,Manual Therapy, Neuromuscular Re-education, Self-Care/Home Management,Soft Tissue Mobilization, Therapeutic Activities, Therapeutic Exercises Modalities Cold Pack/Ice Massage,Electric Stimulation,Hot Packs, Ultrasound Next Visit Focus/Plan Next Note Type Treatment Note Next Visit Plan Review again body mechanics as needed. On/off floor HEP and mobility playing with rosibel . Hold adding handout for HEP: LE neural glide-kick the head off until pt able to understand limit of performing . Progress slowly Ex for L2-L3 and L3-L4 extension, T/S extension, upper L/S and lower T/S stabilization. STM: Paraspinals Manual: Gentle self mob for T /S (extension avoiding rotation), lumbar traction Ex's: Trunk (disc dessication) and hip mobility (note: + R PSLR), Core (abdominals)/hip strengthening. Education: Posture, body mechanics/ADLs, rest positioning. Manual: sacral balancing, occasional check for need of L /S traction due to disc dessication. Modalities: Cryotherapy/MH/US POC: 2x/wk for 10 weeks extension of lumbar rehab due to holiday and vacation schedule.
--- NOTE | 2023-08-26 12:26 | PT.OTN ---
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, lumbar region (08/26/23) Radiculopathy, lumbar region (08/26/23) Low back pain, unspecified (08/26/23) Muscle weakness (generalized) (08/26/23) Physical Therapy Treatment Note PT-OP-A Visit Information Start: 06/02/23 18:16 Freq: Status: Active Protocol: Document 08/26/23 11:00 LRN (Rec: 08/26/23 12:23 LRN [id number]) Out-Patient Physical Therapy Visit Information Visit Information Visit Type Progress Note Visit Start Time 11:00 Visit Stop Time 11:48 Total Visit Minutes 48 Visit Number 10 Number of ESE TEACHER Visits 1 Evaluation Information Evaluation Date 06/16/23 Precautions Precautions LATEX ALLERGY, arthritis, thyroid disorder PT-OP-B Current Condition Start: 06/02/23 18:16 Freq: Status: Active Protocol: Document 06/16/23 12:33 LRN (Rec: 06/16/23 13:28 LRN [id number]) Current Condition History of Current Condition Onset Date Last year worsened after return to gym exer Current Complaints Back pain and R LE pain. History of Current Condition For 25 yrs has had back pain and R hip pain. Variable onset of bilateral leg pain that comes only on one side at a time. States the pain moves around. Walking, standing has worsened her back and shooting pain in R hip on lateral side into the top/ lateral foot. Pain with twisting, like wiping after a BM. Pt reports being referred to PT after imaging comparison to see if her back was worsening. Prior Treatments and Tests X-Ray report 03/23/23: Grade 1 retrolisthesis of L3 on L4 and L2 on L3. Moderate, multilevel degenerative disc disease (pt reported it showed arthritis, impinging on nerves and R hip bursitis). MRI report 03/30/23: Overall similar findings when compared with the MRI dated November 03, 2016 (moderate to severe disc dessication and height loss). There was slightly increased reactive endplate changes at L2-3. No significant canal stenosis or foraminal narrowing of the lumbar spine. Pt reports in/out of PT for years. Last time 10-12 yrs ago had PT and was on an ex program, but then moved and took care of grandson from 8 months old until 8 yrs old. Future Testing and Treatments Planned Next MD visit is after 2 PT treatment visits. Developmental History Developmental History In 1999, bent over into car to pick something up and couldn' t move and straighten up. Pt was living in [place] at the time and was told not to lift >20#. Now when she lifts a gallon of milk she has tightness in the low back that warns her not to lift more. Treatment Goals Patient/Caregiver Goals Pt goal: To learn what she should avoid doing, Be placed on an exercise program. How to keep from aggrevating the LB to avoid increased pain . Current Functional Impairments (Reported) Functional Limitations- ADL's Standing or walking 1 hr or less (causes compaction of spine). Sit for a long time. Sometimes was wakes with pain in the hips and generally sore in hips waking up in morning. Avoids twisting as much as she can. Functional Limitations- Other ........... Vacuming results in pain. Personal Factors Other Personal Factors That May Effect Pt spouse sometimes needs Therapy/Recovery physical assist with tasks, pt has 25 yr history of LBP. PT-OP-C Subjective Start: 06/02/23 18:16 Freq: Status: Active Protocol: Document 08/26/23 11:00 LRN (Rec: 08/26/23 12:23 LRN [id number]) OP-PT Subjective Patient Comments Patient Comments said he could give pills or shots, but pt wanted to wait. States she is doing her hip stretches and is becoming more aware of proper body mechanics. Pt states getting up/down off floor is not a problem. Patient Questionnaires Oswestry Low Back Index Oswestry Score 17 Oswestry Impairment 1 to 19% Impaired (Score 1-19) OP-PT Pain Assessment Pain Assessment Grid Paper Pain Assessment Grid Completed Yes Location Low back Pain Location Details Lateral hips and R lateral leg Intensity 5 Description Sharp Frequency Intermittent PT-OP-H Neuro Start: 06/02/23 18:16 Freq: Status: Active Protocol: Document 06/16/23 12:33 LRN (Rec: 06/16/23 13:28 LRN [id number]) Sensation Evaluation Gross Sensation Gross Sensation WNL PT-OP-J Posture/Palpation/Skin Start: 06/02/23 18:16 Freq: Status: Active Protocol: Document 06/16/23 12:33 LRN (Rec: 06/16/23 13:28 LRN [id number]) Posture Evaluation Position Standing T-Spine Posture Increased Kyphosis L-Spine Posture Decreased Lordosis,Shifted Left Scapula Posture (R) Depressed Pelvis Posture (R) Iliac Crest Superior Comments Posture Comments Mild increased lordosis, protruding abdomen Palpation Assessment Location Sacrum Palpation Location Sacrum Palpation Findings Tenderness Palpation Details Sacrum in extension. Hips Palpation Location Gluteals Palpation Details R Gluteals - atrophy L Gluteals - Ms tightness Low back Palpation Location Paraspinals, Interspinous spaces L1 through S1 Palpation Findings Muscle Guarding,Tenderness PT-OP-K Range of Motion Start: 06/02/23 18:16 Freq: Status: Active Protocol: Document 08/16/23 10:30 LRN (Rec: 08/16/23 16:35 LRN [id number]) Hip Goniometric Range of Motion Hip Right Passive Testing Position Supine Straight Leg Raise 75 Comments L posterolateral trunk pain Left Passive Testing Position Supine Straight Leg Raise 70 Comments L posterolateral trunk pain PT-OP-L Special Tests Start: 06/02/23 18:16 Freq: Status: Active Protocol: Document 06/16/23 12:33 LRN (Rec: 06/16/23 13:28 LRN [id number]) Special Tests Lumbar Spine Special Tests Straight Leg Raise Test Results + R LE: 75 deg's. L LE: 65 deg's. Comments RLE: Pain in R posterior thigh and hip PT-OP-M Strength Start: 06/02/23 18:16 Freq: Status: Active Protocol: Document 08/26/23 11:00 LRN (Rec: 08/26/23 12:23 LRN [id number]) Hip Strength Hip Manual Muscle Testing Right Extension (S1) 3+ Fair+ Adduction 3+ Fair+ Comments Hip strength is generally 5/5 when cued to maintain neutral spine. Rotation not tested. Left Extension (S1) 3+ Fair+ Comments Hip strength is generally 5/5 when cued to maintain neutral spine. Rotation not tested. PT-OP-Q Treatments Start: 06/02/23 18:16 Freq: Status: Active Protocol: Document 08/26/23 11:00 LRN (Rec: 08/26/23 12:23 LRN [id number]) Therapeutic Exercises Supine Exercises NS/PF tight/hip flex Supine Exercise Name NS/PF/hip flex Side bilateral Reps/Minutes 5x Comments MMT of hip flexors; cuing for neutral Sciatic nerve glide Supine Exercise Name LE neural sciatic glide review Side bilateral Equipment Used grasp behind thigh Reps/Minutes 10 CCW AROM x 3 sets Comments Cued 3x on 1 leg at a time, + stretch w/ankle counterclockwise AROM Piriformis stretch Supine Exercise Name Piriformis stretch Side bilateral Resistance R>L Equipment Used opp LE straight Reps/Minutes 30 SH Comments Phys & v cuing needed to perform properly Fig 4 stretch Supine Exercise Name Fig 4 stretch Side bilateral Resistance R>L Reps/Minutes 30SH Comments Cuing for NS and proper postioining Prone Exercises NS/PF/hip ext Prone Exercise Name NS/PF/Hip Exty Side bilateral Reps/Minutes 5x each Comments MMT hip ext; cuing to keep NS from trunk rotating. Sidelying Exercises NS/PF/Hip AB & AD Sidelying Exercise Name NS/PF/Hip AB & AD w/much v. cuing. Side bilateral Reps/Minutes 5x each Comments MMT hip AB/AD's. Low elaina to lying on hip, modified hip AD ex x 2. Therapeutic Activity Therapeutic Activity Sitting posture training Name Quick Review Reps/Minutes 1' Comments Pt appears to have a good understanding of importance of proper posturing Sit<>supine transfer Name Sit<>supine transfer training quick review Reps/Minutes 1' Comments Much repetition of training needed for pt to understand how to perform log roll transfer to support and protect the low back. Self-Care/Home Management Treatment Education Patient Education Home Exercise Program Activities Self-Care/Home Management Activities Issued & reviewed HEP: NS/PF tightening with Hip flex, ext, AB, AD strengthening. PT-OP-T Assessment and Plan Start: 06/02/23 18:16 Freq: Status: Active Protocol: Document 08/26/23 11:00 LRN (Rec: 08/26/23 12:23 [facility] [id number]) Physical Therapy Assessment Rehab Potential Rehabilitation Potential Good Evaluation Complexity Number of Personal Factors/Comorbidities 1-2 Number of Body Systems Impaired 4 or More Clinical Presentation at Evaluation Evolving Impairments Impairments Activity Tolerance,Functional Activities,Pain,Posture,ROM, Soft Tissue Mobility,Strength, Transfers Other Impairments Limited lifting of 20# or greater. Goals Three Impairment Decreased hip strength Impairment R hip: Flex 3+/5, AB 4/5, AD 2/5, (ER/IR WNL). L hip: Flex 3+/5, AB & Ext 3 /5, AD 1/5, ER 3/5 (IR WNL) Short Term Goal (STG) Pt will be independent on a HEP of hip strengthening and mobility ex's. 07/29/23: added fig 4, piriformis stretch and sciatic nerve/active HS stretch R>L LE diminished radiating leg pain. 08/05/23: reviewed added last tx: LTR, piriformis, LE neural glides w/ AP with good response. 08/26/23: HEP: Hip flex, ext, AB, AD strengthening. STG Duration 5 wks (08/26/23) (08/26/23: MET GOAL) Senior Network Systems Engineer Goal (LTG) Improve hip strength to 4-/5 or greater in areas of weakness. 08/26/23: R hip Ext & AD is 3+ /5, otherwise 5/5. L hip Ext is 3+/5, otherwise 5/5. LTG Duration 10 wks (09/30/23) progressed 08/26/23 Two Impairment Decreased core strength and stability Impairment Pt limited in functional activities, especially motions including twisting. Short Term Goal (STG) Pt will be educated in movements and activities to avoid. 06/23/23: Pt educated in proper transfer sit<>supine and proper body mechanics. 06/27/23: Educated pt in proper transfer sit<>supine from L side of plint and in proper body mechanics for her activities of ironing, mopping and vacumming floors. 06/27/23: Educated pt in positions and movements to avoid and educated in hip hinging for activities. STG Duration 6 wks (07/31/23) (06/23/23: MET GOAL) Senior Living Goal (LTG) Pt will be able to maintain core stability with MMT of lower extremities to demonstrate improved core stability and strength. 08/05/23: REviewed added TA& Multifidus bridge- painfree today. 08/26/23: Pt able to maintain core stability with v cuing except for hip Ext (IR/ER not assessed) LTG Duration 10 wks (09/30/23) progressing 08/26/23 One Impairment Pt lacks appropriate self care HEP. Short Term Goal (STG) Pt will be educated in log roll transfers, proper body mechanics for ADLs, proper sitting/standing posture. 08/05/23: time spent body mechanics lifting groceries BUE at this time/clse to body and postural alignment squat as needed straight back hip hinge if needed, vacuuming/ sweeping wt shift- better understanding. 08/26/23: Reviewed proper log roll transfers, proper sitting /standing posture. STG Duration 6 wks (07/31/23) (06/23/23: MET GOAL) Senior Living Goal (LTG) Be placed on an exercise program of self care HEP for core strengthening, stabilization and mobility ex' s. 06/27/23: Core: HEP: Neutral spine 07/29/23: Core: Reviewed HEP: TA/multifidus and DL heel slides. 08/02/23: Mobility: added/ reviewed a self quadruped stretching cat/camel and child 's pose and UE/LE ext. Added resisted shld ext with core fac reported. 08/26/23: Core: HEP: NS/ PFtightening with Hip flex, ext, AB, AD strengthening. LTG Duration 10 wks (09/30/23) updated 08/02 Assessment Summary Assessment Pt is a 78 yo female who intially presented with + R PSLR and very limited mobility of the hips and trunk bilaterally with RLE symptoms consistent with R sciatic pain although she was +R PSLR. She now demonstrates improved core stability allowing her to demonstrate improved hip strength due to less pain on MMT. She is not consistent in proper body mechanics with mobility and has fair postural awareness for correct posturing. Her hip mobility was not assessed today, but she was able to demonstrate LE sciatic nerve glides with 90 deg's of hip flex for stretch in supine. The pt will benefit from skilled physical therapy for further postural awareness training, core stabilization and hip mobility /strengthening to minimize her sciatic pain onset. Physical Therapy Plan Frequency and Duration Frequency of Treatment 2x/Week Duration of treatment (weeks) 10 Plan of Care Start Date 07/22/23 Plan of Care End Date 09/30/23 Therapeutic Interventions Therapeutic Interventions Home Exercise Program,Joint Mobilizations,Manual Therapy, Neuromuscular Re-education, Self-Care/Home Management,Soft Tissue Mobilization, Therapeutic Activities, Therapeutic Exercises Modalities Cold Pack/Ice Massage,Electric Stimulation,Hot Packs Next Visit Focus/Plan Next Note Type Treatment Note Next Visit Plan Check hip rotation ROM & strength, check PSLR. Hold adding handout for HEP: LE neural glide-kick the head off until pt able to understand limit of performing . Progress slowly Ex for L2-L3 and L3-L4 extension, T/S extension, upper L/S and lower T/S stabilization. Manual: Gentle self mob for T /S (extension avoiding rotation), lumbar traction, STM as needed. Sacral balancing, occasional check for need of L/S traction due to disc dessication. Ex's: Trunk (disc dessication) and hip mobility (note: + R PSLR), Core (abdominals)/hip strengthening. Review as needed transfers & proper body mechanics. Modalities: Cryotherapy/MH/US POC: 2x/wk for 5 weeks core stab lumbar rehab.
--- NOTE | 2023-08-30 12:47 | PT.OTN ---
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/23) Other intervertebral disc degeneration, lumbar region (08/30/23) Radiculopathy, lumbar region (08/30/23) Low back pain, unspecified (08/30/23) Muscle weakness (generalized) (08/30/23) Physical Therapy Treatment Note PT-OP-A Visit Information Start: 06/02/23 18:16 Freq: Status: Active Protocol: Document 08/30/23 12:04 SP (Rec: 08/30/23 12:49 SP [id number]) Out-Patient Physical Therapy Visit Information Visit Information Visit Type Treatment Note Visit Start Time 12:04 Visit Stop Time 12:47 Total Visit Minutes 43 Visit Number 11 Number of NEW [employer] Visits 2 Evaluation Information Evaluation Date 06/16/23 Precautions Precautions LATEX ALLERGY, arthritis, thyroid disorder PT-OP-B Current Condition Start: 06/02/23 18:16 Freq: Status: Active Protocol: Document 06/16/23 12:33 LRN (Rec: 06/16/23 13:28 LRN [id number]) Current Condition History of Current Condition Onset Date Last year worsened after return to gym exer Current Complaints Back pain and R LE pain. History of Current Condition For 25 yrs has had back pain and R hip pain. Variable onset of bilateral leg pain that comes only on one side at a time. States the pain moves around. Walking, standing has worsened her back and shooting pain in R hip on lateral side into the top/ lateral foot. Pain with twisting, like wiping after a BM. Pt reports being referred to PT after imaging comparison to see if her back was worsening. Prior Treatments and Tests X-Ray report 03/23/23: Grade 1 retrolisthesis of L3 on L4 and L2 on L3. Moderate, multilevel degenerative disc disease (pt reported it showed arthritis, impinging on nerves and R hip bursitis). MRI report 03/30/23: Overall similar findings when compared with the MRI dated November 03, 2016 (moderate to severe disc dessication and height loss). There was slightly increased reactive endplate changes at L2-3. No significant canal stenosis or foraminal narrowing of the lumbar spine. Pt reports in/out of PT for years. Last time 10-12 yrs ago had PT and was on an ex program, but then moved and took care of grandson from 8 months old until 6 yrs old. Future Testing and Treatments Planned Next MD visit is after 2 PT treatment visits. Developmental History Developmental History In 1999, bent over into car to pick something up and couldn' t move and straighten up. Pt was living in [place] at the time and was told not to lift >20#. Now when she lifts a gallon of milk she has tightness in the low back that warns her not to lift more. Treatment Goals Patient/Caregiver Goals Pt goal: To learn what she should avoid doing, Be placed on an exercise program. How to keep from aggrevating the LB to avoid increased pain . Current Functional Impairments (Reported) Functional Limitations- ADL's Standing or walking 1 hr or less (causes compaction of spine). Sit for a long time. Sometimes was wakes with pain in the hips and generally sore in hips waking up in morning. Avoids twisting as much as she can. Functional Limitations- Other ........... Vacuming results in pain. Personal Factors Other Personal Factors That May Effect Pt spouse sometimes needs Therapy/Recovery physical assist with tasks, pt has 25 yr history of LBP. PT-OP-C Subjective Start: 06/02/23 18:16 Freq: Status: Active Protocol: Document 08/30/23 12:04 SP (Rec: 08/30/23 12:49 SP [id number]) OP-PT Subjective Patient Comments Patient Comments Pt reports trying to be more mindful of alignment and use of abdominals with activity. She wanted to take time for giving cuing feedback on floor positioning playing games with grandson, squat to get to grandson toys in low cabinet. She reported grandson is with her everyother weekend and was busy so didn't do as much stretching HEP as should have. PT-OP-H Neuro Start: 06/02/23 18:16 Freq: Status: Active Protocol: Document 06/16/23 12:33 LRN (Rec: 06/16/23 13:28 LRN [id number]) Sensation Evaluation Gross Sensation Gross Sensation WNL PT-OP-J Posture/Palpation/Skin Start: 06/02/23 18:16 Freq: Status: Active Protocol: Document 06/16/23 12:33 LRN (Rec: 06/16/23 13:28 LRN [id number]) Posture Evaluation Position Standing T-Spine Posture Increased Kyphosis L-Spine Posture Decreased Lordosis,Shifted Left Scapula Posture (R) Depressed Pelvis Posture (R) Iliac Crest Superior Comments Posture Comments Mild increased lordosis, protruding abdomen Palpation Assessment Location Sacrum Palpation Location Sacrum Palpation Findings Tenderness Palpation Details Sacrum in extension. Hips Palpation Location Gluteals Palpation Details R Gluteals - atrophy L Gluteals - Ms tightness Low back Palpation Location Paraspinals, Interspinous spaces L1 through S1 Palpation Findings Muscle Guarding,Tenderness PT-OP-K Range of Motion Start: 06/02/23 18:16 Freq: Status: Active Protocol: Document 08/16/23 10:30 LRN (Rec: 08/16/23 16:35 LRN [id number]) Hip Goniometric Range of Motion Hip Right Passive Testing Position Supine Straight Leg Raise 75 Comments L posterolateral trunk pain Left Passive Testing Position Supine Straight Leg Raise 70 Comments L posterolateral trunk pain PT-OP-L Special Tests Start: 06/02/23 18:16 Freq: Status: Active Protocol: Document 06/16/23 12:33 LRN (Rec: 06/16/23 13:28 LRN [id number]) Special Tests Lumbar Spine Special Tests Straight Leg Raise Test Results + R LE: 75 deg's. L LE: 65 deg's. Comments RLE: Pain in R posterior thigh and hip PT-OP-M Strength Start: 06/02/23 18:16 Freq: Status: Active Protocol: Document 08/26/23 11:00 LRN (Rec: 08/26/23 12:23 LRN [id number]) Hip Strength Hip Manual Muscle Testing Right Extension (S1) 3+ Fair+ Adduction 3+ Fair+ Comments Hip strength is generally 5/5 when cued to maintain neutral spine. Rotation not tested. Left Extension (S1) 3+ Fair+ Comments Hip strength is generally 5/5 when cued to maintain neutral spine. Rotation not tested. PT-OP-Q Treatments Start: 06/02/23 18:16 Freq: Status: Active Protocol: Document 08/30/23 12:04 SP (Rec: 08/30/23 12:49 SP [id number]) Therapeutic Exercises Supine Exercises TA/Leg lift Supine Exercise Name NS-TA/Leg lift Side bilateral Resistance therapist hand under lower ribcage Reps/Minutes 10x each Comments Extra time and tactile cues PPT toward table during activity. Fig 4 stretch Supine Exercise Name Fig 4 stretch Side bilateral Resistance R>L Reps/Minutes 30SH Comments Occ cuing for NS and proper postioning Prone Exercises NS/PF/hip ext Prone Exercise Name NS/PF/Hip Exty Side bilateral Equipment Used pelvis over pillows Reps/Minutes 8 reps each LE Comments cuing to keep NS from trunk rotating- good painfree Sidelying Exercises plank Sidelying Exercise Name on knees, hand & forearms- added to HEP Reps/Minutes 5 SH each on hand and forearms Comments Cued TA/PPT, Chin tuck CS alignment, serratus press- good form painfree side plank Sidelying Exercise Name Modified forearm/lat hip/thigh /knees Side bilateral Resistance (position play games with grandson) Equipment Used pillow under trunk Reps/Minutes 2 min Comments challenging- cues NS, TA, SPressunable lift- worked on scap/trunk alignment NS/PF/Hip AB & AD Sidelying Exercise Name NS/PF/Hip AB & AD w/much v. cuing. Side bilateral Resistance AROM Equipment Used Pillows under anterior/ posterior R hip for LLE ABd Reps/Minutes x10 Comments Low elaina to lying on R hip, modified hip AD ex x 2. Therapeutic Activity Therapeutic Activity on/off floor, 1/2 kneel, quadruped Name reaching items in back of cabinet close to floor Comments Cued hip hinge descend squat reach floor TA/ back alignment to 1/2 kneel hip hinge reach item close front cabinet, tripod/quadruped to allow back straight to reach further into back cabinet to put away/ items (grandson toy cabinet). Encouraged have 6-7y/o grandson to get/ put away toys himself best. 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 Improved performance, painfree reported just tiring leg muscles. Sidelie positioning Name 1. sidelying during hip abd 2. sidelying over pillow on forearm/elbow play Reps/Minutes 1' Comments 1. improved R hip comfort pillow support ant/posterior R hip to allow LLe ABD 2. pillow under upper trunk and laying on arm better trunk alignment tolerance to allow play game with grandson. Sitting posture training Name spinal alignment review Reps/Minutes 3' Comments good elongated posture self corrections in chair. started seated on floor- NS style sit, TA- mindful reaching outside CHRISTOPHER stressing back. PT-OP-T Assessment and Plan Start: 06/02/23 18:16 Freq: Status: Active Protocol: Document 08/30/23 12:04 SP (Rec: 08/30/23 12:49 SP [id number]) Physical Therapy Assessment Goals Three Impairment Decreased hip strength Impairment R hip: Flex 3+/5, AB 4/5, AD 2/5, (ER/IR WNL). L hip: Flex 3+/5, AB & Ext 3 /5, AD 1/5, ER 3/5 (IR WNL) Short Term Goal (STG) Pt will be independent on a HEP of hip strengthening and mobility ex's. 07/29/23: added fig 4, piriformis stretch and sciatic nerve/active HS stretch R>L LE diminished radiating leg pain. 08/05/23: reviewed added last tx: LTR, piriformis, LE neural glides w/ AP with good response. 08/26/23: HEP: Hip flex, ext, AB, AD strengthening. STG Duration 5 wks (08/26/23) (08/26/23: MET GOAL) Adjunct Mathematics Instructor Goal (LTG) Improve hip strength to 4-/5 or greater in areas of weakness. 08/26/23: R hip Ext & AD is 3+ /5, otherwise 5/5. L hip Ext is 3+/5, otherwise 5/5. LTG Duration 10 wks (09/30/23) progressed 08/26/23 Two Impairment Decreased core strength and stability Impairment Pt limited in functional activities, especially motions including twisting. Short Term Goal (STG) Pt will be educated in movements and activities to avoid. 06/23/23: Pt educated in proper transfer sit<>supine and proper body mechanics. 06/27/23: Educated pt in proper transfer sit<>supine from L side of plinth and in proper body mechanics for her activities of ironing, mopping and vacumming floors. 06/27/23: Educated pt in positions and movements to avoid and educated in hip hinging for activities. STG Duration 6 wks (07/31/23) (06/23/23: MET GOAL) Adjunct Mathematics Instructor Goal (LTG) Pt will be able to maintain core stability with MMT of lower extremities to demonstrate improved core stability and strength. 08/05/23: REviewed added TA& Multifidus bridge- painfree today. 08/26/23: Pt able to maintain core stability with v cuing except for hip Ext (IR/ER not assessed) LTG Duration 10 wks (09/30/23) progressing 08/26/23 One Impairment Pt lacks appropriate self care HEP. Short Term Goal (STG) Pt will be educated in log roll transfers, proper body mechanics for ADLs, proper sitting/standing posture. 08/05/23: time spent body mechanics lifting groceries BUE at this time/clse to body and postural alignment squat as needed straight back hip hinge if needed, vacuuming/ sweeping wt shift- better understanding. 08/26/23: Reviewed proper log roll transfers, proper sitting /standing posture. STG Duration 6 wks (07/31/23) (06/23/23: MET GOAL) Adjunct Mathematics Instructor Goal (LTG) Be placed on an exercise program of self care HEP for core strengthening, stabilization and mobility ex' s. 06/27/23: Core: HEP: Neutral spine 07/29/23: Core: Reviewed HEP: TA/multifidus and DL heel slides. 08/02/23: Mobility: added/ reviewed a self quadruped stretching cat/camel and child 's pose and UE/LE ext. Added resisted shld ext with core fac reported. 08/26/23: Core: HEP: NS/ PFtightening with Hip flex, ext, AB, AD strengthening. 08/30/23: added forearm/ knee plank to HEP LTG Duration 10 wks (09/30/23) updated 09/12 Assessment Summary Assessment Pt improved PPT and TA engagement during supine and prone exercises with Min tactile cues maintain PPT/NS. Noted carryover into squat picking up cones and 1/2 kneel & quadruped activities for spinal alignment and support. Pt reports decrease back tension/strain when makes those corrections. Good response to past HEP review: plank forearms & on hands for core strengthening, discomfort side sit but better ed sidelying over pillow to allow play games on floor with rosibel. Physical Therapy Plan Frequency and Duration Frequency of Treatment 2x/Week Duration of treatment (weeks) 10 Plan of Care Start Date 07/22/23 Plan of Care End Date 09/30/23 Therapeutic Interventions Therapeutic Interventions Home Exercise Program,Joint Mobilizations,Manual Therapy, Neuromuscular Re-education, Self-Care/Home Management,Soft Tissue Mobilization, Therapeutic Activities, Therapeutic Exercises Modalities Cold Pack/Ice Massage,Electric Stimulation,Hot Packs Next Visit Focus/Plan Next Note Type Treatment Note Next Visit Plan REview floor positioning sit/ sidelying for playing with grandson on floor. recheck prone hip ext HEP. Check hip rotation ROM & strength, check PSLR. Hold adding handout for HEP: LE neural glide-kick the head off until pt able to understand limit of performing . Progress slowly Ex for L2-L3 and L3-L4 extension, T/S extension, upper L/S and lower T/S stabilization. Manual: Gentle self mob for T /S (extension avoiding rotation), lumbar traction, STM as needed. Sacral balancing, occasional check for need of L/S traction due to disc dessication. Ex's: Trunk (disc dessication) and hip mobility (note: + R PSLR), Core (abdominals)/hip strengthening. Review as needed transfers & proper body mechanics. Modalities: Cryotherapy/MH/US POC: 2x/wk for 5 weeks core stab lumbar rehab.
--- NOTE | 2023-09-02 12:47 | PT.OTN ---
Current Diagnoses Other chronic pain (09/02/23) Spondylosis without myelopathy or radiculopathy, lumbar region (09/02/23) Other intervertebral disc degeneration, lumbar region (09/02/23) Radiculopathy, lumbar region (09/02/23) Low back pain, unspecified (09/02/23) Muscle weakness (generalized) (09/02/23) Physical Therapy Treatment Note PT-OP-A Visit Information Start: 06/02/23 18:16 Freq: Status: Active Protocol: Document 09/02/23 12:17 SP (Rec: 09/02/23 12:49 SP [id number]) Out-Patient Physical Therapy Visit Information Visit Information Visit Type Treatment Note Visit Start Time 12:04 Visit Stop Time 12:47 Total Visit Minutes 43 Visit Number 12 Number of MUSIC THEORY PROFESSOR Visits 3 Evaluation Information Evaluation Date 06/16/23 Precautions Precautions LATEX ALLERGY, arthritis, thyroid disorder PT-OP-B Current Condition Start: 06/02/23 18:16 Freq: Status: Active Protocol: Document 06/16/23 12:33 LRN (Rec: 06/16/23 13:28 LRN [id number]) Current Condition History of Current Condition Onset Date Last year worsened after return to gym exer Current Complaints Back pain and R LE pain. History of Current Condition For 25 yrs has had back pain and R hip pain. Variable onset of bilateral leg pain that comes only on one side at a time. States the pain moves around. Walking, standing has worsened her back and shooting pain in R hip on lateral side into the top/ lateral foot. Pain with twisting, like wiping after a BM. Pt reports being referred to PT after imaging comparison to see if her back was worsening. Prior Treatments and Tests X-Ray report 03/23/23: Grade 1 retrolisthesis of L3 on L4 and L2 on L3. Moderate, multilevel degenerative disc disease (pt reported it showed arthritis, impinging on nerves and R hip bursitis). MRI report 03/30/23: Overall similar findings when compared with the MRI dated November 03, 2016 (moderate to severe disc dessication and height loss). There was slightly increased reactive endplate changes at L2-3. No significant canal stenosis or foraminal narrowing of the lumbar spine. Pt reports in/out of PT for years. Last time 10-12 yrs ago had PT and was on an ex program, but then moved and took care of grandson from 8 months old until 6 yrs old. Future Testing and Treatments Planned Next MD visit is after 2 PT treatment visits. Developmental History Developmental History In 1999, bent over into car to pick something up and couldn' t move and straighten up. Pt was living in [place] at the time and was told not to lift >20#. Now when she lifts a gallon of milk she has tightness in the low back that warns her not to lift more. Treatment Goals Patient/Caregiver Goals Pt goal: To learn what she should avoid doing, Be placed on an exercise program. How to keep from aggrevating the LB to avoid increased pain . Current Functional Impairments (Reported) Functional Limitations- ADL's Standing or walking 1 hr or less (causes compaction of spine). Sit for a long time. Sometimes was wakes with pain in the hips and generally sore in hips waking up in morning. Avoids twisting as much as she can. Functional Limitations- Other ........... Vacuming results in pain. Personal Factors Other Personal Factors That May Effect Pt spouse sometimes needs Therapy/Recovery physical assist with tasks, pt has 25 yr history of LBP. PT-OP-C Subjective Start: 06/02/23 18:16 Freq: Status: Active Protocol: Document 09/02/23 12:17 SP (Rec: 09/02/23 12:49 SP [id number]) OP-PT Subjective Patient Comments Patient Comments Pt reports having some pain in R buttocks coming in. She stated a small pain in medial L ankle woke her up in the night. Tried changing positions and eventually went away. She states doing the piriformis stretch seated still radiates pain down lateral R leg to ankle, so stopped. She found a booklet from a previous PT that gave a progression in core/LE exercises, and getting on/off floor and does have things learned here. She wants to know what sequence of activities of HEP should doing . PT-OP-H Neuro Start: 06/02/23 18:16 Freq: Status: Active Protocol: Document 06/16/23 12:33 LRN (Rec: 06/16/23 13:28 LRN [id number]) Sensation Evaluation Gross Sensation Gross Sensation WNL PT-OP-J Posture/Palpation/Skin Start: 06/02/23 18:16 Freq: Status: Active Protocol: Document 06/16/23 12:33 LRN (Rec: 06/16/23 13:28 LRN [id number]) Posture Evaluation Position Standing T-Spine Posture Increased Kyphosis L-Spine Posture Decreased Lordosis,Shifted Left Scapula Posture (R) Depressed Pelvis Posture (R) Iliac Crest Superior Comments Posture Comments Mild increased lordosis, protruding abdomen Palpation Assessment Location Sacrum Palpation Location Sacrum Palpation Findings Tenderness Palpation Details Sacrum in extension. Hips Palpation Location Gluteals Palpation Details R Gluteals - atrophy L Gluteals - Ms tightness Low back Palpation Location Paraspinals, Interspinous spaces L1 through S1 Palpation Findings Muscle Guarding,Tenderness PT-OP-K Range of Motion Start: 06/02/23 18:16 Freq: Status: Active Protocol: Document 08/16/23 10:30 LRN (Rec: 08/16/23 16:35 LRN [id number]) Hip Goniometric Range of Motion Hip Right Passive Testing Position Supine Straight Leg Raise 75 Comments L posterolateral trunk pain Left Passive Testing Position Supine Straight Leg Raise 70 Comments L posterolateral trunk pain PT-OP-L Special Tests Start: 06/02/23 18:16 Freq: Status: Active Protocol: Document 06/16/23 12:33 LRN (Rec: 06/16/23 13:28 LRN [id number]) Special Tests Lumbar Spine Special Tests Straight Leg Raise Test Results + R LE: 75 deg's. L LE: 65 deg's. Comments RLE: Pain in R posterior thigh and hip PT-OP-M Strength Start: 06/02/23 18:16 Freq: Status: Active Protocol: Document 08/26/23 11:00 LRN (Rec: 08/26/23 12:23 LRN [id number]) Hip Strength Hip Manual Muscle Testing Right Extension (S1) 3+ Fair+ Adduction 3+ Fair+ Comments Hip strength is generally 5/5 when cued to maintain neutral spine. Rotation not tested. Left Extension (S1) 3+ Fair+ Comments Hip strength is generally 5/5 when cued to maintain neutral spine. Rotation not tested. PT-OP-Q Treatments Start: 06/02/23 18:16 Freq: Status: Active Protocol: Document 09/02/23 12:17 SP (Rec: 09/02/23 12:49 SP [id number]) Therapeutic Exercises Supine Exercises self traction Supine Exercise Name BLEs over portable table Side bilateral Equipment Used portable bench Comments good feedback response back gentle traction TA/Leg lift Supine Exercise Name NS-TA/Leg lift Side bilateral Resistance therapist hand under lower ribcage Reps/Minutes 10x each Comments cued not need lift higher than 12 - TA/braced bridge Supine Exercise Name TA/braced bridge - doing HEP Side left Reps/Minutes 10x lifts w/o pain Comments good TA/ NS/ multifidus. Sciatic nerve glide Supine Exercise Name LE neural sciatic glide review Side bilateral Equipment Used grasp behind thigh Reps/Minutes 10 CCW AROM x 3 sets Comments cued ankle mov't, w/ankle counterclockwise AROM- light tired back R- no pn Piriformis stretch Supine Exercise Name Piriformis stretch- told do 1st then fig 4 Side bilateral Resistance R>L Equipment Used opp LE straight Reps/Minutes 30 SH Comments good form demonstrated. Fig 4 stretch Supine Exercise Name Fig 4 stretch Side bilateral Resistance R>L Reps/Minutes 30SH Comments Occ cuing for NS and proper postioning Prone Exercises NS/PF/hip ext Prone Exercise Name NS/PF/Hip Ext Side bilateral Equipment Used pelvis over 2 pillows Reps/Minutes 8 reps each LE Comments Review- keep NS from trunk rotating- good painfree Sidelying Exercises plank Sidelying Exercise Name on knees, hand & forearms- added to HEP Reps/Minutes 5 SH each on hand and forearms Comments Cued TA/PPT, Chin tuck CS alignment, serratus press- good form painfree NS/PF/Hip AB & AD Sidelying Exercise Name NS/PF/Hip AB & AD w/much v. cuing. Side bilateral Resistance AROM Equipment Used Pillows under anterior/ posterior R hip for LLE ABd Reps/Minutes x10 Comments Low elaina to lying on R hip, modified hip AD ex x 2. Other Exercises cat camel Other Exercise Name 08/02/23 HEP reviewed Reps/Minutes x10 Comments good response Manual Therapy Treatment Manual Traction Lumbar Details Single Long axis LE pull Body Position Hooklying Reps/Duration R>L (more tension on R than L) Comments reports decrease back/ hip tension- can do at home Self-Care/Home Management Treatment Education Other Education Some time spent verbal reviewing bound core/LE progression HEP has from previous PT, some already doing in PT (lower level of progression). PT-OP-T Assessment and Plan Start: 06/02/23 18:16 Freq: Status: Active Protocol: Document 09/02/23 12:17 SP (Rec: 09/02/23 12:49 SP [id number]) Physical Therapy Assessment Goals Three Impairment Decreased hip strength Impairment R hip: Flex 3+/5, AB 4/5, AD 2/5, (ER/IR WNL). L hip: Flex 3+/5, AB & Ext 3 /5, AD 1/5, ER 3/5 (IR WNL) Short Term Goal (STG) Pt will be independent on a HEP of hip strengthening and mobility ex's. 07/29/23: added fig 4, piriformis stretch and sciatic nerve/active HS stretch R>L LE diminished radiating leg pain. 08/05/23: reviewed added last tx: LTR, piriformis, LE neural glides w/ AP with good response. 08/26/23: HEP: Hip flex, ext, AB, AD strengthening. STG Duration 5 wks (08/26/23) (08/26/23: MET GOAL) Long-Term Goal (LTG) Improve hip strength to 4-/5 or greater in areas of weakness. 08/26/23: R hip Ext & AD is 3+ /5, otherwise 5/5. L hip Ext is 3+/5, otherwise 5/5. 09/02/23: reviewed added 08/30 prong LE ext AROM. LTG Duration 10 wks (09/30/23) progressed 09/02/23 Two Impairment Decreased core strength and stability Impairment Pt limited in functional activities, especially motions including twisting. Short Term Goal (STG) Pt will be educated in movements and activities to avoid. 06/23/23: Pt educated in proper transfer sit<>supine and proper body mechanics. 06/27/23: Educated pt in proper transfer sit<>supine from L side of plinth and in proper body mechanics for her activities of ironing, mopping and vacumming floors. 06/27/23: Educated pt in positions and movements to avoid and educated in hip hinging for activities. STG Duration 6 wks (07/31/23) (06/23/23: MET GOAL) Long-Term Goal (LTG) Pt will be able to maintain core stability with MMT of lower extremities to demonstrate improved core stability and strength. 08/05/23: REviewed added TA& Multifidus bridge- painfree today. 08/26/23: Pt able to maintain core stability with v cuing except for hip Ext (IR/ER not assessed) LTG Duration 10 wks (09/30/23) progressing 08/26/23 One Impairment Pt lacks appropriate self care HEP. Short Term Goal (STG) Pt will be educated in log roll transfers, proper body mechanics for ADLs, proper sitting/standing posture. 08/05/23: time spent body mechanics lifting groceries BUE at this time/clse to body and postural alignment squat as needed straight back hip hinge if needed, vacuuming/ sweeping wt shift- better understanding. 08/26/23: Reviewed proper log roll transfers, proper sitting /standing posture. 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 06/27/23: Core: HEP: Neutral spine 07/29/23: Core: Reviewed HEP: TA/multifidus and DL heel slides. 08/02/23: Mobility: added/ reviewed a self quadruped stretching cat/camel and child 's pose and UE/LE ext. Added resisted shld ext with core fac reported. 08/26/23: Core: HEP: NS/ PFtightening with Hip flex, ext, AB, AD strengthening. 08/30/23: added forearm/ knee plank to HEP LTG Duration 10 wks (09/30/23) updated 09/12 Assessment Summary Assessment Tx focused on HEP review. Educational cuing for TA/NS during supine HEP (SLR, bridge ) with improved decrease back recruitment. Improved decrease R leg radiating pain post LE sciatic nerve glide, manual long axix pull traction ( stated can help do), self traction hooklying BLE over elevated bench. She report less pain in back leaving. Physical Therapy Plan Frequency and Duration Frequency of Treatment 2x/Week Duration of treatment (weeks) 10 Plan of Care Start Date 07/22/23 Plan of Care End Date 09/30/23 Therapeutic Interventions Therapeutic Interventions Home Exercise Program,Joint Mobilizations,Manual Therapy, Neuromuscular Re-education, Self-Care/Home Management,Soft Tissue Mobilization, Therapeutic Activities, Therapeutic Exercises Modalities Cold Pack/Ice Massage,Electric Stimulation,Hot Packs Next Visit Focus/Plan Next Note Type Treatment Note Next Visit Plan REview floor positioning sit/ sidelying for playing with grandson on floor. If ok- add handout for HEP: LE neural glide-kick the head off until pt able to understand limit of performing. Check hip rotation ROM & strength, check PSLR. Progress slowly Ex for L2-L3 and L3-L4 extension, T/S extension, upper L/S and lower T/S stabilization. Manual: Gentle self mob for T /S (extension avoiding rotation), lumbar traction, STM as needed. Sacral balancing, occasional check for need of L/S traction due to disc dessication. Ex's: Trunk (disc dessication) and hip mobility (note: + R PSLR), Core (abdominals)/hip strengthening. Review as needed transfers & proper body mechanics. Modalities: Cryotherapy/MH/US POC: 2x/wk for 5 weeks core stab lumbar rehab.
--- NOTE | 2023-09-06 13:47 | PT.OTN ---
Current Diagnoses Other chronic pain (09/06/23) Spondylosis without myelopathy or radiculopathy, lumbar region (09/06/23) Other intervertebral disc degeneration, lumbar region (09/06/23) Radiculopathy, lumbar region (09/06/23) Low back pain, unspecified (09/06/23) Muscle weakness (generalized) (09/06/23) Physical Therapy Treatment Note PT-OP-A Visit Information Start: 06/02/23 18:16 Freq: Status: Active Protocol: Document 09/06/23 13:05 SP (Rec: 09/06/23 14:10 SP [id number]) Out-Patient Physical Therapy Visit Information Visit Information Visit Type Treatment Note Visit Note therapist 5 min late due to staff mtg. Visit Start Time 13:05 Visit Stop Time 13:47 Total Visit Minutes 42 Visit Number 13 Number of CERTIFIER Visits 4 Evaluation Information Evaluation Date 06/16/23 Precautions Precautions LATEX ALLERGY, arthritis, thyroid disorder PT-OP-B Current Condition Start: 06/02/23 18:16 Freq: Status: Active Protocol: Document 06/16/23 12:33 LRN (Rec: 06/16/23 13:28 LRN [id number]) Current Condition History of Current Condition Onset Date Last year worsened after return to gym exer Current Complaints Back pain and R LE pain. History of Current Condition For 25 yrs has had back pain and R hip pain. Variable onset of bilateral leg pain that comes only on one side at a time. States the pain moves around. Walking, standing has worsened her back and shooting pain in R hip on lateral side into the top/ lateral foot. Pain with twisting, like wiping after a BM. Pt reports being referred to PT after imaging comparison to see if her back was worsening. Prior Treatments and Tests X-Ray report 03/23/23: Grade 1 retrolisthesis of L3 on L4 and L2 on L3. Moderate, multilevel degenerative disc disease (pt reported it showed arthritis, impinging on nerves and R hip bursitis). MRI report 03/30/23: Overall similar findings when compared with the MRI dated November 03, 2016 (moderate to severe disc dessication and height loss). There was slightly increased reactive endplate changes at L2-3. No significant canal stenosis or foraminal narrowing of the lumbar spine. Pt reports in/out of PT for years. Last time 10-12 yrs ago had PT and was on an ex program, but then moved and took care of grandson from 8 months old until 6 yrs old. Future Testing and Treatments Planned Next MD visit is after 2 PT treatment visits. Developmental History Developmental History In 1999, bent over into car to pick something up and couldn' t move and straighten up. Pt was living in [place] at the time and was told not to lift >20#. Now when she lifts a gallon of milk she has tightness in the low back that warns her not to lift more. Treatment Goals Patient/Caregiver Goals Pt goal: To learn what she should avoid doing, Be placed on an exercise program. How to keep from aggrevating the LB to avoid increased pain . Current Functional Impairments (Reported) Functional Limitations- ADL's Standing or walking 1 hr or less (causes compaction of spine). Sit for a long time. Sometimes was wakes with pain in the hips and generally sore in hips waking up in morning. Avoids twisting as much as she can. Functional Limitations- Other ........... Vacuming results in pain. Personal Factors Other Personal Factors That May Effect Pt spouse sometimes needs Therapy/Recovery physical assist with tasks, pt has 25 yr history of LBP. PT-OP-C Subjective Start: 06/02/23 18:16 Freq: Status: Active Protocol: Document 09/06/23 13:05 SP (Rec: 09/06/23 14:10 SP [id number]) OP-PT Subjective Patient Comments Patient Comments Pt reports brought typed up sequence of ex performs at home. Good progress of ex painfree. Pt reports the self suipne traction and did need to do. She didnt' have grandson this past weekend so not having to get on floor as much. Able to PT-OP-H Neuro Start: 06/02/23 18:16 Freq: Status: Active Protocol: Document 06/16/23 12:33 LRN (Rec: 06/16/23 13:28 LRN [id number]) Sensation Evaluation Gross Sensation Gross Sensation WNL PT-OP-J Posture/Palpation/Skin Start: 06/02/23 18:16 Freq: Status: Active Protocol: Document 06/16/23 12:33 LRN (Rec: 06/16/23 13:28 LRN [id number]) Posture Evaluation Position Standing T-Spine Posture Increased Kyphosis L-Spine Posture Decreased Lordosis,Shifted Left Scapula Posture (R) Depressed Pelvis Posture (R) Iliac Crest Superior Comments Posture Comments Mild increased lordosis, protruding abdomen Palpation Assessment Location Sacrum Palpation Location Sacrum Palpation Findings Tenderness Palpation Details Sacrum in extension. Hips Palpation Location Gluteals Palpation Details R Gluteals - atrophy L Gluteals - Ms tightness Low back Palpation Location Paraspinals, Interspinous spaces L1 through S1 Palpation Findings Muscle Guarding,Tenderness PT-OP-K Range of Motion Start: 06/02/23 18:16 Freq: Status: Active Protocol: Document 08/16/23 10:30 LRN (Rec: 08/16/23 16:35 LRN [id number]) Hip Goniometric Range of Motion Hip Right Passive Testing Position Supine Straight Leg Raise 75 Comments L posterolateral trunk pain Left Passive Testing Position Supine Straight Leg Raise 70 Comments L posterolateral trunk pain PT-OP-L Special Tests Start: 06/02/23 18:16 Freq: Status: Active Protocol: Document 06/16/23 12:33 LRN (Rec: 06/16/23 13:28 LRN [id number]) Special Tests Lumbar Spine Special Tests Straight Leg Raise Test Results + R LE: 75 deg's. L LE: 65 deg's. Comments RLE: Pain in R posterior thigh and hip PT-OP-M Strength Start: 06/02/23 18:16 Freq: Status: Active Protocol: Document 08/26/23 11:00 LRN (Rec: 08/26/23 12:23 LRN [id number]) Hip Strength Hip Manual Muscle Testing Right Extension (S1) 3+ Fair+ Adduction 3+ Fair+ Comments Hip strength is generally 5/5 when cued to maintain neutral spine. Rotation not tested. Left Extension (S1) 3+ Fair+ Comments Hip strength is generally 5/5 when cued to maintain neutral spine. Rotation not tested. PT-OP-Q Treatments Start: 06/02/23 18:16 Freq: Status: Active Protocol: Document 09/06/23 13:05 SP (Rec: 09/06/23 14:10 SP [id number]) Therapeutic Exercises Supine Exercises bug Supine Exercise Name added to HEP (pic from self binder given to her in past progression use) Side bilateral Resistance BUE/ BLE ext (LE approx 45 deg ) Reps/Minutes 5 reps x2 Comments ed/cue for reach range allowance can maintain TA/NS needed back pnfree self traction Supine Exercise Name BLEs over portable table Side bilateral Equipment Used discussed not performed Comments doing when needed TA/braced bridge Supine Exercise Name TA/braced bridge - reviewed Side left Reps/Minutes 20x painfree Comments good from with TA/ NS/ multifidus NS/Heel slides Supine Exercise Name Brandon heels slides Side bilateral Equipment Used parashute, pillow case Reps/Minutes 10 x2 sets Comments improved TA/ NS, cued CS/NS, tongue on roof mouth- no jaw/ neck recruit Sidelying Exercises NS/PF/Hip AB & AD Sidelying Exercise Name NS/PF/Hip AB & AD improved, occasional cue with inquiries Side bilateral Resistance AROM Equipment Used opp LE bent and straight Reps/Minutes 2x10 each Comments good form, self TA/NS corrections Other Exercises bird dog Other Exercise Name UE/ LE ext-reviewed Side bilateral Reps/Minutes x 5 reps each side- 2 SH for balance/strength awareness form Comments cued: CS/NS, reach UE& LE, slower, level shld/pelvis, lift higher if elaina Self-Care/Home Management Treatment Education Other Education Short time spent TA/ NS needed during activities, she is improving self corrections with HEP with not pain but LB stiffness and tiring during HEP today. Added bug. PT-OP-T Assessment and Plan Start: 06/02/23 18:16 Freq: Status: Active Protocol: Document 09/06/23 13:05 SP (Rec: 09/06/23 14:10 SP [id number]) Physical Therapy Assessment Goals Three Impairment Decreased hip strength Impairment R hip: Flex 3+/5, AB 4/5, AD 2/5, (ER/IR WNL). L hip: Flex 3+/5, AB & Ext 3 /5, AD 1/5, ER 3/5 (IR WNL) Short Term Goal (STG) Pt will be independent on a HEP of hip strengthening and mobility ex's. 07/29/23: added fig 4, piriformis stretch and sciatic nerve/active HS stretch R>L LE diminished radiating leg pain. 08/05/23: reviewed added last tx: LTR, piriformis, LE neural glides w/ AP with good response. 08/26/23: HEP: Hip flex, ext, AB, AD strengthening. STG Duration 5 wks (08/26/23) (08/26/23: MET GOAL) Oncology Admin Goal (LTG) Improve hip strength to 4-/5 or greater in areas of weakness. 08/26/23: R hip Ext & AD is 3+ /5, otherwise 5/5. L hip Ext is 3+/5, otherwise 5/5. 09/02/23: reviewed added 08/30 prong LE ext AROM. 09/06/23: improved hip abd/add form/less corrections need awareness, added bug. LTG Duration 10 wks (09/30/23) progressed 09/06/23 Two Impairment Decreased core strength and stability Impairment Pt limited in functional activities, especially motions including twisting. Short Term Goal (STG) Pt will be educated in movements and activities to avoid. 06/23/23: Pt educated in proper transfer sit<>supine and proper body mechanics. 06/27/23: Educated pt in proper transfer sit<>supine from L side of plinth and in proper body mechanics for her activities of ironing, mopping and vacumming floors. 06/27/23: Educated pt in positions and movements to avoid and educated in hip hinging for activities. STG Duration 6 wks (07/31/23) (06/23/23: MET GOAL) Oncology Admin Goal (LTG) Pt will be able to maintain core stability with MMT of lower extremities to demonstrate improved core stability and strength. 08/05/23: REviewed added TA& Multifidus bridge- painfree today. 08/26/23: Pt able to maintain core stability with v cuing except for hip Ext (IR/ER not assessed) 09/06/23: improved TA/ NS during hip abd/ add sidelying, added bug. LTG Duration 10 wks (09/30/23) progressing 09/06/23 One Impairment Pt lacks appropriate self care HEP. Short Term Goal (STG) Pt will be educated in log roll transfers, proper body mechanics for ADLs, proper sitting/standing posture. 08/05/23: time spent body mechanics lifting groceries BUE at this time/clse to body and postural alignment squat as needed straight back hip hinge if needed, vacuuming/ sweeping wt shift- better understanding. 08/26/23: Reviewed proper log roll transfers, proper sitting /standing posture. 09/06/23: good Log roll. STG Duration 6 wks (07/31/23) (06/23/23: MET GOAL 09/06/23 progression) Oncology Admin Goal (LTG) Be placed on an exercise program of self care HEP for core strengthening, stabilization and mobility ex' s. 06/27/23: Core: HEP: Neutral spine 07/29/23: Core: Reviewed HEP: TA/multifidus and DL heel slides. 08/02/23: Mobility: added/ reviewed a self quadruped stretching cat/camel and child 's pose and UE/LE ext. Added resisted shld ext with core fac reported. 08/26/23: Core: HEP: NS/ PFtightening with Hip flex, ext, AB, AD strengthening. 08/30/23: added forearm/ knee plank to HEP 09/06/23: added bug. Need review seated and quadruped mechanics playing with Rexly future appt. LTG Duration 10 wks (09/30/23) updated Assessment Summary Assessment Pt demosntrated improved self TA/NS corrections needed during tx, occasional feedback from CERTIFIER as requested for proper form. Pt reports R LB muscle stiffness end tx, will stretch when gets home, feels good with strengthening gained with PT. Pt would benefit from continued skilled PT for carryover on floor positioning with rosibel playing games/ cleaning up help with his toys and applying functional strengthening mobility so doesn't have think all the time if alignment correction needed. Physical Therapy Plan Frequency and Duration Frequency of Treatment 2x/Week Duration of treatment (weeks) 10 Plan of Care Start Date 07/22/23 Plan of Care End Date 09/30/23 Therapeutic Interventions Therapeutic Interventions Home Exercise Program,Joint Mobilizations,Manual Therapy, Neuromuscular Re-education, Self-Care/Home Management,Soft Tissue Mobilization, Therapeutic Activities, Therapeutic Exercises Modalities Cold Pack/Ice Massage,Electric Stimulation,Hot Packs Next Visit Focus/Plan Next Note Type Treatment Note Next Visit Plan REview planks, sit/sidelying/ quadruped spinal alignment check for playing with Rexly on floor. If ok- add handout for HEP: LE neural glide-kick the head off until pt able to understand limit of performing. Check hip rotation ROM & strength, check PSLR. Progress slowly Ex for L2-L3 and L3-L4 extension, T/S extension, upper L/S and lower T/S stabilization. Manual: Gentle self mob for T /S (extension avoiding rotation), lumbar traction, STM as needed. Sacral balancing, occasional check for need of L/S traction due to disc dessication. Ex's: Trunk (disc dessication) and hip mobility (note: + R PSLR) POC: 2x/wk for 5 weeks core stab lumbar rehab.
--- NOTE | 2023-09-09 12:20 | PT.OTN ---
Current Diagnoses Other chronic pain (09/09/23) Spondylosis without myelopathy or radiculopathy, lumbar region (09/09/23) Other intervertebral disc degeneration, lumbar region (09/09/23) Radiculopathy, lumbar region (09/09/23) Low back pain, unspecified (09/09/23) Muscle weakness (generalized) (09/09/23) Physical Therapy Treatment Note PT-OP-A Visit Information Start: 06/02/23 18:16 Freq: Status: Active Protocol: Document 09/09/23 11:22 LRN (Rec: 09/09/23 12:19 LRN [id number]) Out-Patient Physical Therapy Visit Information Visit Information Visit Type Treatment Note Visit Start Time 11:22 Visit Stop Time 12:03 Total Visit Minutes 41 Evaluation Information Evaluation Date 06/16/23 Precautions Precautions LATEX ALLERGY, arthritis, thyroid disorder PT-OP-B Current Condition Start: 06/02/23 18:16 Freq: Status: Active Protocol: Document 06/16/23 12:33 LRN (Rec: 06/16/23 13:28 LRN [id number]) Current Condition History of Current Condition Onset Date Last year worsened after return to gym exer Current Complaints Back pain and R LE pain. History of Current Condition For 25 yrs has had back pain and R hip pain. Variable onset of bilateral leg pain that comes only on one side at a time. States the pain moves around. Walking, standing has worsened her back and shooting pain in R hip on lateral side into the top/ lateral foot. Pain with twisting, like wiping after a BM. Pt reports being referred to PT after imaging comparison to see if her back was worsening. Prior Treatments and Tests X-Ray report 03/23/23: Grade 1 retrolisthesis of L3 on L4 and L2 on L3. Moderate, multilevel degenerative disc disease (pt reported it showed arthritis, impinging on nerves and R hip bursitis). MRI report 03/30/23: Overall similar findings when compared with the MRI dated November 03, 2016 (moderate to severe disc dessication and height loss). There was slightly increased reactive endplate changes at L2-3. No significant canal stenosis or foraminal narrowing of the lumbar spine. Pt reports in/out of PT for years. Last time 10-12 yrs ago had PT and was on an ex program, but then moved and took care of grandson from 8 months old until 8 yrs old. Future Testing and Treatments Planned Next MD visit is after 2 PT treatment visits. Developmental History Developmental History In 1999, bent over into car to pick something up and couldn' t move and straighten up. Pt was living in [place] at the time and was told not to lift >20#. Now when she lifts a gallon of milk she has tightness in the low back that warns her not to lift more. Treatment Goals Patient/Caregiver Goals Pt goal: To learn what she should avoid doing, Be placed on an exercise program. How to keep from aggrevating the LB to avoid increased pain . Current Functional Impairments (Reported) Functional Limitations- ADL's Standing or walking 1 hr or less (causes compaction of spine). Sit for a long time. Sometimes was wakes with pain in the hips and generally sore in hips waking up in morning. Avoids twisting as much as she can. Functional Limitations- Other ........... Vacuming results in pain. Personal Factors Other Personal Factors That May Effect Pt spouse sometimes needs Therapy/Recovery physical assist with tasks, pt has 25 yr history of LBP. PT-OP-C Subjective Start: 06/02/23 18:16 Freq: Status: Active Protocol: Document 09/09/23 11:22 LRN (Rec: 09/09/23 12:19 LRN [id number]) OP-PT Subjective Patient Comments Patient Comments Has helped clean a garage, but didn't have pain that night or next day. Walked for 1.5 hrs campaigning but slept well and woke without pain. Little sore in hamstring and R lateral hip, bursa, from walking. Did something this morning (demonstrated twisting ) that caused some of the lateral R LE pain. PT-OP-H Neuro Start: 06/02/23 18:16 Freq: Status: Active Protocol: Document 06/16/23 12:33 LRN (Rec: 06/16/23 13:28 LRN [id number]) Sensation Evaluation Gross Sensation Gross Sensation WNL PT-OP-J Posture/Palpation/Skin Start: 06/02/23 18:16 Freq: Status: Active Protocol: Document 06/16/23 12:33 LRN (Rec: 06/16/23 13:28 LRN [id number]) Posture Evaluation Position Standing T-Spine Posture Increased Kyphosis L-Spine Posture Decreased Lordosis,Shifted Left Scapula Posture (R) Depressed Pelvis Posture (R) Iliac Crest Superior Comments Posture Comments Mild increased lordosis, protruding abdomen Palpation Assessment Location Sacrum Palpation Location Sacrum Palpation Findings Tenderness Palpation Details Sacrum in extension. Hips Palpation Location Gluteals Palpation Details R Gluteals - atrophy L Gluteals - Ms tightness Low back Palpation Location Paraspinals, Interspinous spaces L1 through S1 Palpation Findings Muscle Guarding,Tenderness PT-OP-K Range of Motion Start: 06/02/23 18:16 Freq: Status: Active Protocol: Document 08/16/23 10:30 LRN (Rec: 08/16/23 16:35 LRN [id number]) Hip Goniometric Range of Motion Hip Right Passive Testing Position Supine Straight Leg Raise 75 Comments L posterolateral trunk pain Left Passive Testing Position Supine Straight Leg Raise 70 Comments L posterolateral trunk pain PT-OP-L Special Tests Start: 06/02/23 18:16 Freq: Status: Active Protocol: Document 06/16/23 12:33 LRN (Rec: 06/16/23 13:28 LRN [id number]) Special Tests Lumbar Spine Special Tests Straight Leg Raise Test Results + R LE: 75 deg's. L LE: 65 deg's. Comments RLE: Pain in R posterior thigh and hip PT-OP-M Strength Start: 06/02/23 18:16 Freq: Status: Active Protocol: Document 08/26/23 11:00 LRN (Rec: 08/26/23 12:23 LRN [id number]) Hip Strength Hip Manual Muscle Testing Right Extension (S1) 3+ Fair+ Adduction 3+ Fair+ Comments Hip strength is generally 5/5 when cued to maintain neutral spine. Rotation not tested. Left Extension (S1) 3+ Fair+ Comments Hip strength is generally 5/5 when cued to maintain neutral spine. Rotation not tested. PT-OP-Q Treatments Start: 06/02/23 18:16 Freq: Status: Active Protocol: Document 09/09/23 11:22 LRN (Rec: 09/09/23 12:19 LRN [id number]) Therapeutic Exercises Supine Exercises NS/PF/arm lifts Supine Exercise Name NS/Arm lifts for thoracic ext- core stab, R>L Side bilateral Reps/Minutes 17' Comments Much phys & v. cuing from back , anter pelvis & w/manual resist to arms Prone Exercises NS/arm lifts Prone Exercise Name NS/TA/Arm lifts - 1 pillow under trunk Reps/Minutes 11' Comments Extra time to determine tolerable position due to costochondritis. Self-Care/Home Management Treatment Education Patient Education Home Exercise Program Other Education Reviewed and discussed pt's old HEP of lumbar stabilization program of: NS, and NS in supine, bridging, prone, 4 pt (quadruped), lunges, and straight back bends, and her current HEP issued by [facility]. PT-OP-T Assessment and Plan Start: 06/02/23 18:16 Freq: Status: Active Protocol: Document 09/09/23 11:22 LRN (Rec: 09/09/23 12:19 LRN [id number]) Physical Therapy Assessment Goals Three Impairment Decreased hip strength Impairment R hip: Flex 3+/5, AB 4/5, AD 2/5, (ER/IR WNL). L hip: Flex 3+/5, AB & Ext 3 /5, AD 1/5, ER 3/5 (IR WNL) Short Term Goal (STG) Pt will be independent on a HEP of hip strengthening and mobility ex's. 07/29/23: added fig 4, piriformis stretch and sciatic nerve/active HS stretch R>L LE diminished radiating leg pain. 08/05/23: reviewed added last tx: LTR, piriformis, LE neural glides w/ AP with good response. 08/26/23: HEP: Hip flex, ext, AB, AD strengthening. STG Duration 5 wks (08/26/23) (08/26/23: MET GOAL) Fdc Goal (LTG) Improve hip strength to 4-/5 or greater in areas of weakness. 08/26/23: R hip Ext & AD is 3+ /5, otherwise 5/5. L hip Ext is 3+/5, otherwise 5/5. 09/02/23: reviewed added 08/30 prong LE ext AROM. 09/06/23: improved hip abd/add form/less corrections need awareness, added bug. LTG Duration 10 wks (09/30/23) progressed 09/06/23 Two Impairment Decreased core strength and stability Impairment Pt limited in functional activities, especially motions including twisting. Short Term Goal (STG) Pt will be educated in movements and activities to avoid. 06/23/23: Pt educated in proper transfer sit<>supine and proper body mechanics. 06/27/23: Educated pt in proper transfer sit<>supine from L side of plinth and in proper body mechanics for her activities of ironing, mopping and vacumming floors. 06/27/23: Educated pt in positions and movements to avoid and educated in hip hinging for activities. STG Duration 6 wks (07/31/23) (06/23/23: MET GOAL) Transit Vehicle Inspector Goal (LTG) Pt will be able to maintain core stability with MMT of lower extremities to demonstrate improved core stability and strength. 08/05/23: REviewed added TA& Multifidus bridge- painfree today. 08/26/23: Pt able to maintain core stability with v cuing except for hip Ext (IR/ER not assessed) 09/06/23: improved TA/ NS during hip abd/ add sidelying, added bug. LTG Duration 10 wks (09/30/23) progressing 09/06/23 One Impairment Pt lacks appropriate self care HEP. Short Term Goal (STG) Pt will be educated in log roll transfers, proper body mechanics for ADLs, proper sitting/standing posture. 08/05/23: time spent body mechanics lifting groceries BUE at this time/clse to body and postural alignment squat as needed straight back hip hinge if needed, vacuuming/ sweeping wt shift- better understanding. 08/26/23: Reviewed proper log roll transfers, proper sitting /standing posture. 09/06/23: good Log roll. STG Duration 6 wks (07/31/23) (06/23/23: MET GOAL 09/06/23 progression) Transit Vehicle Inspector Goal (LTG) Be placed on an exercise program of self care HEP for core strengthening, stabilization and mobility ex' s. 06/27/23: Core: HEP: Neutral spine 07/29/23: Core: Reviewed HEP: TA/multifidus and DL heel slides. 08/02/23: Mobility: added/ reviewed a self quadruped stretching cat/camel and child 's pose and UE/LE ext. Added resisted shld ext with core fac reported. 08/26/23: Core: HEP: NS/ PFtightening with Hip flex, ext, AB, AD strengthening. 08/30/23: added forearm/ knee plank to HEP 09/06/23: added bug. Need review seated and quadruped mechanics playing with rosibel future appt. 09/09/23: I/S pt in NS/arm lifts in prone and sup with UE flex resistance. LTG Duration 10 wks (09/30/23) updated Assessment Summary Assessment Pt brought in her lumbar stab program she does at home for review; therefore extra time taken for handout review, leading to core stab practice prone and mimicking in supine. Pt gained awareness of weak R pelvic rotation with prone R arm lifts or in supine with manual resistance to max flex (mimicking force of gravity on arm lifts in prone). Pt appears to be more compliant with core stab at home; therefore pain onset is lessening. Physical Therapy Plan Frequency and Duration Frequency of Treatment 2x/Week Duration of treatment (weeks) 10 Plan of Care Start Date 07/22/23 Plan of Care End Date 09/30/23 Next Visit Focus/Plan Next Note Type Treatment Note Next Visit Plan Review planks, sit/sidelying/ quadruped spinal alignment check for playing with rosibel on floor. If ok- add handout for HEP: LE neural glide-kick the head off until pt able to understand limit of performing. Check hip rotation ROM & strength, check PSLR. Progress slowly Ex for L2-L3 and L3-L4 extension, T/S extension, upper L/S and lower T/S stabilization. Manual: Gentle self mob for T /S (extension avoiding rotation), lumbar traction, STM as needed. Sacral balancing, occasional check for need of L/S traction due to disc dessication. Ex's: Trunk (disc dessication) and hip mobility (note: + R PSLR) POC: 2x/wk for 5 weeks core stab lumbar rehab.
--- NOTE | 2023-09-13 14:53 | PT.OTN ---
Current Diagnoses Other chronic pain (09/13/23) Spondylosis without myelopathy or radiculopathy, lumbar region (09/13/23) Other intervertebral disc degeneration, lumbar region (09/13/23) Radiculopathy, lumbar region (09/13/23) Low back pain, unspecified (09/13/23) Muscle weakness (generalized) (09/13/23) Physical Therapy Treatment Note PT-OP-A Visit Information Start: 06/02/23 18:16 Freq: Status: Active Protocol: Document 09/13/23 14:07 LRN (Rec: 09/13/23 14:53 LRN [id number]) Out-Patient Physical Therapy Visit Information Visit Information Visit Type Treatment Note Visit Note 5 after PN Visit Start Time 14:08 Visit Stop Time 14:46 Total Visit Minutes 38 Visit Number 15 Evaluation Information Evaluation Date 06/16/23 Precautions Precautions LATEX ALLERGY, arthritis, thyroid disorder PT-OP-B Current Condition Start: 06/02/23 18:16 Freq: Status: Active Protocol: Document 06/16/23 12:33 LRN (Rec: 06/16/23 13:28 LRN [id number]) Current Condition History of Current Condition Onset Date Last year worsened after return to gym exer Current Complaints Back pain and R LE pain. History of Current Condition For 25 yrs has had back pain and R hip pain. Variable onset of bilateral leg pain that comes only on one side at a time. States the pain moves around. Walking, standing has worsened her back and shooting pain in R hip on lateral side into the top/ lateral foot. Pain with twisting, like wiping after a BM. Pt reports being referred to PT after imaging comparison to see if her back was worsening. Prior Treatments and Tests X-Ray report 03/23/23: Grade 1 retrolisthesis of L3 on L4 and L2 on L3. Moderate, multilevel degenerative disc disease (pt reported it showed arthritis, impinging on nerves and R hip bursitis). MRI report 03/30/23: Overall similar findings when compared with the MRI dated November 03, 2016 (moderate to severe disc dessication and height loss). There was slightly increased reactive endplate changes at L2-3. No significant canal stenosis or foraminal narrowing of the lumbar spine. Pt reports in/out of PT for years. Last time 10-12 yrs ago had PT and was on an ex program, but then moved and took care of grandson from 8 months old until 8 yrs old. Future Testing and Treatments Planned Next MD visit is after 2 PT treatment visits. Developmental History Developmental History In 1999, bent over into car to pick something up and couldn' t move and straighten up. Pt was living in [place] at the time and was told not to lift >20#. Now when she lifts a gallon of milk she has tightness in the low back that warns her not to lift more. Treatment Goals Patient/Caregiver Goals Pt goal: To learn what she should avoid doing, Be placed on an exercise program. How to keep from aggrevating the LB to avoid increased pain . Current Functional Impairments (Reported) Functional Limitations- ADL's Standing or walking 1 hr or less (causes compaction of spine). Sit for a long time. Sometimes was wakes with pain in the hips and generally sore in hips waking up in morning. Avoids twisting as much as she can. Functional Limitations- Other ........... Vacuming results in pain. Personal Factors Other Personal Factors That May Effect Pt spouse sometimes needs Therapy/Recovery physical assist with tasks, pt has 25 yr history of LBP. PT-OP-C Subjective Start: 06/02/23 18:16 Freq: Status: Active Protocol: Document 09/13/23 14:07 LRN (Rec: 09/13/23 14:53 LRN [id number]) OP-PT Subjective Patient Comments Patient Comments Sat did a lot with 6 yo grandson, so that night was really sore and couldn't stop to rest. Most of the pain was gone in the morning, but not gone yesterday and today. PT-OP-H Neuro Start: 06/02/23 18:16 Freq: Status: Active Protocol: Document 06/16/23 12:33 LRN (Rec: 06/16/23 13:28 LRN [id number]) Sensation Evaluation Gross Sensation Gross Sensation WNL PT-OP-J Posture/Palpation/Skin Start: 06/02/23 18:16 Freq: Status: Active Protocol: Document 06/16/23 12:33 LRN (Rec: 06/16/23 13:28 LRN [id number]) Posture Evaluation Position Standing T-Spine Posture Increased Kyphosis L-Spine Posture Decreased Lordosis,Shifted Left Scapula Posture (R) Depressed Pelvis Posture (R) Iliac Crest Superior Comments Posture Comments Mild increased lordosis, protruding abdomen Palpation Assessment Location Sacrum Palpation Location Sacrum Palpation Findings Tenderness Palpation Details Sacrum in extension. Hips Palpation Location Gluteals Palpation Details R Gluteals - atrophy L Gluteals - Ms tightness Low back Palpation Location Paraspinals, Interspinous spaces L1 through S1 Palpation Findings Muscle Guarding,Tenderness PT-OP-K Range of Motion Start: 06/02/23 18:16 Freq: Status: Active Protocol: Document 08/16/23 10:30 LRN (Rec: 08/16/23 16:35 LRN [id number]) Hip Goniometric Range of Motion Hip Right Passive Testing Position Supine Straight Leg Raise 75 Comments L posterolateral trunk pain Left Passive Testing Position Supine Straight Leg Raise 70 Comments L posterolateral trunk pain PT-OP-L Special Tests Start: 06/02/23 18:16 Freq: Status: Active Protocol: Document 06/16/23 12:33 LRN (Rec: 06/16/23 13:28 LRN [id number]) Special Tests Lumbar Spine Special Tests Straight Leg Raise Test Results + R LE: 75 deg's. L LE: 65 deg's. Comments RLE: Pain in R posterior thigh and hip PT-OP-M Strength Start: 06/02/23 18:16 Freq: Status: Active Protocol: Document 08/26/23 11:00 LRN (Rec: 08/26/23 12:23 LRN [id number]) Hip Strength Hip Manual Muscle Testing Right Extension (S1) 3+ Fair+ Adduction 3+ Fair+ Comments Hip strength is generally 5/5 when cued to maintain neutral spine. Rotation not tested. Left Extension (S1) 3+ Fair+ Comments Hip strength is generally 5/5 when cued to maintain neutral spine. Rotation not tested. PT-OP-Q Treatments Start: 06/02/23 18:16 Freq: Status: Active Protocol: Document 09/13/23 14:07 LRN (Rec: 09/13/23 14:53 LRN [id number]) Therapeutic Exercises Supine Exercises NS/PF/arm lifts Supine Exercise Name NS/Alt and Brandon Arm lifts for thoracic ext-core stab, R>L Side bilateral Reps/Minutes 3' Comments Much phys & v. cuing from back , anter pelvis & w/manual resist to arms NS/PF tight/hip flex Supine Exercise Name NS/PF/hip flex (heel slide) Side bilateral Reps/Minutes 6' Comments MMT of hip flexors; cuing for neutral Sitting Exercises Sciatic neural glide Sitting Exercise Name Kick the Head Reps/Minutes 10x each - 3' Comments V cuing to coordinate mvmt of head and leg. Therapeutic Activity Therapeutic Activity on/off floor, 1/2 kneel, quadruped Name on/off floor, 1/2 kneel, quadraped, use of chair, on/ off stool Reps/Minutes 26' Self-Care/Home Management Treatment Education Other Education Discussed at length pt's activities and how to modify according to flare up of LB ( walking, biking, playing with grandson on floor). PT-OP-T Assessment and Plan Start: 06/02/23 18:16 Freq: Status: Active Protocol: Document 09/13/23 14:07 LRN (Rec: 09/13/23 14:53 LRN [id number]) Physical Therapy Assessment Goals Three Impairment Decreased hip strength Impairment R hip: Flex 3+/5, AB 4/5, AD 2/5, (ER/IR WNL). L hip: Flex 3+/5, AB & Ext 3 /5, AD 1/5, ER 3/5 (IR WNL) Short Term Goal (STG) Pt will be independent on a HEP of hip strengthening and mobility ex's. 07/29/23: added fig 4, piriformis stretch and sciatic nerve/active HS stretch R>L LE diminished radiating leg pain. 08/05/23: reviewed added last tx: LTR, piriformis, LE neural glides w/ AP with good response. 08/26/23: HEP: Hip flex, ext, AB, AD strengthening. STG Duration 5 wks (08/26/23) (08/26/23: MET GOAL) Mcc Goal (LTG) Improve hip strength to 4-/5 or greater in areas of weakness. 08/26/23: R hip Ext & AD is 3+ /5, otherwise 5/5. L hip Ext is 3+/5, otherwise 5/5. 09/02/23: reviewed added 08/30 prong LE ext AROM. 09/06/23: improved hip abd/add form/less corrections need awareness, added bug. LTG Duration 10 wks (09/30/23) progressed 09/06/23 Two Impairment Decreased core strength and stability Impairment Pt limited in functional activities, especially motions including twisting. Short Term Goal (STG) Pt will be educated in movements and activities to avoid. 06/23/23: Pt educated in proper transfer sit<>supine and proper body mechanics. 06/27/23: Educated pt in proper transfer sit<>supine from L side of plinth and in proper body mechanics for her activities of ironing, mopping and vacumming floors. 06/27/23: Educated pt in positions and movements to avoid and educated in hip hinging for activities. STG Duration 6 wks (07/31/23) (06/23/23: MET GOAL) Mcc Goal (LTG) Pt will be able to maintain core stability with MMT of lower extremities to demonstrate improved core stability and strength. 08/05/23: REviewed added TA& Multifidus bridge- painfree today. 08/26/23: Pt able to maintain core stability with v cuing except for hip Ext (IR/ER not assessed) 09/06/23: improved TA/ NS during hip abd/ add sidelying, added bug. LTG Duration 10 wks (09/30/23) progressing 09/06/23 One Impairment Pt lacks appropriate self care HEP. Short Term Goal (STG) Pt will be educated in log roll transfers, proper body mechanics for ADLs, proper sitting/standing posture. 08/05/23: time spent body mechanics lifting groceries BUE at this time/clse to body and postural alignment squat as needed straight back hip hinge if needed, vacuuming/ sweeping wt shift- better understanding. 08/26/23: Reviewed proper log roll transfers, proper sitting /standing posture. 09/06/23: good Log roll. STG Duration 6 wks (07/31/23) (06/23/23: MET GOAL 09/06/23 progression) Assistant Production Editor Goal (LTG) Be placed on an exercise program of self care HEP for core strengthening, stabilization and mobility ex' s. 06/27/23: Core: HEP: Neutral spine 07/29/23: Core: Reviewed HEP: TA/multifidus and DL heel slides. 08/02/23: Mobility: added/ reviewed a self quadruped stretching cat/camel and child 's pose and UE/LE ext. Added resisted shld ext with core fac reported. 08/26/23: Core: HEP: NS/ PFtightening with Hip flex, ext, AB, AD strengthening. 08/30/23: added forearm/ knee plank to HEP 09/06/23: added bug. Need review seated and quadruped mechanics playing with rosibel future appt. 09/09/23: I/S pt in NS/arm lifts in prone and sup with UE flex resistance. LTG Duration 10 wks (09/30/23) updated Assessment Summary Assessment Flare up of R sciatic pain after taking care of rosibel over the weekend; therefore held review of plank. Pt able to get up/down off floor with different ways of sitting (hip IR vs HS stretch vs ER) and sitting surface (stool vs ground). Pt demonstrates poor transfer method initially, but able to perform log roll technique with verbal review. Physical Therapy Plan Frequency and Duration Frequency of Treatment 2x/Week Duration of treatment (weeks) 10 Plan of Care Start Date 07/22/23 Plan of Care End Date 09/30/23 Next Visit Focus/Plan Next Note Type Treatment Note Next Visit Plan Review planks, sidelying spinal alignment check for playing with rosibel on floor . Add handout for HEP: LE neural glide-kick the head off. Check hip rotation ROM & strength, check PSLR. Sacral balancing, occasional check for need of L/S traction due to disc dessication. Progress slowly Ex for L2-L3 and L3-L4 extension, T/S extension, upper L/S and lower T/S stabilization. Manual: Gentle self mob for T /S (extension avoiding rotation), lumbar traction, STM as needed. Ex's: Trunk (disc dessication) and hip mobility (note: + R PSLR) POC: 2x/wk for 5 weeks core stab lumbar rehab.
--- NOTE | 2023-09-15 16:19 | PT.OTN ---
Current Diagnoses Other chronic pain (09/15/23) Spondylosis without myelopathy or radiculopathy, lumbar region (09/15/23) Other intervertebral disc degeneration, lumbar region (09/15/23) Radiculopathy, lumbar region (09/15/23) Low back pain, unspecified (09/15/23) Muscle weakness (generalized) (09/15/23) Physical Therapy Treatment Note PT-OP-A Visit Information Start: 06/02/23 18:16 Freq: Status: Active Protocol: Document 09/15/23 14:08 LRN (Rec: 09/15/23 14:55 LRN [id number]) Out-Patient Physical Therapy Visit Information Visit Information Visit Type Treatment Note Visit Note 6 after PN Visit Start Time 14:08 Visit Stop Time 14:50 Total Visit Minutes 42 Visit Number 16 PT-OP-B Current Condition Start: 06/02/23 18:16 Freq: Status: Active Protocol: Document 06/16/23 12:33 LRN (Rec: 06/16/23 13:28 LRN [id number]) Current Condition History of Current Condition Onset Date Last year worsened after return to gym exer Current Complaints Back pain and R LE pain. History of Current Condition For 25 yrs has had back pain and R hip pain. Variable onset of bilateral leg pain that comes only on one side at a time. States the pain moves around. Walking, standing has worsened her back and shooting pain in R hip on lateral side into the top/ lateral foot. Pain with twisting, like wiping after a BM. Pt reports being referred to PT after imaging comparison to see if her back was worsening. Prior Treatments and Tests X-Ray report 03/23/23: Grade 1 retrolisthesis of L3 on L4 and L2 on L3. Moderate, multilevel degenerative disc disease (pt reported it showed arthritis, impinging on nerves and R hip bursitis). MRI report 03/30/23: Overall similar findings when compared with the MRI dated November 03, 2016 (moderate to severe disc dessication and height loss). There was slightly increased reactive endplate changes at L2-3. No significant canal stenosis or foraminal narrowing of the lumbar spine. Pt reports in/out of PT for years. Last time 10-12 yrs ago had PT and was on an ex program, but then moved and took care of grandson from 8 months old until 8 yrs old. Future Testing and Treatments Planned Next MD visit is after 2 PT treatment visits. Developmental History Developmental History In 1999, bent over into car to pick something up and couldn' t move and straighten up. Pt was living in [place] at the time and was told not to lift >20#. Now when she lifts a gallon of milk she has tightness in the low back that warns her not to lift more. Treatment Goals Patient/Caregiver Goals Pt goal: To learn what she should avoid doing, Be placed on an exercise program. How to keep from aggrevating the LB to avoid increased pain . Current Functional Impairments (Reported) Functional Limitations- ADL's Standing or walking 1 hr or less (causes compaction of spine). Sit for a long time. Sometimes was wakes with pain in the hips and generally sore in hips waking up in morning. Avoids twisting as much as she can. Functional Limitations- Other ........... Vacuming results in pain. Personal Factors Other Personal Factors That May Effect Pt spouse sometimes needs Therapy/Recovery physical assist with tasks, pt has 25 yr history of LBP. PT-OP-C Subjective Start: 06/02/23 18:16 Freq: Status: Active Protocol: Document 09/15/23 14:08 LRN (Rec: 09/15/23 14:55 LRN [id number]) OP-PT Subjective Patient Comments Patient Comments Pt to cancel 1x next week and will be seen for 1x. States she rested since last treatment and feels better. PT-OP-H Neuro Start: 06/02/23 18:16 Freq: Status: Active Protocol: Document 06/16/23 12:33 LRN (Rec: 06/16/23 13:28 LRN [id number]) Sensation Evaluation Gross Sensation Gross Sensation WNL PT-OP-J Posture/Palpation/Skin Start: 06/02/23 18:16 Freq: Status: Active Protocol: Document 06/16/23 12:33 LRN (Rec: 06/16/23 13:28 LRN [id number]) Posture Evaluation Position Standing T-Spine Posture Increased Kyphosis L-Spine Posture Decreased Lordosis,Shifted Left Scapula Posture (R) Depressed Pelvis Posture (R) Iliac Crest Superior Comments Posture Comments Mild increased lordosis, protruding abdomen Palpation Assessment Location Sacrum Palpation Location Sacrum Palpation Findings Tenderness Palpation Details Sacrum in extension. Hips Palpation Location Gluteals Palpation Details R Gluteals - atrophy L Gluteals - Ms tightness Low back Palpation Location Paraspinals, Interspinous spaces L1 through S1 Palpation Findings Muscle Guarding,Tenderness PT-OP-K Range of Motion Start: 06/02/23 18:16 Freq: Status: Active Protocol: Document 09/15/23 14:08 LRN (Rec: 09/15/23 15:02 LRN [id number]) Hip Goniometric Range of Motion Hip Right Passive Testing Position Supine Straight Leg Raise 65 Internal Rotation 30 External Rotation 75 Left Passive Testing Position Supine Straight Leg Raise 60 Internal Rotation 20 External Rotation 75 PT-OP-L Special Tests Start: 06/02/23 18:16 Freq: Status: Active Protocol: Document 06/16/23 12:33 LRN (Rec: 06/16/23 13:28 LRN [id number]) Special Tests Lumbar Spine Special Tests Straight Leg Raise Test Results + R LE: 75 deg's. L LE: 65 deg's. Comments RLE: Pain in R posterior thigh and hip PT-OP-M Strength Start: 06/02/23 18:16 Freq: Status: Active Protocol: Document 09/15/23 14:08 LRN (Rec: 09/15/23 15:02 LRN [id number]) Hip Strength Hip Manual Muscle Testing Right Extension (S1) 3+ Fair+ Abduction 4 Good Comments Hip strength 5/5 except as indicated above Left Extension (S1) 4 Good PT-OP-Q Treatments Start: 06/02/23 18:16 Freq: Status: Active Protocol: Document 09/15/23 14:08 LRN (Rec: 09/15/23 14:55 LRN [id number]) Therapeutic Exercises Supine Exercises Sciatic nerve glide Supine Exercise Name LE neural sciatic glide review Side bilateral Equipment Used grasp behind thigh Reps/Minutes 10 CCW AROM x 3 sets Comments cued ankle mov't, w/ankle counterclockwise AROM- light tired back R- no pn Piriformis stretch Supine Exercise Name Piriformis stretch- told do 1st then fig 4 Side bilateral Resistance R>L Equipment Used opp LE straight Reps/Minutes 30 SH Comments good form, IR PROM Taken. Fig 4 stretch Supine Exercise Name Hip ER stretch Comments ER PROM taken Sidelying Exercises NS/PF/Clamshell Sidelying Exercise Name NS/PF/Clamshell Side right Reps/Minutes 10x Comments Cuing for NS/PF contraction NS/PF/Hip AB Sidelying Exercise Name NS/PF/Hip AB Side right Reps/Minutes 15x Comments Cuing to maintain NS openbook Sidelying Exercise Name showed/discussed, not performed Reps/Minutes 10 SHx 5 reps each side Comments early am warm up mobility before get up Sitting Exercises stretching Sitting Exercise Name 45 deg FB for intrascapular stretching. Side bilateral Reps/Minutes 10 SH x 2 Standing Exercises Paloff Press Standing Exercise Name Partial Paloff Press Side bilateral Reps/Minutes 6x Comments Cuing to keep neutral spine, avoiding increased lumbar lordosis Self-Care/Home Management Treatment Education Patient Education Home Exercise Program Activities Self-Care/Home Management Activities Issued & reviewed HEP: Clamshell & Openbook thoracic stretch. PT-OP-T Assessment and Plan Start: 06/02/23 18:16 Freq: Status: Active Protocol: Document 09/15/23 14:08 LRN (Rec: 09/15/23 14:55 LRN [id number]) Physical Therapy Assessment Goals Three Impairment Decreased hip strength Impairment R hip: Flex 3+/5, AB 4/5, AD 2/5, (ER/IR WNL). L hip: Flex 3+/5, AB & Ext 3 /5, AD 1/5, ER 3/5 (IR WNL) Short Term Goal (STG) Pt will be independent on a HEP of hip strengthening and mobility ex's. 07/29/23: added fig 4, piriformis stretch and sciatic nerve/active HS stretch R>L LE diminished radiating leg pain. 08/05/23: reviewed added last tx: LTR, piriformis, LE neural glides w/ AP with good response. 08/26/23: HEP: Hip flex, ext, AB, AD strengthening. STG Duration 5 wks (08/26/23) (08/26/23: MET GOAL) Regrader Goal (LTG) Improve hip strength to 4-/5 or greater in areas of weakness. 08/26/23: R hip Ext & AD is 3+ /5, otherwise 5/5. L hip Ext is 3+/5, otherwise 5/5. 09/02/23: reviewed added 08/30 prong LE ext AROM. 09/06/23: improved hip abd/add form/less corrections need awareness, added bug. LTG Duration 10 wks (09/30/23) progressed 09/06/23 Two Impairment Decreased core strength and stability Impairment Pt limited in functional activities, especially motions including twisting. Short Term Goal (STG) Pt will be educated in movements and activities to avoid. 06/23/23: Pt educated in proper transfer sit<>supine and proper body mechanics. 06/27/23: Educated pt in proper transfer sit<>supine from L side of plinth and in proper body mechanics for her activities of ironing, mopping and vacumming floors. 06/27/23: Educated pt in positions and movements to avoid and educated in hip hinging for activities. STG Duration 6 wks (07/31/23) (06/23/23: MET GOAL) Mcc Goal (LTG) Pt will be able to maintain core stability with MMT of lower extremities to demonstrate improved core stability and strength. 08/05/23: REviewed added TA& Multifidus bridge- painfree today. 08/26/23: Pt able to maintain core stability with v cuing except for hip Ext (IR/ER not assessed) 09/06/23: improved TA/ NS during hip abd/ add sidelying, added bug. LTG Duration 10 wks (09/30/23) progressing 09/06/23 One Impairment Pt lacks appropriate self care HEP. Short Term Goal (STG) Pt will be educated in log roll transfers, proper body mechanics for ADLs, proper sitting/standing posture. 08/05/23: time spent body mechanics lifting groceries BUE at this time/clse to body and postural alignment squat as needed straight back hip hinge if needed, vacuuming/ sweeping wt shift- better understanding. 08/26/23: Reviewed proper log roll transfers, proper sitting /standing posture. 09/06/23: good Log roll. STG Duration 6 wks (07/31/23) (06/23/23: MET GOAL 09/06/23 progression) Regrader Goal (LTG) Be placed on an exercise program of self care HEP for core strengthening, stabilization and mobility ex' s. 06/27/23: Core: HEP: Neutral spine 07/29/23: Core: Reviewed HEP: TA/multifidus and DL heel slides. 08/02/23: Mobility: added/ reviewed a self quadruped stretching cat/camel and child 's pose and UE/LE ext. Added resisted shld ext with core fac reported. 08/26/23: Core: HEP: NS/ PFtightening with Hip flex, ext, AB, AD strengthening. 08/30/23: added forearm/ knee plank to HEP 09/06/23: added bug. Need review seated and quadruped mechanics playing with rosibel future appt. 09/09/23: I/S pt in NS/arm lifts in prone and sup with UE flex resistance. LTG Duration 10 wks (09/30/23) updated Assessment Summary Assessment Side planks do not appropriate for pt's level of stabilization. Pt needs less aggressive trunk strengthening progression. Hip mobility is limited with L hip IR (20 deg 's L, 30 deg's R) and PSLR (60 deg's L, 65 de's R). Hip strength is normal except ext bilaterally (4/5 L, 3+/5 R) and R hip AB (4/5). Pt may need sacral balancing. Physical Therapy Plan Frequency and Duration Frequency of Treatment 2x/Week Duration of treatment (weeks) 10 Plan of Care Start Date 07/22/23 Plan of Care End Date 09/30/23 Next Visit Focus/Plan Next Note Type Treatment Note Next Visit Plan Review/check sidelying spinal alignment for playing with rosibel on floor. Check/Add HEP: LE neural glide-kick the head off (pt should have HEP, but may need another handout). PT Next: Sacral balancing, occasional check for need of L /S traction due to disc dessication. Progress slowly Ex for L2-L3 and L3-L4 extension, T/S extension, upper L/S and lower T/S stabilization. Manual: Gentle self mob for T /S (extension avoiding rotation), lumbar traction, STM as needed. Ex's: Trunk (disc dessication) and hip mobility (note: PSLR decreased bilaterally) POC: 2x/wk for core stab lumbar rehab.
--- NOTE | 2023-09-22 16:05 | PT.OTN ---
Current Diagnoses Other chronic pain (09/22/23) Spondylosis without myelopathy or radiculopathy, lumbar region (09/22/23) Other intervertebral disc degeneration, lumbar region (09/22/23) Radiculopathy, lumbar region (09/22/23) Low back pain, unspecified (09/22/23) Muscle weakness (generalized) (09/22/23) Physical Therapy Treatment Note PT-OP-A Visit Information Start: 06/02/23 18:16 Freq: Status: Active Protocol: Document 09/22/23 12:32 LRN (Rec: 09/22/23 14:05 LRN [id number]) Out-Patient Physical Therapy Visit Information Visit Information Visit Type Treatment Note Visit Note 7 after PN Visit Start Time 12:32 Visit Stop Time 13:13 Total Visit Minutes 41 Visit Number 17 Evaluation Information Evaluation Date 06/16/23 Precautions Precautions LATEX ALLERGY, arthritis, thyroid disorder PT-OP-B Current Condition Start: 06/02/23 18:16 Freq: Status: Active Protocol: Document 06/16/23 12:33 LRN (Rec: 06/16/23 13:28 LRN [id number]) Current Condition History of Current Condition Onset Date Last year worsened after return to gym exer Current Complaints Back pain and R LE pain. History of Current Condition For 25 yrs has had back pain and R hip pain. Variable onset of bilateral leg pain that comes only on one side at a time. States the pain moves around. Walking, standing has worsened her back and shooting pain in R hip on lateral side into the top/ lateral foot. Pain with twisting, like wiping after a BM. Pt reports being referred to PT after imaging comparison to see if her back was worsening. Prior Treatments and Tests X-Ray report 03/23/23: Grade 1 retrolisthesis of L3 on L4 and L2 on L3. Moderate, multilevel degenerative disc disease (pt reported it showed arthritis, impinging on nerves and R hip bursitis). MRI report 03/30/23: Overall similar findings when compared with the MRI dated November 03, 2016 (moderate to severe disc dessication and height loss). There was slightly increased reactive endplate changes at L2-3. No significant canal stenosis or foraminal narrowing of the lumbar spine. Pt reports in/out of PT for years. Last time 10-12 yrs ago had PT and was on an ex program, but then moved and took care of grandson from 8 months old until 8 yrs old. Future Testing and Treatments Planned Next MD visit is after 2 PT treatment visits. Developmental History Developmental History In 1999, bent over into car to pick something up and couldn' t move and straighten up. Pt was living in [place] at the time and was told not to lift >20#. Now when she lifts a gallon of milk she has tightness in the low back that warns her not to lift more. Treatment Goals Patient/Caregiver Goals Pt goal: To learn what she should avoid doing, Be placed on an exercise program. How to keep from aggrevating the LB to avoid increased pain . Current Functional Impairments (Reported) Functional Limitations- ADL's Standing or walking 1 hr or less (causes compaction of spine). Sit for a long time. Sometimes was wakes with pain in the hips and generally sore in hips waking up in morning. Avoids twisting as much as she can. Functional Limitations- Other ........... Vacuming results in pain. Personal Factors Other Personal Factors That May Effect Pt spouse sometimes needs Therapy/Recovery physical assist with tasks, pt has 25 yr history of LBP. PT-OP-C Subjective Start: 06/02/23 18:16 Freq: Status: Active Protocol: Document 09/22/23 12:32 LRN (Rec: 09/22/23 14:05 LRN [id number]) OP-PT Subjective Patient Comments Patient Comments Doing better, just a little discomfort in R anterior fischer. Was with 2 grandchilds yesterday, tried to: keep core straight, not carrying heavy things, and just sat on heels when on the floor. PT-OP-H Neuro Start: 06/02/23 18:16 Freq: Status: Active Protocol: Document 06/16/23 12:33 LRN (Rec: 06/16/23 13:28 LRN [id number]) Sensation Evaluation Gross Sensation Gross Sensation WNL PT-OP-J Posture/Palpation/Skin Start: 06/02/23 18:16 Freq: Status: Active Protocol: Document 06/16/23 12:33 LRN (Rec: 06/16/23 13:28 LRN [id number]) Posture Evaluation Position Standing T-Spine Posture Increased Kyphosis L-Spine Posture Decreased Lordosis,Shifted Left Scapula Posture (R) Depressed Pelvis Posture (R) Iliac Crest Superior Comments Posture Comments Mild increased lordosis, protruding abdomen Palpation Assessment Location Sacrum Palpation Location Sacrum Palpation Findings Tenderness Palpation Details Sacrum in extension. Hips Palpation Location Gluteals Palpation Details R Gluteals - atrophy L Gluteals - Ms tightness Low back Palpation Location Paraspinals, Interspinous spaces L1 through S1 Palpation Findings Muscle Guarding,Tenderness PT-OP-K Range of Motion Start: 06/02/23 18:16 Freq: Status: Active Protocol: Document 09/15/23 14:08 LRN (Rec: 09/15/23 15:02 LRN [id number]) Hip Goniometric Range of Motion Hip Right Passive Testing Position Supine Straight Leg Raise 65 Internal Rotation 30 External Rotation 75 Left Passive Testing Position Supine Straight Leg Raise 60 Internal Rotation 20 External Rotation 75 PT-OP-L Special Tests Start: 06/02/23 18:16 Freq: Status: Active Protocol: Document 06/16/23 12:33 LRN (Rec: 06/16/23 13:28 LRN [id number]) Special Tests Lumbar Spine Special Tests Straight Leg Raise Test Results + R LE: 75 deg's. L LE: 65 deg's. Comments RLE: Pain in R posterior thigh and hip PT-OP-M Strength Start: 06/02/23 18:16 Freq: Status: Active Protocol: Document 09/15/23 14:08 LRN (Rec: 09/15/23 15:02 LRN [id number]) Hip Strength Hip Manual Muscle Testing Right Extension (S1) 3+ Fair+ Abduction 4 Good Comments Hip strength 5/5 except as indicated above Left Extension (S1) 4 Good PT-OP-Q Treatments Start: 06/02/23 18:16 Freq: Status: Active Protocol: Document 09/22/23 12:32 LRN (Rec: 09/22/23 14:05 LRN [id number]) Therapeutic Exercises Supine Exercises TA/brandon heel slides Supine Exercise Name TA Brandon heel slides Comments Cuing for neutral spine and equal mvmt of heels. Other Exercises Transfers Other Exercise Name Transfer training Sit<>Supine Reps/Minutes 2x Comments Cuing for use of hands and mvmt of feet together Manual Therapy Treatment Soft Tissue Mobilization Sacral Balancing Body Location Sacral balancing Comments Correction of decr'd mobo of L sacral sulcus (SS) inferiorly & L PA of SS, and PA of Ischial Tub. 6 pt Balancing PT-OP-T Assessment and Plan Start: 06/02/23 18:16 Freq: Status: Active Protocol: Document 09/22/23 12:32 LRN (Rec: 09/22/23 14:05 LRN [id number]) Physical Therapy Assessment Goals Three Impairment Decreased hip strength Impairment R hip: Flex 3+/5, AB 4/5, AD 2/5, (ER/IR WNL). L hip: Flex 3+/5, AB & Ext 3 /5, AD 1/5, ER 3/5 (IR WNL) Short Term Goal (STG) Pt will be independent on a HEP of hip strengthening and mobility ex's. 07/29/23: added fig 4, piriformis stretch and sciatic nerve/active HS stretch R>L LE diminished radiating leg pain. 08/05/23: reviewed added last tx: LTR, piriformis, LE neural glides w/ AP with good response. 08/26/23: HEP: Hip flex, ext, AB, AD strengthening. STG Duration 5 wks (08/26/23) (08/26/23: MET GOAL) Feed Mill Manager Goal (LTG) Improve hip strength to 4-/5 or greater in areas of weakness. 08/26/23: R hip Ext & AD is 3+ /5, otherwise 5/5. L hip Ext is 3+/5, otherwise 5/5. 09/02/23: reviewed added 08/30 prong LE ext AROM. 09/06/23: improved hip abd/add form/less corrections need awareness, added bug. LTG Duration 10 wks (09/30/23) progressed 09/06/23 Two Impairment Decreased core strength and stability Impairment Pt limited in functional activities, especially motions including twisting. Short Term Goal (STG) Pt will be educated in movements and activities to avoid. 06/23/23: Pt educated in proper transfer sit<>supine and proper body mechanics. 06/27/23: Educated pt in proper transfer sit<>supine from L side of plinth and in proper body mechanics for her activities of ironing, mopping and vacumming floors. 06/27/23: Educated pt in positions and movements to avoid and educated in hip hinging for activities. STG Duration 6 wks (07/31/23) (06/23/23: MET GOAL) Assisted Goal (LTG) Pt will be able to maintain core stability with MMT of lower extremities to demonstrate improved core stability and strength. 08/05/23: REviewed added TA& Multifidus bridge- painfree today. 08/26/23: Pt able to maintain core stability with v cuing except for hip Ext (IR/ER not assessed) 09/06/23: improved TA/ NS during hip abd/ add sidelying, added bug. LTG Duration 10 wks (09/30/23) progressing 09/06/23 One Impairment Pt lacks appropriate self care HEP. Short Term Goal (STG) Pt will be educated in log roll transfers, proper body mechanics for ADLs, proper sitting/standing posture. 08/05/23: time spent body mechanics lifting groceries BUE at this time/clse to body and postural alignment squat as needed straight back hip hinge if needed, vacuuming/ sweeping wt shift- better understanding. 08/26/23: Reviewed proper log roll transfers, proper sitting /standing posture. 09/06/23: good Log roll. STG Duration 6 wks (07/31/23) (06/23/23: MET GOAL 09/06/23 progression) Feed Mill Manager Goal (LTG) Be placed on an exercise program of self care HEP for core strengthening, stabilization and mobility ex' s. 06/27/23: Core: HEP: Neutral spine 07/29/23: Core: Reviewed HEP: TA/multifidus and DL heel slides. 08/02/23: Mobility: added/ reviewed a self quadruped stretching cat/camel and child 's pose and UE/LE ext. Added resisted shld ext with core fac reported. 08/26/23: Core: HEP: NS/ PFtightening with Hip flex, ext, AB, AD strengthening. 08/30/23: added forearm/ knee plank to HEP 09/06/23: added bug. Need review seated and quadruped mechanics playing with C3 Jian future appt. 09/09/23: I/S pt in NS/arm lifts in prone and sup with UE flex resistance. LTG Duration 10 wks (09/30/23) updated Assessment Summary Assessment After review of sidelying spinal alignment for playing with grandson on floor, it was decided that it was not a good position for pt to be in and the pt was to avoid sidelying while playing with grandson. Pt having less onset of pain with modification of activities. Pt wanting to be able to do all activities without consequence, but is learning to accept the need for modification of activities to prevent pain. Physical Therapy Plan Frequency and Duration Frequency of Treatment 2x/Week Duration of treatment (weeks) 10 Plan of Care Start Date 07/22/23 Plan of Care End Date 09/30/23 Next Visit Focus/Plan Next Note Type Treatment Note Next Visit Plan KX in 2 visits and new POC needed next week. Next: Assess response to sacral balancing. Occasional check for need of L /S traction due to disc dessication, progress lower TA tightening. Progress slowly Ex for L2-L3 and L3-L4 extension/ stabilizing, T/S extension and lower T/S stabilization. Manual: Gentle self mob for T /S (extension avoiding rotation), lumbar traction, STM as needed. Ex's: Trunk (disc dessication) and hip mobility (note: PSLR decreased bilaterally) POC: 2x/wk for core stab lumbar rehab.
--- NOTE | 2023-09-27 14:34 | PT.OTN ---
Current Diagnoses Other chronic pain (09/27/23) Spondylosis without myelopathy or radiculopathy, lumbar region (09/27/23) Other intervertebral disc degeneration, lumbar region (09/27/23) Radiculopathy, lumbar region (09/27/23) Low back pain, unspecified (09/27/23) Muscle weakness (generalized) (09/27/23) Physical Therapy Treatment Note PT-OP-A Visit Information Start: 06/02/23 18:16 Freq: Status: Active Protocol: Document 09/27/23 13:29 LRN (Rec: 09/27/23 14:30 LRN [id number]) Out-Patient Physical Therapy Visit Information Visit Information Visit Type Treatment Note Visit Note 8 after PN Visit Start Time 13:29 Visit Stop Time 14:20 Total Visit Minutes 50 Visit Number 18 Evaluation Information Evaluation Date 06/16/23 Precautions Precautions LATEX ALLERGY, arthritis, thyroid disorder PT-OP-B Current Condition Start: 06/02/23 18:16 Freq: Status: Active Protocol: Document 06/16/23 12:33 LRN (Rec: 06/16/23 13:28 LRN [id number]) Current Condition History of Current Condition Onset Date Last year worsened after return to gym exer Current Complaints Back pain and R LE pain. History of Current Condition For 25 yrs has had back pain and R hip pain. Variable onset of bilateral leg pain that comes only on one side at a time. States the pain moves around. Walking, standing has worsened her back and shooting pain in R hip on lateral side into the top/ lateral foot. Pain with twisting, like wiping after a BM. Pt reports being referred to PT after imaging comparison to see if her back was worsening. Prior Treatments and Tests X-Ray report 03/23/23: Grade 1 retrolisthesis of L3 on L4 and L2 on L3. Moderate, multilevel degenerative disc disease (pt reported it showed arthritis, impinging on nerves and R hip bursitis). MRI report 03/30/23: Overall similar findings when compared with the MRI dated November 03, 2016 (moderate to severe disc dessication and height loss). There was slightly increased reactive endplate changes at L2-3. No significant canal stenosis or foraminal narrowing of the lumbar spine. Pt reports in/out of PT for years. Last time 10-12 yrs ago had PT and was on an ex program, but then moved and took care of grandson from 8 months old until 8 yrs old. Future Testing and Treatments Planned Next MD visit is after 2 PT treatment visits. Developmental History Developmental History In 1999, bent over into car to pick something up and couldn' t move and straighten up. Pt was living in [place] at the time and was told not to lift >20#. Now when she lifts a gallon of milk she has tightness in the low back that warns her not to lift more. Treatment Goals Patient/Caregiver Goals Pt goal: To learn what she should avoid doing, Be placed on an exercise program. How to keep from aggrevating the LB to avoid increased pain . Current Functional Impairments (Reported) Functional Limitations- ADL's Standing or walking 1 hr or less (causes compaction of spine). Sit for a long time. Sometimes was wakes with pain in the hips and generally sore in hips waking up in morning. Avoids twisting as much as she can. Functional Limitations- Other ........... Vacuming results in pain. Personal Factors Other Personal Factors That May Effect Pt spouse sometimes needs Therapy/Recovery physical assist with tasks, pt has 25 yr history of LBP. PT-OP-C Subjective Start: 06/02/23 18:16 Freq: Status: Active Protocol: Document 09/27/23 13:29 LRN (Rec: 09/27/23 14:30 LRN [id number]) OP-PT Subjective Patient Comments Patient Comments States had burning down the legs and was uncomfortable for a day after, and once in awhile the arms are involved. Has been working on not crossing legs. Over the w/e was pretty good. Waking this morning had pain down the R leg (pointing at Piriformis location). PT-OP-H Neuro Start: 06/02/23 18:16 Freq: Status: Active Protocol: Document 06/16/23 12:33 LRN (Rec: 06/16/23 13:28 LRN [id number]) Sensation Evaluation Gross Sensation Gross Sensation WNL PT-OP-J Posture/Palpation/Skin Start: 06/02/23 18:16 Freq: Status: Active Protocol: Document 06/16/23 12:33 LRN (Rec: 06/16/23 13:28 LRN [id number]) Posture Evaluation Position Standing T-Spine Posture Increased Kyphosis L-Spine Posture Decreased Lordosis,Shifted Left Scapula Posture (R) Depressed Pelvis Posture (R) Iliac Crest Superior Comments Posture Comments Mild increased lordosis, protruding abdomen Palpation Assessment Location Sacrum Palpation Location Sacrum Palpation Findings Tenderness Palpation Details Sacrum in extension. Hips Palpation Location Gluteals Palpation Details R Gluteals - atrophy L Gluteals - Ms tightness Low back Palpation Location Paraspinals, Interspinous spaces L1 through S1 Palpation Findings Muscle Guarding,Tenderness PT-OP-K Range of Motion Start: 06/02/23 18:16 Freq: Status: Active Protocol: Document 09/15/23 14:08 LRN (Rec: 09/15/23 15:02 LRN [id number]) Hip Goniometric Range of Motion Hip Right Passive Testing Position Supine Straight Leg Raise 65 Internal Rotation 30 External Rotation 75 Left Passive Testing Position Supine Straight Leg Raise 60 Internal Rotation 20 External Rotation 75 PT-OP-L Special Tests Start: 06/02/23 18:16 Freq: Status: Active Protocol: Document 06/16/23 12:33 LRN (Rec: 06/16/23 13:28 LRN [id number]) Special Tests Lumbar Spine Special Tests Straight Leg Raise Test Results + R LE: 75 deg's. L LE: 65 deg's. Comments RLE: Pain in R posterior thigh and hip PT-OP-M Strength Start: 06/02/23 18:16 Freq: Status: Active Protocol: Document 09/15/23 14:08 LRN (Rec: 09/15/23 15:02 LRN [id number]) Hip Strength Hip Manual Muscle Testing Right Extension (S1) 3+ Fair+ Abduction 4 Good Comments Hip strength 5/5 except as indicated above Left Extension (S1) 4 Good PT-OP-Q Treatments Start: 06/02/23 18:16 Freq: Status: Active Protocol: Document 09/27/23 13:29 LRN (Rec: 09/27/23 14:30 LRN [id number]) Therapeutic Exercises Other Exercises Transfers Other Exercise Name TA tightening w/Transfer Sit<> Supine, in/out car practice Reps/Minutes 2x Comments Cuing for use of hands and mvmt of feet together Manual Therapy Treatment Soft Tissue Mobilization Sacral Balancing Body Location Sacral balancing Mobilization Type Sustained Pressure Intensity/Depth Moderate Body Position Prone Comments 2x Correction of decr'd mob of L sacral sulcus (SS) inferiorly & posteriorly (L PA of SS), and PA of L Ischial Tub. 6 pt Balancing. Supine: Anterior Pelvic mob ( mob of R rami superiorly). L LS Body Location L Hip flexor (QL) relaxation Mobilization Type Myofascial Release Intensity/Depth Moderate Body Position Sup on pillows Self-Care/Home Management Treatment Education Other Education Reviewed body mechanics of picking toys up off the floor. PT-OP-T Assessment and Plan Start: 06/02/23 18:16 Freq: Status: Active Protocol: Document 09/27/23 13:29 LRN (Rec: 09/27/23 14:30 LRN [id number]) Physical Therapy Assessment Goals Three Impairment Decreased hip strength Impairment R hip: Flex 3+/5, AB 4/5, AD 2/5, (ER/IR WNL). L hip: Flex 3+/5, AB & Ext 3 /5, AD 1/5, ER 3/5 (IR WNL) Short Term Goal (STG) Pt will be independent on a HEP of hip strengthening and mobility ex's. 07/29/23: added fig 4, piriformis stretch and sciatic nerve/active HS stretch R>L LE diminished radiating leg pain. 08/05/23: reviewed added last tx: LTR, piriformis, LE neural glides w/ AP with good response. 08/26/23: HEP: Hip flex, ext, AB, AD strengthening. STG Duration 5 wks (08/26/23) (08/26/23: MET GOAL) [employer] Goal (LTG) Improve hip strength to 4-/5 or greater in areas of weakness. 08/26/23: R hip Ext & AD is 3+ /5, otherwise 5/5. L hip Ext is 3+/5, otherwise 5/5. 09/02/23: reviewed added 08/30 prong LE ext AROM. 09/06/23: improved hip abd/add form/less corrections need awareness, added bug. LTG Duration 10 wks (09/30/23) progressed 09/06/23 Two Impairment Decreased core strength and stability Impairment Pt limited in functional activities, especially motions including twisting. Short Term Goal (STG) Pt will be educated in movements and activities to avoid. 06/23/23: Pt educated in proper transfer sit<>supine and proper body mechanics. 06/27/23: Educated pt in proper transfer sit<>supine from L side of plinth and in proper body mechanics for her activities of ironing, mopping and vacumming floors. 06/27/23: Educated pt in positions and movements to avoid and educated in hip hinging for activities. STG Duration 6 wks (07/31/23) (06/23/23: MET GOAL) [employer] Goal (LTG) Pt will be able to maintain core stability with MMT of lower extremities to demonstrate improved core stability and strength. 08/05/23: REviewed added TA& Multifidus bridge- painfree today. 08/26/23: Pt able to maintain core stability with v cuing except for hip Ext (IR/ER not assessed) 09/06/23: improved TA/ NS during hip abd/ add sidelying, added bug. LTG Duration 10 wks (09/30/23) progressing 09/06/23 One Impairment Pt lacks appropriate self care HEP. Short Term Goal (STG) Pt will be educated in log roll transfers, proper body mechanics for ADLs, proper sitting/standing posture. 08/05/23: time spent body mechanics lifting groceries BUE at this time/clse to body and postural alignment squat as needed straight back hip hinge if needed, vacuuming/ sweeping wt shift- better understanding. 08/26/23: Reviewed proper log roll transfers, proper sitting /standing posture. 09/06/23: good Log roll. STG Duration 6 wks (07/31/23) (06/23/23: MET GOAL 09/06/23 progression) Shelter Goal (LTG) Be placed on an exercise program of self care HEP for core strengthening, stabilization and mobility ex' s. 06/27/23: Core: HEP: Neutral spine 07/29/23: Core: Reviewed HEP: TA/multifidus and DL heel slides. 08/02/23: Mobility: added/ reviewed a self quadruped stretching cat/camel and child 's pose and UE/LE ext. Added resisted shld ext with core fac reported. 08/26/23: Core: HEP: NS/ PFtightening with Hip flex, ext, AB, AD strengthening. 08/30/23: added forearm/ knee plank to HEP 09/06/23: added bug. Need review seated and quadruped mechanics playing with Pembe Panjur future appt. 09/09/23: I/S pt in NS/arm lifts in prone and sup with UE flex resistance. LTG Duration 10 wks (09/30/23) updated Assessment Summary Assessment Good response to Sacral balancing with no significant c/o until waking this morning in bed. Needed 2x sacral balancing to stabilize Sacrum. Might need sacral stab ex's along with TA stab for sacral stability. Pt demonstrating much better knowledge of proper body mechanics with picking up purse at end of treatment. Physical Therapy Plan Frequency and Duration Frequency of Treatment 2x/Week Duration of treatment (weeks) 10 Plan of Care Start Date 07/22/23 Plan of Care End Date 09/30/23 Next Visit Focus/Plan Next Note Type Treatment Note Next Visit Plan KX in 1 visits and new POC needed next visit. Next: Assess response to sacral balancing. Progress core/sacral stabilization. Occasional check for need of L /S traction due to disc dessication, progress lower TA tightening. Progress slowly Ex for L2-L3 and L3-L4 extension/ stabilizing, T/S extension and lower T/S stabilization. Manual: Gentle self mob for T /S (extension avoiding rotation), lumbar traction, STM as needed. Ex's: Trunk (disc dessication) and hip mobility (note: PSLR decreased bilaterally) POC: 2x/wk for core stab lumbar rehab.
--- NOTE | 2023-09-29 15:36 | PT.OTN ---
Current Diagnoses Other chronic pain (09/29/23) Spondylosis without myelopathy or radiculopathy, lumbar region (09/29/23) Other intervertebral disc degeneration, lumbar region (09/29/23) Radiculopathy, lumbar region (09/29/23) Low back pain, unspecified (09/29/23) Muscle weakness (generalized) (09/29/23) Physical Therapy Treatment Note PT-OP-A Visit Information Start: 06/02/23 18:16 Freq: Status: Active Protocol: Document 09/29/23 14:01 LRN (Rec: 09/29/23 15:36 LRN [id number]) Out-Patient Physical Therapy Visit Information Visit Information Visit Type Progress Note Visit Note 9 after PN Visit Start Time 14:01 Visit Stop Time 14:39 Total Visit Minutes 38 Visit Number 19 Evaluation Information Evaluation Date 06/16/23 PT-OP-B Current Condition Start: 06/02/23 18:16 Freq: Status: Active Protocol: Document 06/16/23 12:33 LRN (Rec: 06/16/23 13:28 LRN [id number]) Current Condition History of Current Condition Onset Date Last year worsened after return to gym exer Current Complaints Back pain and R LE pain. History of Current Condition For 25 yrs has had back pain and R hip pain. Variable onset of bilateral leg pain that comes only on one side at a time. States the pain moves around. Walking, standing has worsened her back and shooting pain in R hip on lateral side into the top/ lateral foot. Pain with twisting, like wiping after a BM. Pt reports being referred to PT after imaging comparison to see if her back was worsening. Prior Treatments and Tests X-Ray report 03/23/23: Grade 1 retrolisthesis of L3 on L4 and L2 on L3. Moderate, multilevel degenerative disc disease (pt reported it showed arthritis, impinging on nerves and R hip bursitis). MRI report 03/30/23: Overall similar findings when compared with the MRI dated November 03, 2016 (moderate to severe disc dessication and height loss). There was slightly increased reactive endplate changes at L2-3. No significant canal stenosis or foraminal narrowing of the lumbar spine. Pt reports in/out of PT for years. Last time 10-12 yrs ago had PT and was on an ex program, but then moved and took care of grandson from 8 months old until 8 yrs old. Future Testing and Treatments Planned Next MD visit is after 2 PT treatment visits. Developmental History Developmental History In 1999, bent over into car to pick something up and couldn' t move and straighten up. Pt was living in [place] at the time and was told not to lift >20#. Now when she lifts a gallon of milk she has tightness in the low back that warns her not to lift more. Treatment Goals Patient/Caregiver Goals Pt goal: To learn what she should avoid doing, Be placed on an exercise program. How to keep from aggrevating the LB to avoid increased pain . Current Functional Impairments (Reported) Functional Limitations- ADL's Standing or walking 1 hr or less (causes compaction of spine). Sit for a long time. Sometimes was wakes with pain in the hips and generally sore in hips waking up in morning. Avoids twisting as much as she can. Functional Limitations- Other Vacuming results in pain. Personal Factors Other Personal Factors That May Effect Pt spouse sometimes needs Therapy/Recovery physical assist with tasks, pt has 25 yr history of LBP. PT-OP-C Subjective Start: 06/02/23 18:16 Freq: Status: Active Protocol: Document 09/29/23 14:01 LRN (Rec: 09/29/23 15:36 LRN [id number]) OP-PT Subjective Patient Comments Patient Comments States she has pain all the time, rated 2-3/10. After last session was achy and burny in the back. Next day stood to make food for a couple of hrs and helped spouse by pulling something with arms in an overhead position, then was tired. PT-OP-H Neuro Start: 06/02/23 18:16 Freq: Status: Active Protocol: Document 06/16/23 12:33 LRN (Rec: 06/16/23 13:28 LRN [id number]) Sensation Evaluation Gross Sensation Gross Sensation WNL PT-OP-J Posture/Palpation/Skin Start: 06/02/23 18:16 Freq: Status: Active Protocol: Document 06/16/23 12:33 LRN (Rec: 06/16/23 13:28 LRN [id number]) Posture Evaluation Position Standing T-Spine Posture Increased Kyphosis L-Spine Posture Decreased Lordosis,Shifted Left Scapula Posture (R) Depressed Pelvis Posture (R) Iliac Crest Superior Comments Posture Comments Mild increased lordosis, protruding abdomen Palpation Assessment Location Sacrum Palpation Location Sacrum Palpation Findings Tenderness Palpation Details Sacrum in extension. Hips Palpation Location Gluteals Palpation Details R Gluteals - atrophy L Gluteals - Ms tightness Low back Palpation Location Paraspinals, Interspinous spaces L1 through S1 Palpation Findings Muscle Guarding,Tenderness PT-OP-K Range of Motion Start: 06/02/23 18:16 Freq: Status: Active Protocol: Document 09/15/23 14:08 LRN (Rec: 09/15/23 15:02 LRN [id number]) Hip Goniometric Range of Motion Hip Right Passive Testing Position Supine Straight Leg Raise 65 Internal Rotation 30 External Rotation 75 Left Passive Testing Position Supine Straight Leg Raise 60 Internal Rotation 20 External Rotation 75 PT-OP-L Special Tests Start: 06/02/23 18:16 Freq: Status: Active Protocol: Document 06/16/23 12:33 LRN (Rec: 06/16/23 13:28 LRN [id number]) Special Tests Lumbar Spine Special Tests Straight Leg Raise Test Results + R LE: 75 deg's. L LE: 65 deg's. Comments RLE: Pain in R posterior thigh and hip PT-OP-M Strength Start: 06/02/23 18:16 Freq: Status: Active Protocol: Document 09/15/23 14:08 LRN (Rec: 09/15/23 15:02 LRN [id number]) Hip Strength Hip Manual Muscle Testing Right Extension (S1) 3+ Fair+ Abduction 4 Good Comments Hip strength 5/5 except as indicated above Left Extension (S1) 4 Good PT-OP-Q Treatments Start: 06/02/23 18:16 Freq: Status: Active Protocol: Document 09/29/23 14:01 LRN (Rec: 09/29/23 15:36 LRN [id number]) Therapeutic Exercises Supine Exercises TA/brandon heel slides Supine Exercise Name TA Brandon heel slides - review Comments Cuing for neutral spine and equal mvmt of heels. self traction Supine Exercise Name Pulling self towards head of table, hooklie and knees on pillow Side bilateral Reps/Minutes 8' Comments Extra time taken to determine max tolerated traction. TA/Leg lift Supine Exercise Name TA leg lifts: flex, AB, AD, extension Side bilateral Comments Constant cuing for TA tightening with all leg movements. Hip MMT done. Neutral Spine(NS)/TA/Multifidus/PF Supine Exercise Name Neutral Spine(NS)/TA/ Multifidus/PF Reps/Minutes 2x8 reps Other Exercises Transfers Other Exercise Name Transfer with core stabilization sup<>sit<>stand Comments Constant cuing for neutral spine positioning Manual Therapy Treatment Soft Tissue Mobilization L LS Body Position Sup on pillows Manual Traction Lumbar Details Single Long axis LE pull Body Position Hooklying Reps/Duration 13' Comments Decreased brandon hip pain. Self-Care/Home Management Treatment Education Other Education Reviewed Goals and plan of care, pt agreeable to plan of care. PT-OP-T Assessment and Plan Start: 06/02/23 18:16 Freq: Status: Active Protocol: Document 09/29/23 14:01 LRN (Rec: 09/29/23 15:36 LRN [id number]) Physical Therapy Assessment Rehab Potential Rehabilitation Potential Good Evaluation Complexity Number of Personal Factors/Comorbidities 1-2 Number of Body Systems Impaired 4 or More Clinical Presentation at Evaluation Evolving Impairments Impairments Activity Tolerance,Functional Activities,Pain,Posture,ROM, Soft Tissue Mobility,Strength, Transfers Other Impairments Limited lifting of 20# or greater. Goals Three Impairment Decreased hip strength Impairment R hip: Flex 3+/5, AB 4/5, AD 2/5, (ER/IR WNL). L hip: Flex 3+/5, AB & Ext 3 /5, AD 1/5, ER 3/5 (IR WNL) Short Term Goal (STG) Pt will be independent on a HEP of hip strengthening and mobility ex's. 07/29/23: added fig 4, piriformis stretch and sciatic nerve/active HS stretch R>L LE diminished radiating leg pain. 08/05/23: reviewed added last tx: LTR, piriformis, LE neural glides w/ AP with good response. 08/26/23: HEP: Hip flex, ext, AB, AD strengthening. STG Duration 5 wks (08/26/23) (08/26/23: MET GOAL) Bar Tacker Goal (LTG) Improve hip strength to 4-/5 or greater in areas of weakness. 08/26/23: R hip Ext & AD is 3+ /5, otherwise 5/5. L hip Ext is 3+/5, otherwise 5/5. 09/02/23: reviewed added 08/30 prong LE ext AROM. 09/06/23: improved hip abd/add form/less corrections need awareness, added bug. LTG Duration 10 wks (09/30/23) (09/29/23: MET GOAL) Two Impairment Decreased core strength and stability Impairment Pt limited in functional activities, especially motions including twisting. Short Term Goal (STG) Pt will be educated in movements and activities to avoid. 06/23/23: Pt educated in proper transfer sit<>supine and proper body mechanics. 06/27/23: Educated pt in proper transfer sit<>supine from L side of plinth and in proper body mechanics for her activities of ironing, mopping and vacumming floors. 06/27/23: Educated pt in positions and movements to avoid and educated in hip hinging for activities. STG Duration 6 wks (07/31/23) (06/23/23: MET GOAL) Longterm Goal (LTG) Pt will be able to maintain core stability with MMT of lower extremities to demonstrate improved core stability and strength. 08/05/23: REviewed added TA& Multifidus bridge- painfree today. 08/26/23: Pt able to maintain core stability with v cuing except for hip Ext (IR/ER not assessed) 09/06/23: improved TA/ NS during hip abd/ add sidelying, added bug. 09/29/23: Pt able to maintain core stability if constantly cued during MMT resulting in no onset of back/hip pain. LTG Duration 10 wks (09/30/23) progressing 09/29/23 One Impairment Pt lacks appropriate self care HEP. Short Term Goal (STG) Pt will be educated in log roll transfers, proper body mechanics for ADLs, proper sitting/standing posture. 08/05/23: time spent body mechanics lifting groceries BUE at this time/clse to body and postural alignment squat as needed straight back hip hinge if needed, vacuuming/ sweeping wt shift- better understanding. 08/26/23: Reviewed proper log roll transfers, proper sitting /standing posture. 09/06/23: good Log roll. STG Duration 6 wks (07/31/23) (06/23/23: MET GOAL 09/06/23 progression) Longterm Goal (LTG) Be placed on an exercise program of self care HEP for core strengthening, stabilization and mobility ex' s. 06/27/23: Core: HEP: Neutral spine 07/29/23: Core: Reviewed HEP: TA/multifidus and DL heel slides. 08/02/23: Mobility: added/ reviewed a self quadruped stretching cat/camel and child 's pose and UE/LE ext. Added resisted shld ext with core fac reported. 08/26/23: Core: HEP: NS/ PFtightening with Hip flex, ext, AB, AD strengthening. 08/30/23: added forearm/ knee plank to HEP 09/06/23: added bug. Need review seated and quadruped mechanics playing with [employer] future appt. 09/09/23: I/S pt in NS/arm lifts in prone and sup with UE flex resistance. LTG Duration 10 wks (09/30/23) updated Assessment Summary Assessment Pt is a 78 yo female who initially presented with + R PSLR and very limited mobility of the hips and trunk and weakness of hips. She has greatly improved her hip strength, and stability with v cuing. Since her last appt 2 days ago, the pt reports no significant change in her back and hips. Pt did get pain relief of her bilateral hips with lumbar manual traction. The pt is ready to decrease her frequency of therapy to 1x /week with transition to a home core stabilization program and treatment in clinic to progress her program and reduce her pain with manual, modality and exercise. Physical Therapy Plan Frequency and Duration Frequency of Treatment 1x/Week Duration of treatment (weeks) 7 Plan of Care Start Date 09/29/23 Plan of Care End Date 11/18/23 Therapeutic Interventions Therapeutic Interventions Gait Training,Home Exercise Program,Manual Therapy,Patient /Caregiver Education,Self-Care /Home Management,Sensory Integration,Soft Tissue Mobilization,Therapeutic Activities,Therapeutic Exercises Modalities Cold Pack/Ice Massage,Electric Stimulation,Hot Packs Next Visit Focus/Plan Next Note Type Treatment Note Next Visit Plan Next: Recheck hip mobility & PSLR. Progress core/sacral stabilization on her HEP. Occasional check for need of L /S traction due to disc dessication, progress lower TA tightening. Progress slowly Ex for L2-L3 and L3-L4 extension/ stabilizing, T/S extension and lower T/S stabilization. Manual: Gentle soft tissue mob for T/S (extension avoiding rotation), lumbar traction. Ex's: Trunk (disc dessication) and hip mobility (note: PSLR decreased bilaterally) POC: 2x/wk for core stab lumbar rehab, manual (l/s traction), ex to improve hip/ trunk mobility, modalities as needed for pain.
--- NOTE | 2023-10-06 12:29 | PT.OTN ---
Current Diagnoses Other chronic pain (10/06/23) Spondylosis without myelopathy or radiculopathy, lumbar region (10/06/23) Other intervertebral disc degeneration, lumbar region (10/06/23) Radiculopathy, lumbar region (10/06/23) Low back pain, unspecified (10/06/23) Muscle weakness (generalized) (10/06/23) Physical Therapy Treatment Note PT-OP-A Visit Information Start: 06/02/23 18:16 Freq: Status: Active Protocol: Document 10/06/23 11:23 LRN (Rec: 10/06/23 12:25 LRN [id number]) Out-Patient Physical Therapy Visit Information Visit Information Visit Type Treatment Note Visit Note 1 after PN Visit Start Time 11: Visit Stop Time 12:03 Total Visit Minutes 40 Evaluation Information Evaluation Date 06/16/23 Precautions Precautions LATEX ALLERGY, arthritis, thyroid disorder PT-OP-B Current Condition Start: 06/02/23 18:16 Freq: Status: Active Protocol: Document 06/16/23 12:33 LRN (Rec: 06/16/23 13:28 LRN [id number]) Current Condition History of Current Condition Onset Date Last year worsened after return to gym exer Current Complaints Back pain and R LE pain. History of Current Condition For 25 yrs has had back pain and R hip pain. Variable onset of bilateral leg pain that comes only on one side at a time. States the pain moves around. Walking, standing has worsened her back and shooting pain in R hip on lateral side into the top/ lateral foot. Pain with twisting, like wiping after a BM. Pt reports being referred to PT after imaging comparison to see if her back was worsening. Prior Treatments and Tests X-Ray report 03/23/23: Grade 1 retrolisthesis of L3 on L4 and L2 on L3. Moderate, multilevel degenerative disc disease (pt reported it showed arthritis, impinging on nerves and R hip bursitis). MRI report 03/30/23: Overall similar findings when compared with the MRI dated November 03, 2016 (moderate to severe disc dessication and height loss). There was slightly increased reactive endplate changes at L2-3. No significant canal stenosis or foraminal narrowing of the lumbar spine. Pt reports in/out of PT for years. Last time 10-12 yrs ago had PT and was on an ex program, but then moved and took care of grandson from 8 months old until 8 yrs old. Future Testing and Treatments Planned Next MD visit is after 2 PT treatment visits. Developmental History Developmental History In 1999, bent over into car to pick something up and couldn' t move and straighten up. Pt was living in [place] at the time and was told not to lift >20#. Now when she lifts a gallon of milk she has tightness in the low back that warns her not to lift more. Treatment Goals Patient/Caregiver Goals Pt goal: To learn what she should avoid doing, Be placed on an exercise program. How to keep from aggrevating the LB to avoid increased pain . Current Functional Impairments (Reported) Functional Limitations- ADL's Standing or walking 1 hr or less (causes compaction of spine). Sit for a long time. Sometimes was wakes with pain in the hips and generally sore in hips waking up in morning. Avoids twisting as much as she can. Functional Limitations- Other ........... Vacuming results in pain. Personal Factors Other Personal Factors That May Effect Pt spouse sometimes needs Therapy/Recovery physical assist with tasks, pt has 25 yr history of LBP. PT-OP-C Subjective Start: 06/02/23 18:16 Freq: Status: Active Protocol: Document 10/06/23 11:23 LRN (Rec: 10/06/23 12:25 LRN [id number]) OP-PT Subjective Patient Comments Patient Comments Ache in L SIJ rated 3-4/10. Its the pain she has when walking a lot or being active. Hasn't been any pain sitting . Could sit most of the week. PT-OP-H Neuro Start: 06/02/23 18:16 Freq: Status: Active Protocol: Document 06/16/23 12:33 LRN (Rec: 06/16/23 13:28 LRN [id number]) Sensation Evaluation Gross Sensation Gross Sensation WNL PT-OP-J Posture/Palpation/Skin Start: 06/02/23 18:16 Freq: Status: Active Protocol: Document 06/16/23 12:33 LRN (Rec: 06/16/23 13:28 LRN [id number]) Posture Evaluation Position Standing T-Spine Posture Increased Kyphosis L-Spine Posture Decreased Lordosis,Shifted Left Scapula Posture (R) Depressed Pelvis Posture (R) Iliac Crest Superior Comments Posture Comments Mild increased lordosis, protruding abdomen Palpation Assessment Location Sacrum Palpation Location Sacrum Palpation Findings Tenderness Palpation Details Sacrum in extension. Hips Palpation Location Gluteals Palpation Details R Gluteals - atrophy L Gluteals - Ms tightness Low back Palpation Location Paraspinals, Interspinous spaces L1 through S1 Palpation Findings Muscle Guarding,Tenderness PT-OP-K Range of Motion Start: 06/02/23 18:16 Freq: Status: Active Protocol: Document 09/15/23 14:08 LRN (Rec: 09/15/23 15:02 LRN [id number]) Hip Goniometric Range of Motion Hip Right Passive Testing Position Supine Straight Leg Raise 65 Internal Rotation 30 External Rotation 75 Left Passive Testing Position Supine Straight Leg Raise 60 Internal Rotation 20 External Rotation 75 PT-OP-L Special Tests Start: 06/02/23 18:16 Freq: Status: Active Protocol: Document 06/16/23 12:33 LRN (Rec: 06/16/23 13:28 LRN [id number]) Special Tests Lumbar Spine Special Tests Straight Leg Raise Test Results + R LE: 75 deg's. L LE: 65 deg's. Comments RLE: Pain in R posterior thigh and hip PT-OP-M Strength Start: 06/02/23 18:16 Freq: Status: Active Protocol: Document 09/15/23 14:08 LRN (Rec: 09/15/23 15:02 LRN [id number]) Hip Strength Hip Manual Muscle Testing Right Extension (S1) 3+ Fair+ Abduction 4 Good Comments Hip strength 5/5 except as indicated above Left Extension (S1) 4 Good PT-OP-Q Treatments Start: 06/02/23 18:16 Freq: Status: Active Protocol: Document 10/06/23 11:23 LRN (Rec: 10/06/23 12:25 LRN [id number]) Therapeutic Exercises Sitting Exercises stretching Sitting Exercise Name Sliding arms forward on table. Side bilateral Reps/Minutes 2' Other Exercises Transfer training Other Exercise Name Picking up objects off floor ( reaching symmetrically Reps/Minutes 1' Manual Therapy Treatment Soft Tissue Mobilization R trunk Body Location L/S & mid T/S Paraspinals, R Sacral Border Mobilization Type Strumming,Sustained Pressure Intensity/Depth Moderate Body Position Prone Sacral Balancing Body Location Sacral balancing Mobilization Type Sustained Pressure Intensity/Depth Moderate Body Position Prone Comments Correction of decr'd mob of L sacral sulcus (SS) posteriorly (L PA of SS), and Sacral shear to R x 2. L LS Body Location L Hip flexor (QL) relaxation Mobilization Type Myofascial Release Intensity/Depth Moderate Body Position Sup on pillows Nerve Glides Sidelie: SLR neural glide Nerve Sciatic Details LE in hip flex/AB with ankle PF/IV Body Position Sidelying Reps/Duration 4' PT-OP-T Assessment and Plan Start: 06/02/23 18:16 Freq: Status: Active Protocol: Document 10/06/23 11:23 LRN (Rec: 10/06/23 12:25 LRN [id number]) Physical Therapy Assessment Goals Three Impairment Decreased hip strength Impairment R hip: Flex 3+/5, AB 4/5, AD 2/5, (ER/IR WNL). L hip: Flex 3+/5, AB & Ext 3 /5, AD 1/5, ER 3/5 (IR WNL) Short Term Goal (STG) Pt will be independent on a HEP of hip strengthening and mobility ex's. 07/29/23: added fig 4, piriformis stretch and sciatic nerve/active HS stretch R>L LE diminished radiating leg pain. 08/05/23: reviewed added last tx: LTR, piriformis, LE neural glides w/ AP with good response. 08/26/23: HEP: Hip flex, ext, AB, AD strengthening. STG Duration 5 wks (08/26/23) (08/26/23: MET GOAL) Certified Respiratory Therapist Goal (LTG) Improve hip strength to 4-/5 or greater in areas of weakness. 08/26/23: R hip Ext & AD is 3+ /5, otherwise 5/5. L hip Ext is 3+/5, otherwise 5/5. 09/02/23: reviewed added 08/30 prong LE ext AROM. 09/06/23: improved hip abd/add form/less corrections need awareness, added bug. LTG Duration 10 wks (09/30/23) (09/29/23: MET GOAL) Two Impairment Decreased core strength and stability Impairment Pt limited in functional activities, especially motions including twisting. Short Term Goal (STG) Pt will be educated in movements and activities to avoid. 06/23/23: Pt educated in proper transfer sit<>supine and proper body mechanics. 06/27/23: Educated pt in proper transfer sit<>supine from L side of plinth and in proper body mechanics for her activities of ironing, mopping and vacumming floors. 06/27/23: Educated pt in positions and movements to avoid and educated in hip hinging for activities. STG Duration 6 wks (07/31/23) (06/23/23: MET GOAL) Certified Respiratory Therapist Goal (LTG) Pt will be able to maintain core stability with MMT of lower extremities to demonstrate improved core stability and strength. 08/05/23: REviewed added TA& Multifidus bridge- painfree today. 08/26/23: Pt able to maintain core stability with v cuing except for hip Ext (IR/ER not assessed) 09/06/23: improved TA/ NS during hip abd/ add sidelying, added bug. 09/29/23: Pt able to maintain core stability if constantly cued during MMT resulting in no onset of back/hip pain. LTG Duration 10 wks (09/30/23) progressing 09/29/23 One Impairment Pt lacks appropriate self care HEP. Short Term Goal (STG) Pt will be educated in log roll transfers, proper body mechanics for ADLs, proper sitting/standing posture. 08/05/23: time spent body mechanics lifting groceries BUE at this time/clse to body and postural alignment squat as needed straight back hip hinge if needed, vacuuming/ sweeping wt shift- better understanding. 08/26/23: Reviewed proper log roll transfers, proper sitting /standing posture. 09/06/23: good Log roll. STG Duration 6 wks (07/31/23) (06/23/23: MET GOAL 09/06/23 progression) Correction Goal (LTG) Be placed on an exercise program of self care HEP for core strengthening, stabilization and mobility ex' s. 06/27/23: Core: HEP: Neutral spine 07/29/23: Core: Reviewed HEP: TA/multifidus and DL heel slides. 08/02/23: Mobility: added/ reviewed a self quadruped stretching cat/camel and child 's pose and UE/LE ext. Added resisted shld ext with core fac reported. 08/26/23: Core: HEP: NS/ PFtightening with Hip flex, ext, AB, AD strengthening. 08/30/23: added forearm/ knee plank to HEP 09/06/23: added bug. Need review seated and quadruped mechanics playing with [email or web address] future appt. 09/09/23: I/S pt in NS/arm lifts in prone and sup with UE flex resistance. LTG Duration 10 wks (09/30/23) updated Assessment Summary Assessment Ms tightness in R side of body (paraspinals, hips). 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 Improved mobility in R trunk, hip, and LE after therapy with less tightness/pain. Physical Therapy Plan Frequency and Duration Frequency of Treatment 1x/Week Duration of treatment (weeks) 7 Plan of Care Start Date 09/29/23 Plan of Care End Date 11/18/23 Next Visit Focus/Plan Next Note Type Treatment Note Next Visit Plan Next: Assess response to STM last treatment to R trunk/hip. Recheck PSLR & hip mobility. Progress core/sacral stabilization on her HEP, progress lower TA tightening.. Occasional check for need of L /S traction due to disc dessication. Progress slowly Ex for L2-L3 and L3-L4 extension/ stabilizing, T/S extension and lower T/S stabilization. Manual: Gentle soft tissue mob for T/S (extension avoiding rotation), lumbar traction. Ex's: Trunk (disc dessication) and hip mobility (note: PSLR decreased bilaterally) POC: 2x/wk for core stab lumbar rehab, manual (l/s traction), ex to improve hip/ trunk mobility, modalities as needed for pain.
--- NOTE | 2023-10-25 16:24 | PT.OTN ---
Addendum entered and electronically signed by Carly Austin, PT 10/25/23 16:49: Hip PROM taken: SLR 65 deg's R, 60 deg's L; IR 25 deg's R, 30 deg's L; ER 65 deg's R, 60 deg's L. Original Note: Current Diagnoses Other chronic pain (10/25/23) Spondylosis without myelopathy or radiculopathy, lumbar region (10/25/23) Other intervertebral disc degeneration, lumbar region (10/25/23) Radiculopathy, lumbar region (10/25/23) Low back pain, unspecified (10/25/23) Muscle weakness (generalized) (10/25/23) Physical Therapy Treatment Note PT-OP-A Visit Information Start: 06/02/23 18:16 Freq: Status: Active Protocol: Document 10/25/23 13:45 LRN (Rec: 10/25/23 14:31 LRN [id number]) Out-Patient Physical Therapy Visit Information Visit Information Visit Type Progress Note Visit Note 2 after PN Visit Start Time 13:45 Visit Stop Time 14:30 Total Visit Minutes 45 Visit Number 21 Evaluation Information Evaluation Date 06/16/23 Precautions Precautions LATEX ALLERGY, arthritis, thyroid disorder PT-OP-B Current Condition Start: 06/02/23 18:16 Freq: Status: Active Protocol: Document 06/16/23 12:33 LRN (Rec: 06/16/23 13:28 LRN [id number]) Current Condition History of Current Condition Onset Date Last year worsened after return to gym exer Current Complaints Back pain and R LE pain. History of Current Condition For 25 yrs has had back pain and R hip pain. Variable onset of bilateral leg pain that comes only on one side at a time. States the pain moves around. Walking, standing has worsened her back and shooting pain in R hip on lateral side into the top/ lateral foot. Pain with twisting, like wiping after a BM. Pt reports being referred to PT after imaging comparison to see if her back was worsening. Prior Treatments and Tests X-Ray report 03/23/23: Grade 1 retrolisthesis of L3 on L4 and L2 on L3. Moderate, multilevel degenerative disc disease (pt reported it showed arthritis, impinging on nerves and R hip bursitis). MRI report 03/30/23: Overall similar findings when compared with the MRI dated November 03, 2016 (moderate to severe disc dessication and height loss). There was slightly increased reactive endplate changes at L2-3. No significant canal stenosis or foraminal narrowing of the lumbar spine. Pt reports in/out of PT for years. Last time 10-12 yrs ago had PT and was on an ex program, but then moved and took care of grandson from 8 months old until 8 yrs old. Future Testing and Treatments Planned Next MD visit is after 2 PT treatment visits. Developmental History Developmental History In 1999, bent over into car to pick something up and couldn' t move and straighten up. Pt was living in [place] at the time and was told not to lift >20#. Now when she lifts a gallon of milk she has tightness in the low back that warns her not to lift more. Treatment Goals Patient/Caregiver Goals Pt goal: To learn what she should avoid doing, Be placed on an exercise program. How to keep from aggrevating the LB to avoid increased pain . Current Functional Impairments (Reported) Functional Limitations- ADL's Standing or walking 1 hr or less (causes compaction of spine). Sit for a long time. Sometimes was wakes with pain in the hips and generally sore in hips waking up in morning. Avoids twisting as much as she can. Functional Limitations- Other ........... Vacuming results in pain. Personal Factors Other Personal Factors That May Effect Pt spouse sometimes needs Therapy/Recovery physical assist with tasks, pt has 25 yr history of LBP. PT-OP-C Subjective Start: 06/02/23 18:16 Freq: Status: Active Protocol: Document 10/25/23 13:45 LRN (Rec: 10/25/23 14:31 LRN [id number]) OP-PT Subjective Patient Comments Patient Comments States she has pain on the RLB that radiates down to the ankle. States she uses her rocker chair to relieve the pain. States her pain is manageable, intensity 4/10. States the past 2 days she has been standing a lot. When her pain shoots up she changes positioning. PT-OP-H Neuro Start: 06/02/23 18:16 Freq: Status: Active Protocol: Document 06/16/23 12:33 LRN (Rec: 06/16/23 13:28 LRN [id number]) Sensation Evaluation Gross Sensation Gross Sensation WNL PT-OP-J Posture/Palpation/Skin Start: 06/02/23 18:16 Freq: Status: Active Protocol: Document 06/16/23 12:33 LRN (Rec: 06/16/23 13:28 LRN [id number]) Posture Evaluation Position Standing T-Spine Posture Increased Kyphosis L-Spine Posture Decreased Lordosis,Shifted Left Scapula Posture (R) Depressed Pelvis Posture (R) Iliac Crest Superior Comments Posture Comments Mild increased lordosis, protruding abdomen Palpation Assessment Location Sacrum Palpation Location Sacrum Palpation Findings Tenderness Palpation Details Sacrum in extension. Hips Palpation Location Gluteals Palpation Details R Gluteals - atrophy L Gluteals - Ms tightness Low back Palpation Location Paraspinals, Interspinous spaces L1 through S1 Palpation Findings Muscle Guarding,Tenderness PT-OP-K Range of Motion Start: 06/02/23 18:16 Freq: Status: Active Protocol: Document 09/15/23 14:08 LRN (Rec: 09/15/23 15:02 LRN [id number]) Hip Goniometric Range of Motion Hip Right Passive Testing Position Supine Straight Leg Raise 65 Internal Rotation 30 External Rotation 75 Left Passive Testing Position Supine Straight Leg Raise 60 Internal Rotation 20 External Rotation 75 PT-OP-L Special Tests Start: 06/02/23 18:16 Freq: Status: Active Protocol: Document 06/16/23 12:33 LRN (Rec: 06/16/23 13:28 LRN [id number]) Special Tests Lumbar Spine Special Tests Straight Leg Raise Test Results + R LE: 75 deg's. L LE: 65 deg's. Comments RLE: Pain in R posterior thigh and hip PT-OP-M Strength Start: 06/02/23 18:16 Freq: Status: Active Protocol: Document 09/15/23 14:08 LRN (Rec: 09/15/23 15:02 LRN [id number]) Hip Strength Hip Manual Muscle Testing Right Extension (S1) 3+ Fair+ Abduction 4 Good Comments Hip strength 5/5 except as indicated above Left Extension (S1) 4 Good PT-OP-Q Treatments Start: 06/02/23 18:16 Freq: Status: Active Protocol: Document 10/25/23 13:45 LRN (Rec: 10/25/23 14:31 LRN [id number]) Therapeutic Exercises Supine Exercises Sciatic nerve glide Supine Exercise Name Hamstring stretch Side bilateral Equipment Used grasp behind thigh Reps/Minutes 60 SH x 1 Comments cued ankle mov't, w/ankle counterclockwise AROM for neural gliding Piriformis stretch Supine Exercise Name Piriformis stretch- told do 1st then fig 4 Side bilateral Resistance R>L Equipment Used opp LE straight Reps/Minutes 30 SH Comments good form, IR PROM Taken. Fig 4 stretch Supine Exercise Name Hip ER stretch Side bilateral Comments ER PROM taken Sidelying Exercises Positional training w/TA tightening Sidelying Exercise Name Positional training w/TA tightening Side bilateral Equipment Used 4 pillows, folded towels under small of trunk Reps/Minutes 14' Comments Moving side<>side x 2 for repositioning. NS/PF/Clamshell Sidelying Exercise Name NS/PF/Clamshell Side bilateral Reps/Minutes 15x Comments Cuing for NS/PF contraction NS/PF/Hip AB Sidelying Exercise Name NS/PF/Hip AB Side bilateral Reps/Minutes 15x Comments Cuing to maintain NS openbook Sidelying Exercise Name Open book stretch Side bilateral Reps/Minutes 10 SHx 10 reps each side Comments Phys & v cuing for head/arm movement. Standing Exercises Wall slide Standing Exercise Name Wall slide instructions Reps/Minutes 2' Comments demonstrating proper form to prevent knee translation beyond ankles. Therapeutic Activity Therapeutic Activity on/off floor, 1/2 kneel, quadruped Name on/off floor, 1/2 kneel, quadraped, use of plinth Reps/Minutes 4' Comments Pt cued to face objects when moving them on the floor to avoid trunk rotation. Pt cued to use other knee as support if needed. PT-OP-T Assessment and Plan Start: 06/02/23 18:16 Freq: Status: Active Protocol: Document 10/25/23 13:45 LRN (Rec: 10/25/23 14:31 LRN [id number]) Physical Therapy Assessment Rehab Potential Rehabilitation Potential Good Evaluation Complexity Number of Personal Factors/Comorbidities 1-2 Number of Body Systems Impaired 4 or More Clinical Presentation at Evaluation Evolving Impairments Impairments Activity Tolerance,Functional Activities,Pain,Posture,ROM, Soft Tissue Mobility,Strength, Transfers Other Impairments Limited lifting of 20# or greater. Goals Three Impairment Decreased hip strength Impairment R hip: Flex 3+/5, AB 4/5, AD 2/5, (ER/IR WNL). L hip: Flex 3+/5, AB & Ext 3 /5, AD 1/5, ER 3/5 (IR WNL) Short Term Goal (STG) Pt will be independent on a HEP of hip strengthening and mobility ex's. 07/29/23: added fig 4, piriformis stretch and sciatic nerve/active HS stretch R>L LE diminished radiating leg pain. 08/05/23: reviewed added last tx: LTR, piriformis, LE neural glides w/ AP with good response. 08/26/23: HEP: Hip flex, ext, AB, AD strengthening. STG Duration 5 wks (08/26/23) (08/26/23: MET GOAL) Iron Erector Goal (LTG) Improve hip strength to 4-/5 or greater in areas of weakness. 08/26/23: R hip Ext & AD is 3+ /5, otherwise 5/5. L hip Ext is 3+/5, otherwise 5/5. 09/02/23: reviewed added 08/30 prong LE ext AROM. 09/06/23: improved hip abd/add form/less corrections need awareness, added bug. LTG Duration 10 wks (09/30/23) (09/29/23: MET GOAL) Two Impairment Decreased core strength and stability Impairment Pt limited in functional activities, especially motions including twisting. Short Term Goal (STG) Pt will be educated in movements and activities to avoid. 06/23/23: Pt educated in proper transfer sit<>supine and proper body mechanics. 06/27/23: Educated pt in proper transfer sit<>supine from L side of plinth and in proper body mechanics for her activities of ironing, mopping and vacumming floors. 06/27/23: Educated pt in positions and movements to avoid and educated in hip hinging for activities. STG Duration 6 wks (07/31/23) (06/23/23: MET GOAL) Iron Erector Goal (LTG) Pt will be able to maintain core stability with MMT of lower extremities to demonstrate improved core stability and strength. 08/05/23: REviewed added TA& Multifidus bridge- painfree today. 08/26/23: Pt able to maintain core stability with v cuing except for hip Ext (IR/ER not assessed) 09/06/23: improved TA/ NS during hip abd/ add sidelying, added bug. 09/29/23: Pt able to maintain core stability if constantly cued during MMT resulting in no onset of back/hip pain. LTG Duration 4 wks (11/22/23) progressing 09/29/23 One Impairment Pt lacks appropriate self care HEP. Short Term Goal (STG) Pt will be educated in log roll transfers, proper body mechanics for ADLs, proper sitting/standing posture. 08/05/23: time spent body mechanics lifting groceries BUE at this time/clse to body and postural alignment squat as needed straight back hip hinge if needed, vacuuming/ sweeping wt shift- better understanding. 08/26/23: Reviewed proper log roll transfers, proper sitting /standing posture. 09/06/23: good Log roll. STG Duration 6 wks (07/31/23) (06/23/23: MET GOAL 09/06/23 progression) Mcc Goal (LTG) Be placed on an exercise program of self care HEP for core strengthening, stabilization and mobility ex' s. 06/27/23: Core: HEP: Neutral spine 07/29/23: Core: Reviewed HEP: TA/multifidus and DL heel slides. 08/02/23: Mobility: added/ reviewed a self quadruped stretching cat/camel and child 's pose and UE/LE ext. Added resisted shld ext with core fac reported. 08/26/23: Core: HEP: NS/ PFtightening with Hip flex, ext, AB, AD strengthening. 08/30/23: added forearm/ knee plank to HEP 09/06/23: added bug. Need review seated and quadruped mechanics playing with [employer] appt. 09/09/23: I/S pt in NS/arm lifts in prone and sup with UE flex resistance. LTG Duration 4 wks (11/22/23) updated 09/09 Assessment Summary Assessment Pt is a 78 yo female who initially presented with + R PSLR and very limited mobility of the hips and trunk and weakness of hips. She is experiencing periods of no pain, but has occasional onset of R hip pain and is having trouble sleeping at night after lying on her side. Today she was able to relieve lower leg pain in sidelie positioning with towel under the lateral trunk and pillows propping front/back of trunk; therefore further education and training positioning to alleviate pain would be beneficial for this pt as she transitions to an independent program. Her hip mobility has decreased as she is not consitent with home stretches; therefore further review is recommended. The pt would benefit from completion of her rehab program to include LE strengthening to help pt move more easily with functional activities; therefore LTG's were updated. Physical Therapy Plan Frequency and Duration Frequency of Treatment 1x/Week Duration of treatment (weeks) 4 Plan of Care Start Date 10/25/23 Plan of Care End Date 11/22/23 Therapeutic Interventions Therapeutic Interventions Gait Training,Home Exercise Program,Manual Therapy,Patient /Caregiver Education,Self-Care /Home Management,Sensory Integration,Soft Tissue Mobilization,Therapeutic Activities,Therapeutic Exercises Modalities Cold Pack/Ice Massage,Electric Stimulation,Hot Packs Next Visit Focus/Plan Next Note Type Treatment Note Next Visit Plan Next: Add wall squats and knee strengthening ex's ( shuttle recovery) with focus still on core stabilization. Progress core/sacral stabilization on her HEP, progress lower TA tightening. Occasional check for need of L /S traction due to disc dessication. Progress slowly Ex for L2-L3 and L3-L4 extension/ stabilizing, T/S extension and lower T/S stabilization. Manual: Gentle soft tissue mob for T/S (extension avoiding rotation), lumbar traction. Ex's: Trunk (disc dessication) and hip mobility (note: PSLR decreased bilaterally) POC: 2x/wk for core stab lumbar rehab, manual (l/s traction), ex to improve hip/ trunk mobility, modalities as needed for pain.
--- NOTE | 2023-10-25 16:26 | PT-OP ANOTE ---
Addendum to note 10/25/23: Hip PROM: SLR 65 deg's R, 60 deg's L; IR 25 deg's R, 30 deg's L; ER 65 deg's R, 60 deg's L.
--- NOTE | 2023-11-01 16:02 | PT.OTN ---
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, lumbar region (11/01/23) Radiculopathy, lumbar region (11/01/23) Low back pain, unspecified (11/01/23) Muscle weakness (generalized) (11/01/23) Physical Therapy Treatment Note PT-OP-A Visit Information Start: 06/02/23 18:16 Freq: Status: Active Protocol: Document 11/01/23 13:01 LRN (Rec: 11/01/23 13:47 LRN [id number]) Out-Patient Physical Therapy Visit Information Visit Information Visit Type Treatment Note Visit Note 3 after PN Visit Start Time 13:01 Visit Stop Time 13:44 Total Visit Minutes 43 Visit Number 22 Evaluation Information Evaluation Date 06/16/23 Precautions Precautions LATEX ALLERGY, arthritis, thyroid disorder PT-OP-B Current Condition Start: 06/02/23 18:16 Freq: Status: Active Protocol: Document 06/16/23 12:33 LRN (Rec: 06/16/23 13:28 LRN [id number]) Current Condition History of Current Condition Onset Date Last year worsened after return to gym exer Current Complaints Back pain and R LE pain. History of Current Condition For 25 yrs has had back pain and R hip pain. Variable onset of bilateral leg pain that comes only on one side at a time. States the pain moves around. Walking, standing has worsened her back and shooting pain in R hip on lateral side into the top/ lateral foot. Pain with twisting, like wiping after a BM. Pt reports being referred to PT after imaging comparison to see if her back was worsening. Prior Treatments and Tests X-Ray report 03/23/23: Grade 1 retrolisthesis of L3 on L4 and L2 on L3. Moderate, multilevel degenerative disc disease (pt reported it showed arthritis, impinging on nerves and R hip bursitis). MRI report 03/30/23: Overall similar findings when compared with the MRI dated November 03, 2016 (moderate to severe disc dessication and height loss). There was slightly increased reactive endplate changes at L2-3. No significant canal stenosis or foraminal narrowing of the lumbar spine. Pt reports in/out of PT for years. Last time 10-12 yrs ago had PT and was on an ex program, but then moved and took care of grandson from 8 months old until 6 yrs old. Future Testing and Treatments Planned Next MD visit is after 2 PT treatment visits. Developmental History Developmental History In 1999, bent over into car to pick something up and couldn' t move and straighten up. Pt was living in [place] at the time and was told not to lift >20#. Now when she lifts a gallon of milk she has tightness in the low back that warns her not to lift more. Treatment Goals Patient/Caregiver Goals Pt goal: To learn what she should avoid doing, Be placed on an exercise program. How to keep from aggrevating the LB to avoid increased pain . Current Functional Impairments (Reported) Functional Limitations- ADL's Standing or walking 1 hr or less (causes compaction of spine). Sit for a long time. Sometimes was wakes with pain in the hips and generally sore in hips waking up in morning. Avoids twisting as much as she can. Functional Limitations- Other ........... Vacuming results in pain. Personal Factors Other Personal Factors That May Effect Pt spouse sometimes needs Therapy/Recovery physical assist with tasks, pt has 25 yr history of LBP. PT-OP-C Subjective Start: 06/02/23 18:16 Freq: Status: Active Protocol: Document 11/01/23 13:01 LRN (Rec: 11/01/23 13:47 LRN [id number]) OP-PT Subjective Patient Comments Patient Comments Sleeping on back so hasn't had pain in the hips. Doing pretty good. Little bit of pain in posterolateral L hip, rated 2-3/10. Gets tired if stands too long. Walk in house w/shoes to avoid fischer splints. No pain in L hip after treatment. PT-OP-H Neuro Start: 06/02/23 18:16 Freq: Status: Active Protocol: Document 06/16/23 12:33 LRN (Rec: 06/16/23 13:28 LRN [id number]) Sensation Evaluation Gross Sensation Gross Sensation WNL PT-OP-J Posture/Palpation/Skin Start: 06/02/23 18:16 Freq: Status: Active Protocol: Document 06/16/23 12:33 LRN (Rec: 06/16/23 13:28 LRN [id number]) Posture Evaluation Position Standing T-Spine Posture Increased Kyphosis L-Spine Posture Decreased Lordosis,Shifted Left Scapula Posture (R) Depressed Pelvis Posture (R) Iliac Crest Superior Comments Posture Comments Mild increased lordosis, protruding abdomen Palpation Assessment Location Sacrum Palpation Location Sacrum Palpation Findings Tenderness Palpation Details Sacrum in extension. Hips Palpation Location Gluteals Palpation Details R Gluteals - atrophy L Gluteals - Ms tightness Low back Palpation Location Paraspinals, Interspinous spaces L1 through S1 Palpation Findings Muscle Guarding,Tenderness PT-OP-K Range of Motion Start: 06/02/23 18:16 Freq: Status: Active Protocol: Document 09/15/23 14:08 LRN (Rec: 09/15/23 15:02 LRN [id number]) Hip Goniometric Range of Motion Hip Right Passive Testing Position Supine Straight Leg Raise 65 Internal Rotation 30 External Rotation 75 Left Passive Testing Position Supine Straight Leg Raise 60 Internal Rotation 20 External Rotation 75 PT-OP-L Special Tests Start: 06/02/23 18:16 Freq: Status: Active Protocol: Document 06/16/23 12:33 LRN (Rec: 06/16/23 13:28 LRN [id number]) Special Tests Lumbar Spine Special Tests Straight Leg Raise Test Results + R LE: 75 deg's. L LE: 65 deg's. Comments RLE: Pain in R posterior thigh and hip PT-OP-M Strength Start: 06/02/23 18:16 Freq: Status: Active Protocol: Document 09/15/23 14:08 LRN (Rec: 09/15/23 15:02 LRN [id number]) Hip Strength Hip Manual Muscle Testing Right Extension (S1) 3+ Fair+ Abduction 4 Good Comments Hip strength 5/5 except as indicated above Left Extension (S1) 4 Good PT-OP-Q Treatments Start: 06/02/23 18:16 Freq: Status: Active Protocol: Document 11/01/23 13:01 LRN (Rec: 11/01/23 13:47 LRN [id number]) Therapeutic Exercises Supine Exercises Bridge in Neutral Spine Supine Exercise Name Bridge in neutral spine Reps/Minutes 15 x 2 & 10x 1 after STM. DKTC stretch Supine Exercise Name DKTC stretch Reps/Minutes 2' Comments R hip tighter than L; cued not to stretch into pain. SKTC stretch Supine Exercise Name SKTC stretch Side bilateral Reps/Minutes 3' Hands/knees push Supine Exercise Name Hands/knees push into ball Equipment Used Small Ball Reps/Minutes 10 SH x 10 Comments Cuing to tighten TA while holding push for lower ab tightening TA/brandon heel slides Supine Exercise Name TA Brandon heel slides - review Comments Cuing for neutral spine and equal mvmt of heels. bug Supine Exercise Name bug (pic from self binder given to her in past progression use) Side bilateral Resistance BUE/ BLE ext (LE approx 45 deg ) Reps/Minutes 10x Comments ed/cue for reach range allowance can maintain TA/NS needed back pnfree Sciatic nerve glide Supine Exercise Name Hamstring stretch Side bilateral Equipment Used grasp behind thigh Reps/Minutes 60 SH x 1 Comments cued ankle mov't, w/ankle counterclockwise AROM for neural gliding Piriformis stretch Supine Exercise Name Piriformis stretch- told do 1st then fig 4 Side bilateral Resistance R>L Equipment Used opp LE straight Reps/Minutes 30 SH Comments good form, IR PROM Taken. Standing Exercises Plank Standing Exercise Name Fwd lean onto hands at Ex Counter. Toes 20 from counter Reps/Minutes 10 SH x 6 Comments Cuing for neutral spine positioning of core, and breathing. Wall slide Standing Exercise Name Wall slide instructions Reps/Minutes 15x 2 Comments Cuing to keep Sacrum/head against wall. Manual Therapy Treatment Soft Tissue Mobilization Iliopsoas Body Location Ilipsoas release bilaterally Mobilization Type Sustained Pressure Intensity/Depth Moderate Body Position Supine PT-OP-T Assessment and Plan Start: 06/02/23 18:16 Freq: Status: Active Protocol: Document 11/01/23 13:01 LRN (Rec: 11/01/23 13:47 LRN [id number]) Physical Therapy Assessment Goals Three Impairment Decreased hip strength Impairment R hip: Flex 3+/5, AB 4/5, AD 2/5, (ER/IR WNL). L hip: Flex 3+/5, AB & Ext 3 /5, AD 1/5, ER 3/5 (IR WNL) Short Term Goal (STG) Pt will be independent on a HEP of hip strengthening and mobility ex's. 07/29/23: added fig 4, piriformis stretch and sciatic nerve/active HS stretch R>L LE diminished radiating leg pain. 08/05/23: reviewed added last tx: LTR, piriformis, LE neural glides w/ AP with good response. 08/26/23: HEP: Hip flex, ext, AB, AD strengthening. STG Duration 5 wks (08/26/23) (08/26/23: MET GOAL) Residential Goal (LTG) Improve hip strength to 4-/5 or greater in areas of weakness. 08/26/23: R hip Ext & AD is 3+ /5, otherwise 5/5. L hip Ext is 3+/5, otherwise 5/5. 09/02/23: reviewed added 08/30 prong LE ext AROM. 09/06/23: improved hip abd/add form/less corrections need awareness, added bug. LTG Duration 10 wks (09/30/23) (09/29/23: MET GOAL) Two Impairment Decreased core strength and stability Impairment Pt limited in functional activities, especially motions including twisting. Short Term Goal (STG) Pt will be educated in movements and activities to avoid. 06/23/23: Pt educated in proper transfer sit<>supine and proper body mechanics. 06/27/23: Educated pt in proper transfer sit<>supine from L side of plinth and in proper body mechanics for her activities of ironing, mopping and vacumming floors. 06/27/23: Educated pt in positions and movements to avoid and educated in hip hinging for activities. STG Duration 6 wks (07/31/23) (06/23/23: MET GOAL) Residential Goal (LTG) Pt will be able to maintain core stability with MMT of lower extremities to demonstrate improved core stability and strength. 08/05/23: REviewed added TA& Multifidus bridge- painfree today. 08/26/23: Pt able to maintain core stability with v cuing except for hip Ext (IR/ER not assessed) 09/06/23: improved TA/ NS during hip abd/ add sidelying, added bug. 09/29/23: Pt able to maintain core stability if constantly cued during MMT resulting in no onset of back/hip pain. LTG Duration 4 wks (11/22/23) progressing 09/29/23 One Impairment Pt lacks appropriate self care HEP. Short Term Goal (STG) Pt will be educated in log roll transfers, proper body mechanics for ADLs, proper sitting/standing posture. 08/05/23: time spent body mechanics lifting groceries BUE at this time/clse to body and postural alignment squat as needed straight back hip hinge if needed, vacuuming/ sweeping wt shift- better understanding. 08/26/23: Reviewed proper log roll transfers, proper sitting /standing posture. 09/06/23: good Log roll. STG Duration 6 wks (07/31/23) (06/23/23: MET GOAL 09/06/23 progression) Residential Goal (LTG) Be placed on an exercise program of self care HEP for core strengthening, stabilization and mobility ex' s. 06/27/23: Core: HEP: Neutral spine 07/29/23: Core: Reviewed HEP: TA/multifidus and DL heel slides. 08/02/23: Mobility: added/ reviewed a self quadruped stretching cat/camel and child 's pose and UE/LE ext. Added resisted shld ext with core fac reported. 08/26/23: Core: HEP: NS/ PFtightening with Hip flex, ext, AB, AD strengthening. 08/30/23: added forearm/ knee plank to HEP 09/06/23: added bug. Need review seated and quadruped mechanics playing with [employer] appt. 09/09/23: I/S pt in NS/arm lifts in prone and sup with UE flex resistance. 11/01/23: I/S pt in standing plank LTG Duration 4 wks (11/22/23) updated 11/01 Assessment Summary Assessment Pt appears to be improving in core stability with lessen c/o LBP. Pt not sidesleeping as much; therefore less pressure on hips. R hip Piriformis stretch is painful; therefore tight R. No c/o hip or LBP with core ex's today. Physical Therapy Plan Frequency and Duration Frequency of Treatment 1x/Week Duration of treatment (weeks) 4 Plan of Care Start Date 10/25/23 Plan of Care End Date 11/22/23 Next Visit Focus/Plan Next Note Type Treatment Note Next Visit Plan Next: Add wall squats and knee strengthening ex's ( shuttle recovery) with focus on core stabilization. Progress core/sacral stabilization on her HEP, progress lower TA tightening ( try off the wall ex). Occasional check for need of L /S traction due to disc dessication. Progress slowly Ex for L2-L3 and L3-L4 extension/ stabilizing, T/S extension and lower T/S stabilization. Manual: Gentle soft tissue mob for T/S (extension avoiding rotation), lumbar traction. Ex's: Trunk (disc dessication) and hip mobility (note: PSLR decreased bilaterally) POC: 2x/wk for core stab lumbar rehab, manual (l/s traction), ex to improve hip/ trunk mobility, modalities as needed for pain.
--- NOTE | 2023-11-06 13:38 | PT-OP ANOTE ---
PT to update POC next visit 11/15, due to on next scheduled appt with RADIOLOGIC TECH on 11/22/23.
--- NOTE | 2023-11-15 14:47 | PT.OTN ---
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, lumbar region (11/15/23) Radiculopathy, lumbar region (11/15/23) Low back pain, unspecified (11/15/23) Muscle weakness (generalized) (11/15/23) Physical Therapy Treatment Note PT-OP-A Visit Information Start: 06/02/23 18:16 Freq: Status: Active Protocol: Document 11/15/23 13:50 LRN (Rec: 11/15/23 14:46 LRN [id number]) Out-Patient Physical Therapy Visit Information Visit Information Visit Type Treatment Note Visit Note 4 after PN Visit Start Time 13:50 Visit Stop Time 14:30 Total Visit Minutes 40 Visit Number 23 Evaluation Information Evaluation Date 06/16/23 Precautions Precautions LATEX ALLERGY, arthritis, thyroid disorder PT-OP-B Current Condition Start: 06/02/23 18:16 Freq: Status: Active Protocol: Document 06/16/23 12:33 LRN (Rec: 06/16/23 13:28 LRN [id number]) Current Condition History of Current Condition Onset Date Last year worsened after return to gym exer Current Complaints Back pain and R LE pain. History of Current Condition For 25 yrs has had back pain and R hip pain. Variable onset of bilateral leg pain that comes only on one side at a time. States the pain moves around. Walking, standing has worsened her back and shooting pain in R hip on lateral side into the top/ lateral foot. Pain with twisting, like wiping after a BM. Pt reports being referred to PT after imaging comparison to see if her back was worsening. Prior Treatments and Tests X-Ray report 03/23/23: Grade 1 retrolisthesis of L3 on L4 and L2 on L3. Moderate, multilevel degenerative disc disease (pt reported it showed arthritis, impinging on nerves and R hip bursitis). MRI report 03/30/23: Overall similar findings when compared with the MRI dated November 03, 2016 (moderate to severe disc dessication and height loss). There was slightly increased reactive endplate changes at L2-3. No significant canal stenosis or foraminal narrowing of the lumbar spine. Pt reports in/out of PT for years. Last time 10-12 yrs ago had PT and was on an ex program, but then moved and took care of grandson from 8 months old until 8 yrs old. Future Testing and Treatments Planned Next MD visit is after 2 PT treatment visits. Developmental History Developmental History In 1999, bent over into car to pick something up and couldn' t move and straighten up. Pt was living in [place] at the time and was told not to lift >20#. Now when she lifts a gallon of milk she has tightness in the low back that warns her not to lift more. Treatment Goals Patient/Caregiver Goals Pt goal: To learn what she should avoid doing, Be placed on an exercise program. How to keep from aggrevating the LB to avoid increased pain . Current Functional Impairments (Reported) Functional Limitations- ADL's Standing or walking 1 hr or less (causes compaction of spine). Sit for a long time. Sometimes was wakes with pain in the hips and generally sore in hips waking up in morning. Avoids twisting as much as she can. Functional Limitations- Other ........... Vacuming results in pain. Personal Factors Other Personal Factors That May Effect Pt spouse sometimes needs Therapy/Recovery physical assist with tasks, pt has 25 yr history of LBP. PT-OP-C Subjective Start: 06/02/23 18:16 Freq: Status: Active Protocol: Document 11/15/23 13:50 LRN (Rec: 11/15/23 14:46 LRN [id number]) OP-PT Subjective Patient Comments Patient Comments Less Sciatic and R hip pain at the end of the day. Able to sleep at night with HOB slightly elevated and pillow under knees. Having R upper back pain just under the R shoulder blade. PT-OP-H Neuro Start: 06/02/23 18:16 Freq: Status: Active Protocol: Document 06/16/23 12:33 LRN (Rec: 06/16/23 13:28 LRN [id number]) Sensation Evaluation Gross Sensation Gross Sensation WNL PT-OP-J Posture/Palpation/Skin Start: 06/02/23 18:16 Freq: Status: Active Protocol: Document 06/16/23 12:33 LRN (Rec: 06/16/23 13:28 LRN [id number]) Posture Evaluation Position Standing T-Spine Posture Increased Kyphosis L-Spine Posture Decreased Lordosis,Shifted Left Scapula Posture (R) Depressed Pelvis Posture (R) Iliac Crest Superior Comments Posture Comments Mild increased lordosis, protruding abdomen Palpation Assessment Location Sacrum Palpation Location Sacrum Palpation Findings Tenderness Palpation Details Sacrum in extension. Hips Palpation Location Gluteals Palpation Details R Gluteals - atrophy L Gluteals - Ms tightness Low back Palpation Location Paraspinals, Interspinous spaces L1 through S1 Palpation Findings Muscle Guarding,Tenderness PT-OP-K Range of Motion Start: 06/02/23 18:16 Freq: Status: Active Protocol: Document 09/15/23 14:08 LRN (Rec: 09/15/23 15:02 LRN [id number]) Hip Goniometric Range of Motion Hip Right Passive Testing Position Supine Straight Leg Raise 65 Internal Rotation 30 External Rotation 75 Left Passive Testing Position Supine Straight Leg Raise 60 Internal Rotation 20 External Rotation 75 PT-OP-L Special Tests Start: 06/02/23 18:16 Freq: Status: Active Protocol: Document 06/16/23 12:33 LRN (Rec: 06/16/23 13:28 LRN [id number]) Special Tests Lumbar Spine Special Tests Straight Leg Raise Test Results + R LE: 75 deg's. L LE: 65 deg's. Comments RLE: Pain in R posterior thigh and hip PT-OP-M Strength Start: 06/02/23 18:16 Freq: Status: Active Protocol: Document 09/15/23 14:08 LRN (Rec: 09/15/23 15:02 LRN [id number]) Hip Strength Hip Manual Muscle Testing Right Extension (S1) 3+ Fair+ Abduction 4 Good Comments Hip strength 5/5 except as indicated above Left Extension (S1) 4 Good PT-OP-Q Treatments Start: 06/02/23 18:16 Freq: Status: Active Protocol: Document 11/15/23 13:50 LRN (Rec: 11/15/23 14:46 LRN [id number]) Gym Equipment Shuttle Recovery Bilateral Squats Details Brandon squats, cuing for core stab in NS. Resistance 25#10x, 50#-10x, 62#-2x Shuttle Recovery Platform Stable Reps/Time 6' Therapeutic Exercises Supine Exercises Sciatic nerve glide Supine Exercise Name Kick the head and Kick the head off ex Side bilateral Reps/Minutes 5x each Prone Exercises Knee flex for Quad stretch Prone Exercise Name Knee flexion for Quad stretch Side bilateral Reps/Minutes 2' Comments Pt not tolerate due to abeominal pain onset. Sidelying Exercises openbook Sidelying Exercise Name Open book stretch Side bilateral Reps/Minutes 10 SHx 10 reps each side Comments Phys & v cuing for head/arm movement, minimal stretch noted Standing Exercises Ilipsoas stretch Standing Exercise Name Iliopsoas stretch Side bilateral Reps/Minutes 6' R shoulder Flex Standing Exercise Name Shoulder flex at full flexion Side right Reps/Minutes 10 SH x 10 Trunk R SB Standing Exercise Name R SB Side right Reps/Minutes 10 SH x 6 Wall slide Standing Exercise Name Wall slide instructions Reps/Minutes 15x 2 Comments Cuing to keep Sacrum/head against wall. Self-Care/Home Management Treatment Education Patient Education Home Exercise Program Activities Self-Care/Home Management Activities Issued & reviewed HEP: LE neural glide: Kick the Head Off & Kick the Head ex. PT-OP-T Assessment and Plan Start: 06/02/23 18:16 Freq: Status: Active Protocol: Document 11/15/23 13:50 LRN (Rec: 11/15/23 14:46 LRN [id number]) Physical Therapy Assessment Goals Three Impairment Decreased hip strength Impairment R hip: Flex 3+/5, AB 4/5, AD 2/5, (ER/IR WNL). L hip: Flex 3+/5, AB & Ext 3 /5, AD 1/5, ER 3/5 (IR WNL) Short Term Goal (STG) Pt will be independent on a HEP of hip strengthening and mobility ex's. 07/29/23: added fig 4, piriformis stretch and sciatic nerve/active HS stretch R>L LE diminished radiating leg pain. 08/05/23: reviewed added last tx: LTR, piriformis, LE neural glides w/ AP with good response. 08/26/23: HEP: Hip flex, ext, AB, AD strengthening. STG Duration 5 wks (08/26/23) (08/26/23: MET GOAL) [employer] Goal (LTG) Improve hip strength to 4-/5 or greater in areas of weakness. 08/26/23: R hip Ext & AD is 3+ /5, otherwise 5/5. L hip Ext is 3+/5, otherwise 5/5. 09/02/23: reviewed added 08/30 prong LE ext AROM. 09/06/23: improved hip abd/add form/less corrections need awareness, added bug. LTG Duration 10 wks (09/30/23) (09/29/23: MET GOAL) Two Impairment Decreased core strength and stability Impairment Pt limited in functional activities, especially motions including twisting. Short Term Goal (STG) Pt will be educated in movements and activities to avoid. 06/23/23: Pt educated in proper transfer sit<>supine and proper body mechanics. 06/27/23: Educated pt in proper transfer sit<>supine from L side of plinth and in proper body mechanics for her activities of ironing, mopping and vacumming floors. 06/27/23: Educated pt in positions and movements to avoid and educated in hip hinging for activities. STG Duration 6 wks (07/31/23) (06/23/23: MET GOAL) Professor [employer] Goal (LTG) Pt will be able to maintain core stability with MMT of lower extremities to demonstrate improved core stability and strength. 08/05/23: REviewed added TA& Multifidus bridge- painfree today. 08/26/23: Pt able to maintain core stability with v cuing except for hip Ext (IR/ER not assessed) 09/06/23: improved TA/ NS during hip abd/ add sidelying, added bug. 09/29/23: Pt able to maintain core stability if constantly cued during MMT resulting in no onset of back/hip pain. LTG Duration 4 wks (11/22/23) progressing 09/29/23 One Impairment Pt lacks appropriate self care HEP. Short Term Goal (STG) Pt will be educated in log roll transfers, proper body mechanics for ADLs, proper sitting/standing posture. 08/05/23: time spent body mechanics lifting groceries BUE at this time/clse to body and postural alignment squat as needed straight back hip hinge if needed, vacuuming/ sweeping wt shift- better understanding. 08/26/23: Reviewed proper log roll transfers, proper sitting /standing posture. 09/06/23: good Log roll. STG Duration 6 wks (07/31/23) (06/23/23: MET GOAL 09/06/23 progression) Half-Way Goal (LTG) Be placed on an exercise program of self care HEP for core strengthening, stabilization and mobility ex' s. 06/27/23: Core: HEP: Neutral spine 07/29/23: Core: Reviewed HEP: TA/multifidus and DL heel slides. 08/02/23: Mobility: added/ reviewed a self quadruped stretching cat/camel and child 's pose and UE/LE ext. Added resisted shld ext with core fac reported. 08/26/23: Core: HEP: NS/ PFtightening with Hip flex, ext, AB, AD strengthening. 08/30/23: added forearm/ knee plank to HEP 09/06/23: added bug. Need review seated and quadruped mechanics playing with [employer] appt. 09/09/23: I/S pt in NS/arm lifts in prone and sup with UE flex resistance. 11/01/23: I/S pt in standing plank 11/15/23: HEP: LE neural glide: Kick the Head & Kick the Head Off. LTG Duration 4 wks (11/22/23) updated Assessment Summary Assessment Overall R LB/LE pain is less. Pt able to perform LE neural glide without onset of LE pain . R upper back pain may be from mild C-curve at mid thoracic level (apex on the right) or possible something internal, as pt is unable to lie prone without upper abdominal pain. Physical Therapy Plan Frequency and Duration Frequency of Treatment 1x/Week Duration of treatment (weeks) 4 Plan of Care Start Date 10/25/23 Plan of Care End Date 11/22/23 Next Visit Focus/Plan Next Note Type Discharge Summary Next Visit Plan Next: Assess for discharge. Focus on core stabilization and continue wall squats and knee strengthening ex's ( shuttle recovery). Check core stability with MMT of lower extremities. Check hip mobility. Progress lower TA tightening (try off the wall ex). Occasional check for need of L /S traction due to disc dessication. Progress slowly Ex for L2-L3 and L3-L4 extension/ stabilizing, T/S extension and lower T/S stabilization. Ex's: Trunk (disc dessication) and hip mobility (note: PSLR decreased bilaterally)
--- NOTE | 2023-11-24 15:05 | PT.OTN ---
Addendum entered and electronically signed by Carly Austin, PT 11/24/23 15:08: Hip PROM taken (supine): R hip (in deg's): SLR 70, IR 35, ER 75. L hip (in deg's): SLR 75, IR 30, ER 75. Original Note: Current Diagnoses Other chronic pain (11/24/23) Spondylosis without myelopathy or radiculopathy, lumbar region (11/24/23) Other intervertebral disc degeneration, lumbar region (11/24/23) Radiculopathy, lumbar region (11/24/23) Low back pain, unspecified (11/24/23) Muscle weakness (generalized) (11/24/23) Physical Therapy Treatment Note PT-OP-A Visit Information Start: 06/02/23 18:16 Freq: Status: Active Protocol: Document 11/24/23 13:46 LRN (Rec: 11/24/23 15:02 LRN [id number]) Out-Patient Physical Therapy Visit Information Visit Information Visit Type Treatment Note Visit Note 5 after PN Visit Start Time 13:46 Visit Stop Time 15:31 Total Visit Minutes 45 Visit Number 24 Evaluation Information Evaluation Date 06/16/23 Precautions Precautions LATEX ALLERGY, arthritis, thyroid disorder PT-OP-B Current Condition Start: 06/02/23 18:16 Freq: Status: Active Protocol: Document 06/16/23 12:33 LRN (Rec: 06/16/23 13:28 LRN [id number]) Current Condition History of Current Condition Onset Date Last year worsened after return to gym exer Current Complaints Back pain and R LE pain. History of Current Condition For 25 yrs has had back pain and R hip pain. Variable onset of bilateral leg pain that comes only on one side at a time. States the pain moves around. Walking, standing has worsened her back and shooting pain in R hip on lateral side into the top/ lateral foot. Pain with twisting, like wiping after a BM. Pt reports being referred to PT after imaging comparison to see if her back was worsening. Prior Treatments and Tests X-Ray report 03/23/23: Grade 1 retrolisthesis of L3 on L4 and L2 on L3. Moderate, multilevel degenerative disc disease (pt reported it showed arthritis, impinging on nerves and R hip bursitis). MRI report 5/10/23: Overall similar findings when compared with the MRI dated November 03, 2016 (moderate to severe disc dessication and height loss). There was slightly increased reactive endplate changes at L2-3. No significant canal stenosis or foraminal narrowing of the lumbar spine. Pt reports in/out of PT for years. Last time 10-12 yrs ago had PT and was on an ex program, but then moved and took care of grandson from 8 months old until 8 yrs old. Future Testing and Treatments Planned Next MD visit is after 2 PT treatment visits. Developmental History Developmental History In 1999, bent over into car to pick something up and couldn' t move and straighten up. Pt was living in [place] at the time and was told not to lift >20#. Now when she lifts a gallon of milk she has tightness in the low back that warns her not to lift more. Treatment Goals Patient/Caregiver Goals Pt goal: To learn what she should avoid doing, Be placed on an exercise program. How to keep from aggrevating the LB to avoid increased pain . Current Functional Impairments (Reported) Functional Limitations- ADL's Standing or walking 1 hr or less (causes compaction of spine). Sit for a long time. Sometimes was wakes with pain in the hips and generally sore in hips waking up in morning. Avoids twisting as much as she can. Functional Limitations- Other ........... Vacuming results in pain. Personal Factors Other Personal Factors That May Effect Pt spouse sometimes needs Therapy/Recovery physical assist with tasks, pt has 25 yr history of LBP. PT-OP-C Subjective Start: 06/02/23 18:16 Freq: Status: Active Protocol: Document 11/24/23 13:46 LRN (Rec: 11/24/23 15:02 LRN [id number]) OP-PT Subjective Patient Comments Patient Comments After sitting in a hard chair has heaviness in the low back. Had burning pain in the sciatic nerve for a day and after sleeping on her back for a couple days the pain went away. Patient Questionnaires Oswestry Low Back Index Oswestry Score 15 Oswestry Impairment 1 to 19% Impaired (Score 1-19) OP-PT Pain Assessment Pain Assessment Grid Paper Pain Assessment Grid Completed Yes Location Low back Pain Location Details R Lateral hip and R lateral leg Intensity 2 Scale Used Numeric (0 - 10) PT-OP-H Neuro Start: 06/02/23 18:16 Freq: Status: Active Protocol: Document 06/16/23 12:33 LRN (Rec: 06/16/23 13:28 LRN [id number]) Sensation Evaluation Gross Sensation Gross Sensation WNL PT-OP-J Posture/Palpation/Skin Start: 06/02/23 18:16 Freq: Status: Active Protocol: Document 06/16/23 12:33 LRN (Rec: 06/16/23 13:28 LRN [id number]) Posture Evaluation Position Standing T-Spine Posture Increased Kyphosis L-Spine Posture Decreased Lordosis,Shifted Left Scapula Posture (R) Depressed Pelvis Posture (R) Iliac Crest Superior Comments Posture Comments Mild increased lordosis, protruding abdomen Palpation Assessment Location Sacrum Palpation Location Sacrum Palpation Findings Tenderness Palpation Details Sacrum in extension. Hips Palpation Location Gluteals Palpation Details R Gluteals - atrophy L Gluteals - Ms tightness Low back Palpation Location Paraspinals, Interspinous spaces L1 through S1 Palpation Findings Muscle Guarding,Tenderness PT-OP-K Range of Motion Start: 06/02/23 18:16 Freq: Status: Active Protocol: Document 11/24/23 13:46 LRN (Rec: 11/24/23 15:02 LRN [id number]) Hip Goniometric Range of Motion Hip Right Passive Testing Position Supine Straight Leg Raise 70 Internal Rotation 35 External Rotation 75 Left Passive Testing Position Supine Straight Leg Raise 75 Internal Rotation 30 External Rotation 75 PT-OP-L Special Tests Start: 06/02/23 18:16 Freq: Status: Active Protocol: Document 06/16/23 12:33 LRN (Rec: 06/16/23 13:28 LRN [id number]) Special Tests Lumbar Spine Special Tests Straight Leg Raise Test Results + R LE: 75 deg's. L LE: 65 deg's. Comments RLE: Pain in R posterior thigh and hip PT-OP-M Strength Start: 06/02/23 18:16 Freq: Status: Active Protocol: Document 09/15/23 14:08 LRN (Rec: 09/15/23 15:02 LRN [id number]) Hip Strength Hip Manual Muscle Testing Right Extension (S1) 3+ Fair+ Abduction 4 Good Comments Hip strength 5/5 except as indicated above Left Extension (S1) 4 Good PT-OP-Q Treatments Start: 06/02/23 18:16 Freq: Status: Active Protocol: Document 11/24/23 13:46 LRN (Rec: 11/24/23 15:02 LRN [id number]) Therapeutic Exercises Supine Exercises Hip ER stretch Supine Exercise Name Hip ER stretch Side bilateral Reps/Minutes 3x Comments ROM taken after stretch DKTC stretch Supine Exercise Name Verbal review SKTC stretch Supine Exercise Name SKTC Side bilateral Reps/Minutes 1x bug Supine Exercise Name bug with legs in 2 step- out positions Side bilateral Reps/Minutes 3x Comments cued for core stability. TA/Leg lift Supine Exercise Name TA leg lifts: flex, extension Side bilateral Comments Cuing for TA tightening with hip ext movement. Hip MMT done. Sciatic nerve glide Supine Exercise Name Hamstring stretch with ankle pumps. Side bilateral Reps/Minutes 5x each Comments PSLR taken Piriformis stretch Supine Exercise Name Piriformis stretch Side bilateral Equipment Used opp LE straight Reps/Minutes 30 SH Comments good form, IR PROM Taken. Prone Exercises Plank Prone Exercise Name hands/knees & feet/elbows Reps/Minutes 4' NS/PF/hip ext Prone Exercise Name NS/PF/Hip Ext Side bilateral Equipment Used pelvis over 2 pillows Reps/Minutes 8 reps each LE Comments Review- keep NS from trunk rotating- good painfree Sidelying Exercises NS/PF/Hip AB & AD Sidelying Exercise Name NS/PF/Hip AB & AD Side bilateral Resistance Manual resistance Reps/Minutes 2x Comments good form, self TA/NS corrections Self-Care/Home Management Treatment Education Patient Education Home Exercise Program Activities Self-Care/Home Management Activities Together with pt reviewed at length her HEP and organized program for exer, then stretch . 4-5 exercises+stretches, then a different 4 exercises+ stretch, alternating the ex's. PT-OP-T Assessment and Plan Start: 06/02/23 18:16 Freq: Status: Active Protocol: Document 11/24/23 13:46 LRN (Rec: 11/24/23 15:02 LRN [id number]) Physical Therapy Assessment Goals Three Impairment Decreased hip strength Impairment R hip: Flex 3+/5, AB 4/5, AD 2/5, (ER/IR WNL). L hip: Flex 3+/5, AB & Ext 3 /5, AD 1/5, ER 3/5 (IR WNL) Short Term Goal (STG) Pt will be independent on a HEP of hip strengthening and mobility ex's. 07/29/23: added fig 4, piriformis stretch and sciatic nerve/active HS stretch R>L LE diminished radiating leg pain. 08/05/23: reviewed added last tx: LTR, piriformis, LE neural glides w/ AP with good response. 08/26/23: HEP: Hip flex, ext, AB, AD strengthening. STG Duration 5 wks (08/26/23) (08/26/23: MET GOAL) [employer] Goal (LTG) Improve hip strength to 4-/5 or greater in areas of weakness. 08/26/23: R hip Ext & AD is 3+ /5, otherwise 5/5. L hip Ext is 3+/5, otherwise 5/5. 09/02/23: reviewed added 08/30 prong LE ext AROM. 09/06/23: improved hip abd/add form/less corrections need awareness, added bug. LTG Duration 10 wks (09/30/23) (09/29/23: MET GOAL) Two Impairment Decreased core strength and stability Impairment Pt limited in functional activities, especially motions including twisting. Short Term Goal (STG) Pt will be educated in movements and activities to avoid. 06/23/23: Pt educated in proper transfer sit<>supine and proper body mechanics. 06/27/23: Educated pt in proper transfer sit<>supine from L side of plinth and in proper body mechanics for her activities of ironing, mopping and vacumming floors. 06/27/23: Educated pt in positions and movements to avoid and educated in hip hinging for activities. STG Duration 6 wks (07/31/23) (06/23/23: MET GOAL) Street [employer] Goal (LTG) Pt will be able to maintain core stability with MMT of lower extremities to demonstrate improved core stability and strength. 08/05/23: REviewed added TA& Multifidus bridge- painfree today. 08/26/23: Pt able to maintain core stability with v cuing except for hip Ext (IR/ER not assessed) 09/06/23: improved TA/ NS during hip abd/ add sidelying, added bug. 09/29/23: Pt able to maintain core stability if constantly cued during MMT resulting in no onset of back/hip pain.\ 11/24/23: Pt able to maintain core stability with hip MMT except hip ext required initial v. cuing. LTG Duration 4 wks (11/22/23) (11/24/23: MET GOAL) One Impairment Pt lacks appropriate self care HEP. Short Term Goal (STG) Pt will be educated in log roll transfers, proper body mechanics for ADLs, proper sitting/standing posture. 08/05/23: time spent body mechanics lifting groceries BUE at this time/clse to body and postural alignment squat as needed straight back hip hinge if needed, vacuuming/ sweeping wt shift- better understanding. 08/26/23: Reviewed proper log roll transfers, proper sitting /standing posture. 09/06/23: good Log roll. STG Duration 6 wks (07/31/23) (06/23/23: MET GOAL 09/06/23) Mcc Goal (LTG) Be placed on an exercise program of self care HEP for core strengthening, stabilization and mobility ex' s. 06/27/23: Core: HEP: Neutral spine 07/29/23: Core: Reviewed HEP: TA/multifidus and DL heel slides. 08/02/23: Mobility: added/ reviewed a self quadruped stretching cat/camel and child 's pose and UE/LE ext. Added resisted shld ext with core fac reported. 08/26/23: Core: HEP: NS/ PFtightening with Hip flex, ext, AB, AD strengthening. 08/30/23: added forearm/ knee plank to HEP 09/06/23: added bug. Need review seated and quadruped mechanics playing with HEMING[employer]AY appt. 09/09/23: I/S pt in NS/arm lifts in prone and sup with UE flex resistance. 11/01/23: I/S pt in standing plank 11/15/23: HEP: LE neural glide: Kick the Head & Kick the Head Off. LTG Duration 4 wks (11/22/23) (11/24/23: MET GOAL) Assessment Summary Assessment Pt has met all her goals. Her impairment decreased from 17% to 15% and her pain has reduced from 4-6/10 to 0-1/10 and 1-2/10. The pt had increase in sciatic pain after ROM stretching, indicating tightness of the hip muscles that may be a source of sciatic nerve irritation. The pt is using modalities (ice/ heat) at home to help manage her pain. All goals have been met, therefore no further therapy is planned. Physical Therapy Plan Discharge Physical Therapy Discharge Reasons Goals Met Discharge Comments The pt has chronic sciatic pain that has minimized to therapy to a tolerable level. If the pt experiences a flair up in the future we would be more than happy to work with this pleasant individual again . Thank you for your referral.
== END 2023-11-30 08:43 | disposition home or self-care (01) ==
LOC: PHYS 13:45
PROVIDERS: Absent Provider Family Medicine; Family Provider Family Medicine; PCP Family Medicine; Referring Provider Anesthesiology; Visit Provider Anesthesiology
DX: M51.36 Other intervertebral disc degeneration, lumbar region (principal); M47.816 Spondylosis without myelopathy or radiculopathy, lumbar region; M54.50 Low back pain, unspecified; G89.29 Other chronic pain; M54.16 Radiculopathy, lumbar region; M62.81 Muscle weakness (generalized)
CPT/HCPCS: 97110; 97140; 97162; 97530; 97535

== ENCOUNTER → 2024-07-26 08:32 | Outpatient (CLI) | payer MEDICARE, SELFPAY ==
[2024-07-26 09:56] LABS: Add Manual Diff / Slide Review NO; Basophils Absolute Auto 0 /uL (0-100); Basophils Percent Auto 0.7 % (0-2); Eosinophils Absolute Auto 100 /uL (0-450); Hematocrit 38.6 % (36-46); Hemoglobin 13.1 g/dL (12.0-16.0); Lymphocytes Absolute Auto 1100 /uL (1100-4500); Lymphocytes Percent Auto 31.1 % (25-40); Mean Corpuscular HGB Conc 33.9 % (30-36); Mean Corpuscular Hemoglobin 32.3 PG (26-34); Mean Corpuscular Volume 95.3 fL (80-100); Monocytes Absolute Auto 300 /uL (0-900); Neutrophils Absolute Auto 2000 /uL (1500-7000); Neutrophils Percent Auto 58.2 % (50-75); Platelet Count 188 X10^3/uL (150-400); Red Blood Cell Count 4.05 X10^6/uL (4.0-5.2); Red Cell Distribution Width 13.3 % (11.6-14.8); White Blood Cell Count 3.4 X10^3/uL (4.5-11.0)
[2024-07-26 10:23] LABS: Alanine Aminotransferase 24 IU/L (<35); Albumin Globulin Ratio 1.5 (1.0-2.8); Alkaline Phosphatase 56 U/L (38-126); Aspartate Aminotransferase 29 IU/L (14-36); BUN Creatinine Ratio 23.5 (6-22); Bilirubin Total 0.4 mg/dL (0.2-1.3); Blood Urea Nitrogen 23 mg/dL (7-17); Calcium 9.4 mg/dL (8.4-10.2); Carbon Dioxide 28 mmol/L (22-32); Chloride 105 mmol/L (98-107); Cholesterol 205 mg/dL (140-199); Estimated Glomerular Filt Rate 59 mL/min (>60); Globulin 2.6 g/dL (1.7-4.1); Glucose 94 mg/dL (80-110); HDL Cholesterol 83 mg/dL (40-60); HEMOLYSIS < 15 (0-50); LDL Cholesterol Calculated 95 mg/dL (<100); Potassium 5.2 mmol/L (3.4-5.1); Sodium 139 mmol/L (137-145); Total Protein 6.6 g/dL (6.3-8.2); Triglycerides 137 mg/dL (35-150)
[2024-07-26 11:01] LABS: Thyroid Stimulating Hormone 1.02 uIU/mL (0.47-4.68)
[2024-07-27 01:56] LABS: HIV 1 & 2 Ab/Ag 4th Gen Combo NEGATIVE (NEGATIVE); Hep C Virus Ab w/Reflex Quant NEGATIVE s/c (NEGATIVE)
== END ==
PROVIDERS: Family Provider Family Medicine; PCP Family Medicine; Referring Provider Family Medicine; Visit Provider Family Medicine
DX: Z13.9 Encounter for screening, unspecified (principal); E03.9 Hypothyroidism, unspecified; Z78.0 Asymptomatic menopausal state
CPT/HCPCS: 36415; 80053; 80061; 84443; 85025; 86803; 87389

== ENCOUNTER → 2024-08-23 13:58 | Outpatient (CLI) | payer MEDICARE, SELFPAY ==
[2024-08-23 14:36] LABS: Add Manual Diff / Slide Review NO; Basophils Absolute Auto 0 /uL (0-100); Basophils Percent Auto 0.5 % (0-2); Eosinophils Absolute Auto 0 /uL (0-450); Eosinophils Percent Auto 0.8 % (2-4); Hematocrit 37.4 % (36-46); Hemoglobin 12.8 g/dL (12.0-16.0); Lymphocytes Absolute Auto 1100 /uL (1100-4500); Lymphocytes Percent Auto 25.9 % (25-40); Mean Corpuscular HGB Conc 34.3 % (30-36); Mean Corpuscular Hemoglobin 32.5 PG (26-34); Mean Corpuscular Volume 94.7 fL (80-100); Monocytes Absolute Auto 300 /uL (0-900); Monocytes Percent Auto 7.1 % (3-14); Neutrophils Absolute Auto 2900 /uL (1500-7000); Neutrophils Percent Auto 65.7 % (50-75); Platelet Count 196 X10^3/uL (150-400); Red Blood Cell Count 3.95 X10^6/uL (4.0-5.2); Red Cell Distribution Width 13.5 % (11.6-14.8); White Blood Cell Count 4.4 X10^3/uL (4.5-11.0)
[2024-08-23 14:43] LABS: Hemoglobin A1C% w Est Avg Glu 5.3 % (4.0-6.0)
[2024-08-23 15:00] LABS: Alanine Aminotransferase 18 IU/L (<35); Albumin 3.9 g/dL (3.5-5.0); Albumin Globulin Ratio 1.5 (1.0-2.8); Alkaline Phosphatase 47 U/L (38-126); Aspartate Aminotransferase 22 IU/L (14-36); BUN Creatinine Ratio 26.1 (6-22); Bilirubin Total 0.4 mg/dL (0.2-1.3); Blood Urea Nitrogen 23 mg/dL (7-17); Calcium 9.5 mg/dL (8.4-10.2); Carbon Dioxide 29 mmol/L (22-32); Chloride 103 mmol/L (98-107); Estimated Glomerular Filt Rate > 60 mL/min (>60); Globulin 2.6 g/dL (1.7-4.1); Glucose 118 mg/dL (80-110); HEMOLYSIS < 15 (0-50); Potassium 4.3 mmol/L (3.4-5.1); Sodium 136 mmol/L (137-145); Total Protein 6.5 g/dL (6.3-8.2)
== END ==
PROVIDERS: Family Provider Family Medicine; PCP Family Medicine; Referring Provider Family Medicine; Visit Provider Family Medicine
DX: D72.819 Decreased white blood cell count, unspecified (principal); Z13.6 Encounter for screening for cardiovascular disorders
CPT/HCPCS: 36415; 80053; 83036; 85025

== ENCOUNTER → 2024-08-30 12:09 | Outpatient (CLI) | payer MEDICARE, SELFPAY ==
[2024-08-30 15:00] LABS: HEMOLYSIS < 15 (0-50); Iron 113 ug/dL (37-170)
[2024-08-30 15:12] LABS: Percent Iron Saturation 37 % (15-50); Total Iron Binding Capacity 304 ug/dL (265-497); Transferrin 239 mg/dL (206-381)
[2024-08-30 15:36] LABS: Ferritin 62 ng/mL (11-264)
[2024-08-30 15:50] LABS: Vitamin B12 410 pg/mL (239-931)
== END ==
PROVIDERS: Family Provider Family Medicine; PCP Family Medicine; Referring Provider Family Medicine; Visit Provider Family Medicine
DX: D64.9 Anemia, unspecified (principal); D72.819 Decreased white blood cell count, unspecified; R53.83 Other fatigue
CPT/HCPCS: 36415; 82306; 82607; 82728; 83540; 83550

== ENCOUNTER → 2024-10-03 11:29 | Outpatient (CLI) | payer MEDICARE, SELFPAY ==
--- NOTE | 2024-10-03 12:00 | DI.MG.S_ITS ---
BILATERAL DIGITAL SCREENING MAMMOGRAM 3D/2D WITH CAD: 10/03/2024 CLINICAL: Routine screening. Family history of breast cancer. Comparison is made to exams dated: 09/29/2023 mammogram, 09/21/2022 mammogram, 09/14/2021 mammogram, 09/05/2020 mammogram, and 10/24/2023 mammogram - [facility]. The breasts are heterogeneously dense, which may obscure small masses (category c / 51-75% glandular tissue). Current study was also evaluated with a Computer Aided Detection (CAD) system. No significant masses, calcifications, or other findings are seen in either breast. There has been no significant interval change. IMPRESSION: NEGATIVE There is no mammographic evidence of malignancy. A 1 year screening mammogram is recommended. Based on the Tyrer Cuzick model (a risk assessment model) the patient's lifetime risk is 5.6% and her 10 year risk is 0.0%. According to the ACR, ACS, and NCCN guidelines, an annual breast MRI exam along with mammogram is recommended if the patient's lifetime risk is 20% or greater. This exam was interpreted at Station ID: [id number]. NOTE: For mammograms, a report in lay terms will be sent to the patient. Approximately 15% of breast malignancies will not be visualized mammographically. In the management of a palpable breast mass, a negative mammogram must not discourage biopsy of a clinically suspicious lesion. Electronically Signed By: Isidro villalobos/niyah:10/03/2024 12:27:34 letter sent: Normal Exam ACR BI-RADS Category 1: Negative
--- NOTE | 2024-10-03 12:00 | DI.RAD.S_ITS ---
PROCEDURE: XR DEXA AXIAL SKELETON INDICATIONS: Post menopause COMPARISON: [facility], CR, XR DEXA AXIAL SKELETON, 09/24/2019, 12:55. FINDINGS: Lumbar Spine: Bone mineral density 1.202 g/cm2, T score 1.1, previously 1.2. Left Hip: Bone mineral density 0.972 g/cm2, T score 0.2, previously 0.0 Left Femoral Neck: Bone mineral density 0.813 g/cm2, T score -0.3, previously -0.7. Right Hip: Bone mineral density 0.977 g/cm2, T score 0.3, previously -0.3. Right Femoral Neck: Bone mineral density 0.83 g/cm2, T score -0.1, previously -0.8. Fracture Risk Calculation (when applicable): 10-year fracture risk of a major osteoporotic fracture 13 percent and of a hip fracture 4.7 percent. (T score greater or equal to -1.0 to: NORMAL) (T score from -1.1 to -2.4: OSTEOPENIA) (T score less than or equal to -2.5: OSTEOPOROSIS) IMPRESSION: 1. Normal bone density of the lumbar spine. 2. Normal bone density of the hips and femoral necks. Follow-up guidelines as follows: Osteoporosis: Consider a repeat DEXA and Vertebral Fracture Assessment (VFA) exam in 2 years or sooner if medically necessary, to reassess this patient's status. Osteopenia: Consider a repeat DEXA in 2-3 years to reassess this patient's status, or if there is a new clinical indication. Normal: Consider a repeat DEXA in 5 years or sooner, or if there is a new clinical indication. All treatment decisions require clinical judgment and consideration of individual patient factors, including patient preferences, comorbidities, previous drug use, risk factors not captured in the FRAX model (e.g., frailty, falls, vitamin D deficiency, increased bone turnover, interval significant decline in bone density ) and possible under- or over-estimation of fracture risk by FRAX. In addition, the NOF Guide recommends that FDA-approved medical therapies be considered in postmenopausal women and men age >= 50 years with a: * Hip or vertebral (clinical or morphometric) fracture * T-score of <=-2.5 at the spine or hip * Ten-year fracture probability by FRAX of >= 3% for hip fracture or >=20% for major osteoporotic fracture. People with diagnosed cases of osteoporosis or at high risk for fracture should have regular bone mineral density tests. For patients eligible for Medicare, routine testing is allowed once every 2 years. The testing frequency can be increased to one year for patients who have rapidly progressing disease, those who are receiving or discontinuing medical therapy to restore bone mass, or have additional risk factors. Dictated by: Lino Wing M.D. on 10/03/2024 at 16:33 Approved by: Lino Wing M.D. on 10/03/2024 at 16:36
== END ==
PROVIDERS: Family Provider Family Medicine; PCP Family Medicine; Referring Provider Family Medicine; Visit Provider Family Medicine
DX: Z12.31 Encounter for screening mammogram for malignant neoplasm of breast (principal); R92.333 Mammographic heterogeneous density, bilateral breasts; Z78.0 Asymptomatic menopausal state; Z80.3 Family history of malignant neoplasm of breast
CPT/HCPCS: 77063; 77067; 77080

== ENCOUNTER → 2025-09-03 08:28 | Outpatient (CLI) | payer MEDICARE, SELFPAY ==
[2025-09-03 08:58] LABS: Add Manual Diff / Slide Review NO; Hematocrit 39.0 % (36-46); Hemoglobin 13.3 g/dL (12.0-16.0); Lymphocytes Absolute Auto 900 /uL (1100-4500); Mean Corpuscular HGB Conc 34.2 % (30-36); Mean Corpuscular Hemoglobin 31.7 PG (26-34); Mean Corpuscular Volume 92.7 fL (80-100); Platelet Count 191 X10^3/uL (150-400)
[2025-09-03 09:05] LABS: Hemoglobin A1C% w Est Avg Glu 5.6 % (4.0-6.0)
[2025-09-03 09:21] LABS: Alanine Aminotransferase 19 IU/L (<35); Albumin 4.0 g/dL (3.5-5.0); Albumin Globulin Ratio 1.5 (1.0-2.8); Alkaline Phosphatase 59 U/L (38-126); Blood Urea Nitrogen 21 mg/dL (7-17); Calcium 9.5 mg/dL (8.4-10.2); Carbon Dioxide 32 mmol/L (22-32); Chloride 103 mmol/L (98-107); Cholesterol 194 mg/dL (140-199); Estimated Glomerular Filt Rate > 60 mL/min (>60); Globulin 2.7 g/dL (1.7-4.1); Glucose 97 mg/dL (70-99); HDL Cholesterol 81 mg/dL (40-60); HEMOLYSIS < 15 (0-50); Potassium 4.2 mmol/L (3.4-5.1); Sodium 138 mmol/L (137-145); Total Protein 6.7 g/dL (6.3-8.2); Triglycerides 134 mg/dL (35-150)
[2025-09-03 09:51] LABS: TSH w/ Reflex to FT4 0.97 uIU/mL (0.47-4.68)
== END ==
PROVIDERS: Family Provider Family Medicine; PCP Family Medicine; Referring Provider Family Medicine; Visit Provider Family Medicine
DX: D64.9 Anemia, unspecified (principal); Z79.899 Other long term (current) drug therapy; E03.9 Hypothyroidism, unspecified; E87.5 Hyperkalemia; R73.09 Other abnormal glucose
CPT/HCPCS: 36415; 80053; 80061; 83036; 84443; 85025

== ENCOUNTER → 2025-09-05 10:54 | Outpatient (CLI) | payer MEDICARE, SELFPAY ==
[2025-09-05 12:17] LABS: Add Manual Diff / Slide Review NO; Hematocrit 38.6 % (36-46); Hemoglobin 13.0 g/dL (12.0-16.0); Lymphocytes Absolute Auto 1000 /uL (1100-4500); Mean Corpuscular HGB Conc 33.7 % (30-36); Mean Corpuscular Hemoglobin 31.4 PG (26-34); Mean Corpuscular Volume 93.0 fL (80-100); Platelet Count 189 X10^3/uL (150-400)
[2025-09-05 13:22] LABS: Ferritin 39 ng/mL (11-264)
[2025-09-05 13:35] LABS: Vitamin B12 324 pg/mL (239-931)
== END ==
PROVIDERS: Family Provider Family Medicine; PCP Family Medicine; Referring Provider Family Medicine; Visit Provider Family Medicine
DX: D72.819 Decreased white blood cell count, unspecified (principal)
CPT/HCPCS: 82607; 82728; 85025

== ENCOUNTER → 2025-09-18 13:36 | Outpatient (CLI) | payer MEDICARE, SELFPAY ==
[2025-09-18 14:07] LABS: Add Manual Diff / Slide Review NO; Hematocrit 38.4 % (36-46); Hemoglobin 13.1 g/dL (12.0-16.0); Lymphocytes Absolute Auto 1500 /uL (1100-4500); Mean Corpuscular HGB Conc 34.2 % (30-36); Mean Corpuscular Hemoglobin 31.5 PG (26-34); Mean Corpuscular Volume 92.0 fL (80-100); Platelet Count 196 X10^3/uL (150-400)
[2025-09-18 15:21] LABS: Ferritin 43 ng/mL (11-264)
[2025-09-18 15:38] LABS: Vitamin B12 347 pg/mL (239-931)
[2025-09-23 13:41] LABS: Albumin 3.9 g/dL (2.9-4.4); Alpha-1-Globulin 0.2 g/dL (0.0-0.4); Alpha-2-Globulin 0.5 g/dL (0.4-1.0); Gamma Globulin 1.0 g/dL (0.4-1.8)
[2025-09-24 13:13] LABS: Alpha-1 Globulin, Ur 0.0 % (.)
== END ==
PROVIDERS: Family Provider Family Medicine; PCP Family Medicine; Referring Provider Family Medicine; Visit Provider Family Medicine
DX: N39.498 Other specified urinary incontinence (principal); D72.819 Decreased white blood cell count, unspecified
CPT/HCPCS: 36415; 82607; 82728; 84155; 84156; 84165; 84166; 85025

== ENCOUNTER → 2025-11-05 10:57 | Outpatient (CLI) | payer MEDICARE, SELFPAY ==
--- NOTE | 2025-11-05 10:58 | DI.MG.S_ITS ---
MM screening mammo BI: 11/05/2025. BI-RADS: 1 CLINICAL: 80-year old female for bilateral screening mammogram. Tyrer-Cuzick lifetime risk of 5.4%. No personal or first-degree family history of breast cancer. Current reported family history of breast cancer: maternal aunt. The patient had a prior right breast biopsy. PRIOR EXAMS: 10/03/2024, 10/24/2023, 09/29/2023, 09/21/2022, 09/21/2021, 09/14/2021, 09/05/2020, 07/27/2019, 08/24/2017. MAMMOGRAPHY TECHNIQUE: 2D and 3D (tomosynthesis) digital mammographic views obtained, with additional images as needed for full coverage. Current study was also evaluated with a Computer Aided Detection (CAD) system. DENSITY C. The breasts are heterogeneously dense, which may obscure small masses. MAMMOGRAPHY FINDINGS Bilateral: No suspicious mass, asymmetry, microcalcification, or other abnormality seen. IMPRESSION: * No evidence of malignancy. RECOMMENDATIONS Bilateral * Annual screening mammography. OVERALL ASSESSMENT CATEGORY BI-RADS-1: Negative. The [employer] recommends annual screening mammography beginning at age 40 for women with average risk of breast cancer. ELECTRONICALLY SIGNED: Shira Garza M.D. on 11/05/2025 at 05:49:33 PM PT Interpreting Station ID: [id number]
== END ==
LOC: MAMMO 10:58
PROVIDERS: PCP Family Medicine; Referring Provider Family Medicine; Visit Provider Family Medicine
DX: Z12.31 Encounter for screening mammogram for malignant neoplasm of breast (principal); Z80.3 Family history of malignant neoplasm of breast; R92.333 Mammographic heterogeneous density, bilateral breasts
CPT/HCPCS: 77063; 77067